=== PATIENT | male | born 1970 | race Caucasian/White ===

== ENCOUNTER 2017-10-14 20:08 | Emergency (ER) | payer SELFPAY ==
[2017-10-14] MEDS ORDERED: NS 0.9% 1000 ML* 1,000 ML IV ONE (20:29)
[2017-10-14] MEDS ORDERED: Ondansetron ODT TAB* 4 MG PO ONE (20:29)
[2017-10-14] MEDS ORDERED: Morphine INJ* 4 MG/ML 1 ML CARPUJECT IV ONE (20:29)
[2017-10-14] MEDS ORDERED: Tetan/Diph/Pertus SYR(Tdap)* 0.5 ML SYR(BOOSTRIX) use SYR IM ONE (20:29)
[2017-10-14 20:56] LABS: ABS Basophils 0.1 10^3/ul (0-0.2); ABS Eosinophils 0.2 10^3/ul (0-0.6); ABS Lymphocytes 1.9 10^3/ul (1.0-4.8); ABS Neutrophils 7.3 10^3/ul (1.5-7.7); ABS Nucleated RBC 0 10^3/ul; Eosinophil % 1.5 % (0-6); Hematocrit 50 % (42-52); Hemoglobin 16.8 g/dl (14.0-18.0); Lymphocyte % 18.1 % (25-47); Mean Corpuscular HGB Conc 34 g/dl (31-36); Mean Corpuscular Hemoglobin 28 pg (27-31); Mean Corpuscular Volume 81 fL (80-94); Mean Platelet Volume 9 um3 (7.4-10.4); Nucleated Red Blood Cells % 0.1; Platelet Count 153 10^3/ul (150-450); Red Blood Count 6.14 10^6/ul (4.0-5.4); Red Cell Distribution Width 14 % (10.5-15); White Blood Count 10.5 10^3/ul (3.5-10.8)
[2017-10-14 21:06] LABS: INR 0.96 (0.77-1.02)
[2017-10-14 21:09] LABS: EGFR Non-African American 63.7 (>60)
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
[2017-10-14] MEDS ORDERED: Ketorolac INJ* 30 MG/ML 1 ML VIAL ONE (22:38)
[2017-10-14] MEDS ORDERED: Ketorolac INJ* 30 MG/ML 1 ML VIAL IV PUSH ONE (22:39)
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
[2017-10-14 23:47] VITALS: BP 137/84
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
== END 2017-10-14 23:50 | disposition home or self-care (01) ==
LOC: ED 20:08
DX: S61.411A Laceration without foreign body of right hand, initial encounter (principal); V49.9XXA Car occupant (driver) (passenger) injured in unspecified traffic accident, initial encounter; Y92.410 Unspecified street and highway as the place of occurrence of the external cause; M54.2 Cervicalgia; R10.31 Right lower quadrant pain; Z87.891 Personal history of nicotine dependence
CPT/HCPCS: 12001; 36415; 70450; 71045; 72125; 80053; 82150; 82550; 83690; 85025; 85610; 85730; 90715; 96374; 99283; A9270-GY; J1885; J2270

== ENCOUNTER 2017-10-21 20:50 | Emergency (ER) | payer SELFPAY ==
[2017-10-21] MEDS ORDERED: Clindamycin CAP* 150 MG PO ONE (23:15)
[2017-10-21] MEDS ORDERED: oxyCODONE/Acetamin 5/325 MG* TAB PO ONE (23:15)
[2017-10-21 23:56] VITALS: BP 143/95
--- NOTE | 2017-10-22 00:03 | ED ---
Yael Presley Edward, scribed for Kirill Stephen MD on 10/21/17 at 2317 . Laceration/Wound HPI - HPI Summary HPI Summary: 47 y/o male presents to the ED c/o severe R hand pain at the site of previous laceration. Pain rated 8/10 in severity. Pt had his laceration sutured around 1 week ago. Today the pain became worse. Denies fever. Pain is aggravated to touch. Ibuprofen not alleviating pain. - History of Current Complaint Stated Complaint: RIGHT HAND INJURY Time Seen by Provider: 10/21/17 23:02 Hx Obtained From: Patient Onset/Duration: Lasting Days Aggravating: Other - touch Alleviating: Nothing Pain Intensity: 8 Pain Scale Used: 0-10 Numeric Associated Signs & Symptoms: Pain - Allergy/Home Medications Allergies/Adverse Reactions: Allergies Allergy/AdvReac Type Severity Reaction Status Date / Time No Known Allergies Allergy Verified 02/14/16 10:11 PMH/Surg Hx/FS Hx/Imm Hx Previously Healthy: No Cardiovascular History: Denies: Hx Myocardial Infarction Respiratory History: Reports: Hx Chronic Obstructive Pulmonary Disease (COPD) Psychiatric History: Reports: Hx Bipolar Disorder - Surgical History Surgery Procedure, Year, and Place: SINUS SURGERY, LAMINECTOMY 2008 Infectious Disease History: No Infectious Disease History: Denies: Traveled Outside the US in Last 30 Days - Family History Known Family History: Positive: Cardiac Disease - [place] (father, mother, grandparents), Diabetes - (father, mother, grandparents) - Social History Alcohol Use: None Substance Use Type: Reports: None Smoking Status (MU): Former Smoker Review of Systems Constitutional: Negative Eyes: Negative ENT: Negative Cardiovascular: Negative Respiratory: Negative Gastrointestinal: Negative Genitourinary: Negative Musculoskeletal: Negative Skin: Other - R hand pain at suture site Neurological: Negative Psychological: Normal All Other Systems Reviewed And Are Negative: Yes Physical Exam - Summary Physical Exam Summary: VITAL SIGNS: Reviewed. GENERAL: Patient is a well-developed and nourished male who is lying comfortable in the stretcher. Patient is not in any acute respiratory distress. HEAD AND FACE: No signs of trauma. No ecchymosis, hematomas or skull depressions. No sinus tenderness. EYES: PERRLA, EOMI x 2, No injected conjunctiva, no nystagmus. EARS: Hearing grossly intact. Ear canals and tympanic membranes are within normal limits. MOUTH: Oropharynx within normal limits. NECK: Supple, trachea is midline, no adenopathy, no JVD, no carotid bruit, no c- spine tenderness, neck with full ROM. CHEST: Symmetric, no tenderness at palpation LUNGS: Clear to auscultation bilaterally. No wheezing or crackles. CVS: Regular rate and rhythm, S1 and S2 present, no murmurs or gallops appreciated. ABDOMEN: Soft, non-tender. No signs of distention. No rebound no guarding, and no masses palpated. Bowel sounds are normal. EXTREMITIES: FROM in all major joints, no edema, no cyanosis or clubbing. NEURO: Alert and oriented x 3. No acute neurological deficits. Speech is normal and follows commands. SKIN: Dry and warm. R hand - 1 inch laceration with repair 1 week ago. Currently the site has no discharge. 2/6 sutures are out. Triage Information Reviewed: Yes Vital Signs On Initial Exam: Initial Vitals Temp Pulse Resp BP Pulse Ox 98.3 F 71 18 137/86 98 10/21/17 20:58 10/21/17 20:58 10/21/17 20:58 10/21/17 20:58 10/21/17 20:58 Vital Signs Reviewed: Yes - Tony Coma Scale Coma Scale Total: 15 Diagnostics - Vital Signs Vital Signs Temp Pulse Resp BP Pulse Ox 10/21/17 20:58 98.3 F 71 18 137/86 98 - Laboratory Lab Statement: Any lab studies that have been ordered have been reviewed, and results considered in the medical decision making process. - Radiology HAND XR Xray Interpretation: No Acute Changes Radiology Interpretation Completed By: ED Physician Re-Evaluation - Re-Evaluation 1 Re-Evaluation Time: 23:47 Comment: discuss plan to d/c Laceration Repair Course/Dx - Course Assessment/Plan: Pt comes into the ED with stitches @ R hand. Pt states the site hurts more today. On exam there are mild inflammatory signs around the stitches. Hand XR negative for acute changes. Pt will be d/c home with abx, percocet and f/u with PCP. - Clinical Impression Provider Diagnoses: Visit for wound check, Mild wound infection Discharge - Discharge Plan Condition: Stable Disposition: HOME Prescriptions: Clindamycin Cap(NF) [Clindamycin Cap 300 mg Cap(NF)] 300 mg PO Q6H #30 cap oxyCODONE/Acetamin 5/325 MG* [Percocet 5/325 TAB*] 1 tab PO Q6H PRN #14 tab MDD 4 PRN Reason: Pain Patient Education Materials: Care For Your Stitches (ED), Wound Infection (ED) Referrals: [facility] [place] [facility]IAN REFERRAL [Outside] - 4 Days (PLEASE F/U IN 3-5 DAYS) Additional Instructions: RETURN TO THE ED FOR RETURN OR WORSENING OF SYMPTOMS The documentation as recorded by the Yael acevedo Edward accurately reflects the service I personally performed and the decisions made by Zafar bonilla Abdul, MD.
--- NOTE | 2017-10-22 07:37 | RAD ---
INDICATION: Right hand injury. TECHNIQUE: 4 views of the right hand were obtained. FINDINGS: The bones are in normal alignment. No fracture is seen. Joint spaces appear maintained. IMPRESSION: NO EVIDENCE FOR FRACTURE. IF THE PATIENT'S SYMPTOMS PERSIST RECOMMEND FOLLOW-UP IMAGING.
== END 2017-10-21 23:58 | disposition home or self-care (01) ==
LOC: ED 20:50
DX: L08.89 Other specified local infections of the skin and subcutaneous tissue (principal); M79.641 Pain in right hand; S61.401S Unspecified open wound of right hand, sequela; Z87.09 Personal history of other diseases of the respiratory system; Z87.891 Personal history of nicotine dependence
CPT/HCPCS: 99282; A9270-GY

== ENCOUNTER 2018-01-20 09:27 | Emergency (ER) | payer MEDICARE ==
[2018-01-20] MEDS ORDERED: Ketorolac INJ* 60 MG/2 ML VIAL IM ONE (09:59)
[2018-01-20] MEDS ORDERED: Cyclobenzaprine TAB* 10 MG PO ONE (09:59)
[2018-01-20] MEDS ORDERED: tiZANidine TAB* 2 MG PO ONE (10:10)
[2018-01-20 12:29] VITALS: BP 121/73
--- NOTE | 2018-01-20 12:43 | ED ---
Back Pain - HPI Summary HPI Summary: Patient is a 47-year-old male presenting to the ED with chief complaint of 10 out of 10 low back pain which is bilateral and spasmodic. He has had a similar complaint 10 years ago and was seen by a neurosurgeon. He has been dealing with intermittent back pain since that time. He states this is similar to his first episode of spasmodic back pain which radiates into the bilateral posterior legs. Numbness or tingling is intermittent and not present at this time. He denies any weakness. He is ambulating. He has not tried anything for relief. He has not tried [id number] ibuprofen or Tylenol. Denies any bladder or bowel dysfunction. He takes no medications and states this was a work-related injury by lifting heavy objects. Denies any pain to the lumbar spine. - History of Current Complaint Chief Complaint: EDBackInjuryPain Stated Complaint: BACK PAIN-2 DAYS Time Seen by Provider: 01/20/18 09:39 Hx Obtained From: Patient Onset/Duration: Gradual Onset Onset/Duration: Started Hours Ago Timing: Constant Back Pain Location: Is Diffuse - Low back pain Severity Initially: Severe Severity Currently: Severe Pain Intensity: 0 Pain Scale Used: 0-10 Numeric Character: Aching Aggravating Symptom(s): Movement, Lifting, Bending Alleviating Symptom(s): Rest, Position, Heat Associated Signs And Symptoms: Positive: Negative. Negative: Weakness, Numbness , Abdominal Pain, Flank Pain, Bladder Incontinence, Bowel Incontinence, Weight Loss, Pain with Weight Bearing Related History: Previous Back Injury - Risk Factors AAA Risk Factors: Negative TAD Risk Factors: Negative Cauda Equina Risk Factors: Negative Epidural Abscess Risk Factors: Negative - Allergies/Home Medications Allergies/Adverse Reactions: Allergies Allergy/AdvReac Type Severity Reaction Status Date / Time No Known Allergies Allergy Verified 01/20/18 09:32 Home Medications: Home Medications Bupropion XL* [Wellbutrin XL *] 300 mg PO DAILY 01/20/18 [History Confirmed ] Omeprazole CAP* [Prilosec CAP* 20 MG] 20 mg PO BID 01/20/18 [History Confirmed 01/20/18] Rosuvastatin (NF) [Crestor (NF)] 40 mg PO DAILY 01/20/18 [History Confirmed ] Testosterone Cypionate (NF) [Testosterone Cypionate] 10 ml IM WEEKLY 01/20/18 [ History Confirmed 01/20/18] Ziprasidone * [Geodon (generic) *] 60 mg PO DAILY 01/20/18 [History Confirmed ] traZODone TAB* [Desyrel TAB*] 100 mg PO DAILY 01/20/18 [History Confirmed ] PMH/Surg Hx/FS Hx/Imm Hx Previously Healthy: Yes Cardiovascular History: Denies: Hx Myocardial Infarction Respiratory History: Reports: Hx Chronic Obstructive Pulmonary Disease (COPD) Psychiatric History: Reports: Hx Bipolar Disorder - Surgical History Surgery Procedure, Year, and Place: SINUS SURGERY, LAMINECTOMY 2007 - Immunization History Hx Pertussis Vaccination: No Immunizations Up to Date: Unable to Obtain/Confirm Infectious Disease History: No Infectious Disease History: Denies: Traveled Outside the US in Last 30 Days - Family History Known Family History: Positive: Cardiac Disease - [place] (father, mother, grandparents), Diabetes - (father, mother, grandparents) - Social History Occupation: Employed Full-time Lives: With Family Alcohol Use: None Hx Substance Use: No Substance Use Type: Reports: None Hx Tobacco Use: Yes Smoking Status (MU): Former Smoker Review of Systems Negative: Fever, Chills, Fatigue, Skin Diaphoresis Eyes: Negative Cardiovascular: Negative Negative: Palpitations, Chest Pain Negative: Shortness Of Breath, Cough Negative: Abdominal Pain, Vomiting, Diarrhea, Nausea Genitourinary: Negative Positive: no symptoms reported, see HPI Positive: Arthralgia, Myalgia, Decreased ROM Skin: Negative Negative: Headache, Paresthesia, Numbness, Syncope, Slurred Speech Psychological: Normal All Other Systems Reviewed And Are Negative: Yes Physical Exam Triage Information Reviewed: Yes Vital Signs On Initial Exam: Initial Vitals Temp Pulse Resp BP Pulse Ox 98.2 F 86 21 127/52 94 01/20/18 09:32 01/20/18 09:32 01/20/18 09:32 01/20/18 09:32 01/20/18 09:32 Vital Signs Reviewed: Yes Appearance: Positive: Pain Distress Skin: Positive: Warm, Skin Color Reflects Adequate Perfusion Head/Face: Positive: Normal Head/Face Inspection Eyes: Positive: EOMI, PARESH, Conjunctiva Clear Neck: Positive: Supple, No Lymphadenopathy Respiratory/Lung Sounds: Positive: Clear to Auscultation, Breath Sounds Present Cardiovascular: Positive: RRR, Pulses are Symmetrical in both Upper and Lower Extremities Musculoskeletal: Positive: Pain @ - Diffuse low back pain bilaterally with spasms Neurological: Positive: Sensory/Motor Intact, Alert, Oriented to Person Place, Time, CN Intact II-III, Reflexes Intact, Speech Normal Psychiatric: Positive: Normal AVPU Assessment: Alert Diagnostics - Vital Signs Vital Signs Temp Pulse Resp BP Pulse Ox 01/20/18 12:18 98.2 F 83 18 121/73 99 01/20/18 09:32 98.2 F 86 21 127/52 94 - Laboratory Lab Statement: Any lab studies that have been ordered have been reviewed, and results considered in the medical decision making process. Back Pain Course/Dx - Course Course Of Treatment: During the course of treatment, the patient is evaluated for acute low back pain with spasms sparing the midline lower spine. He is given tizanidine and Toradol with relief. I have discussed obtaining a CT scan and due to the nature of the spasms without midline tenderness, bladder or bowel dysfunction, weakness or foot drop, I do not believe it is imperative at this time. Patient is okay with this plan. I have discussed adding prednisone as well as tizanidine for at home and have encouraged moist heat, Tylenol and ibuprofen. - Diagnoses Differential Diagnosis/HQI/PQRI: Positive: Herniated Disc, Strain, Sprain. Negative: Cauda Equina Syndrome, Compressive Cord Syndrome, Epidural Abscess Provider Diagnoses: Bilateral sciatica Images - Images Full Body (No Head): 1 - lumbar spine pain to the bilateral flanks without midline back tenderness on palpation of the spine Discharge - Sign-Out/Discharge Documenting (check all that apply): Discharge - Discharge Plan Condition: Stable Disposition: HOME Prescriptions: predniSONE TAB* [Deltasone TAB*] 50 mg PO DAILY #5 tab MDD 1 tiZANidine TAB* [Zanaflex TAB*] 2 mg PO TID #18 tab MDD 3 Patient Education Materials: Muscle Spasm (ED) Forms: *Work Release Referrals: Stefano Muir MD [Primary Care Provider] - Additional Instructions: Prednisone 50 mg once daily 5 days Tizanidine 2 mg up to 3 times daily for back spasms Moist heat to the area as much as possible Please follow-up with Dr. Lehman for any worsening or changing symptoms If he develop fever, foot drop or bladder or bowel dysfunction or worsening weakness, return to the ED immediately Ibuprofen 600 mg 3 times daily and Tylenol 650 mg 3 times daily, use these intermittently - Billing Disposition and Condition Condition: STABLE Disposition: HOME
== END 2018-01-20 12:18 | disposition home or self-care (01) ==
LOC: ED 09:27
DX: M54.32 Sciatica, left side (principal); M54.31 Sciatica, right side; Z87.891 Personal history of nicotine dependence; F31.9 Bipolar disorder, unspecified; J44.9 Chronic obstructive pulmonary disease, unspecified
CPT/HCPCS: 96372; 99282; A9270-GY; J1885

== ENCOUNTER 2018-02-27 11:54 | Observation (INO) | payer MEDICARE ==
[2018-02-27] MEDS ORDERED: NS 0.9% 1000 ML* 1,000 ML IV ONE (12:16)
[2018-02-27] MEDS ORDERED: Aspirin 81 mg CHEW TAB* 81 MG TAB.CHEW PO ONE (12:18)
[2018-02-27 12:49] LABS: ABS Basophils 0.1 10^3/ul (0-0.2); ABS Eosinophils 0.2 10^3/ul (0-0.6); ABS Lymphocytes 1.5 10^3/ul (1.0-4.8); ABS Monocytes 0.6 10^3/ul (0-0.8); ABS Nucleated RBC 0 10^3/ul; Eosinophil % 2.7 % (0-6); Hematocrit 48 % (42-52); Hemoglobin 15.9 g/dl (14.0-18.0); Lymphocyte % 23.6 % (25-47); Mean Corpuscular HGB Conc 34 g/dl (31-36); Mean Corpuscular Hemoglobin 27 pg (27-31); Mean Corpuscular Volume 81 fL (80-94); Mean Platelet Volume 8.8 um3 (7.4-10.4); Nucleated Red Blood Cells % 0.1; Platelet Count 124 10^3/ul (150-450); Red Blood Count 5.84 10^6/ul (4.0-5.4); Red Cell Distribution Width 15 % (10.5-15); White Blood Count 6.3 10^3/ul (3.5-10.8)
[2018-02-27 12:59] LABS: INR 0.91 (0.77-1.02)
--- NOTE | 2018-02-27 13:09 | RAD ---
HISTORY: Chest pain COMPARISONS: October 14, 2017 VIEWS: 1: frontal portable view of the chest at 12:40 PM FINDINGS: LINES AND TUBES: None. CARDIOMEDIASTINAL SILHOUETTE: The cardiomediastinal silhouette is normal for portable technique. PLEURA: The costophrenic angles are sharp. No pleural abnormalities are noted. LUNG PARENCHYMA: There is minimal linear opacification of the left lung base. ABDOMEN: The upper abdomen is clear. There is no subphrenic gas. BONES AND SOFT TISSUES: No bone or soft tissue abnormalities are noted. IMPRESSION: MINIMAL LINEAR ATELECTASIS OF THE LEFT LUNG BASE.
[2018-02-27 13:17] LABS: EGFR Non-African American 73.5 (>60)
[2018-02-27] MEDS ORDERED: Al Hydrox/Mg Hydrox/Simet LIQ* 30 ML UDC PO PRN (14:36)
[2018-02-27] MEDS ORDERED: Albuterol HFA INHALER* 8 gm MDI INH PRN (15:13)
--- NOTE | 2018-02-27 16:50 | ECHO ---
Patient: ALIE AVITIA [facility] Rec#: [id number] : 1970 Date: 02/27/2018 Age: 47y Height: 185.42 cm / 73.0 in Weight: 111.13 kg / 244.9 lbs Sex: M BSA: 2.35 Room#: -11 Admit Date#: 02/27/2018 Type: Inpatient Referring: Aline Boles MD Reading: Kenia Stone MD Telemarketing Manager: Ronda FeldmanBINU CC: Stefano Muir MD Transthoracic Echocardiogram Indication: Chest Pain BP: 114/74 HR: 63 Rhythm: NSR Findings History: COPD and former smoker. Technical Comments: The study quality is fair. Completed at 1615. Left Ventricle: The left ventricular chamber size is normal. Mild to moderate concentric left ventricular hypertrophy is observed. Left ventricular systolic function is at the lower limits of normal. Subtle relative hypokinesis of the base of the inferior wall seen on 2 chamber view, may be varient of normal. The estimated ejection fraction is 50-55%. There is no consistent Doppler evidence of clinically significant diastolic dysfunction. Left Atrium: The left atrium is mildly dilated. Right Ventricle: Moderator Band present. The right ventricle is mildly dilated. The right ventricular global systolic function is normal. Right Atrium: The right atrium is mild to moderately dilated. Aortic Valve: The aortic valve is trileaflet. There is no evidence of aortic valve thickening. There is no evidence of aortic regurgitation. There is no evidence of aortic stenosis. Mitral Valve: The mitral valve leaflets are mildly thickened. There is mild to moderate mitral regurgitation. There is no evidence of mitral stenosis. Tricuspid Valve: The tricuspid valve leaflets are mildly thickened. There is trace tricuspid regurgitation. The right ventricular systolic pressure is estimated at 24 mmHg. There is evidence that pulmonary hypertension may be underestimated. There is no tricuspid stenosis. Pulmonic Valve: The pulmonic valve appears normal. There is a trace pulmonic regurgitation. There is no pulmonic stenosis. Pericardium: There is no significant pericardial effusion. Aorta: There is mild dilatation of the ascending aorta. The aortic arch is not well visualized. There is mild dilatation of the aortic root. Pulmonary Artery: The main pulmonary artery is not well visualized. Venous: The inferior vena cava appears normal in size. There is less than 50% respiratory change in the inferior vena cava dimension. Conclusions Mild to moderate concentric left ventricular hypertrophy is observed. Base of inferior wall subtle relative hypokinesis, see text, may be varient of normal. The estimated ejection fraction is 50-55%. The right ventricle is mildly dilated. The right ventricular global systolic function is normal. There is mild to moderate mitral regurgitation. There is trace tricuspid regurgitation. The right ventricular systolic pressure is estimated at 24 mmHg, may be underestimated. There is mild dilatation of the ascending aorta. No prior echo to compare. Measurements Name Value Normal Range RVIDd (AP) 2D 3.5 cm (0.9 - 2.6) RVDdMajor (2D) 4.6 cm (2.2 - 4.4) RAd ISD 4CH 5.4 cm (3.4 - 4.9) RA (A4C)W 4 cm (2.9 - 4.6) IVSd (2D) 1.3 cm (0.6 - 1) LVPWd (2D) 1.3 cm (0.6 - 1) LVIDd (2D) 4.6 cm (3.6 - 5.4) LVIDs (2D) 2.8 cm - LV FS (2D) 40 % (25 - 45) Aortic Annulus 2.4 cm (1.4 - 2.6) Ao root diameter (2D) 3.7 cm (2.1 - 3.5) Ascending Ao 3.6 cm (2.1 - 3.4) LA dimension (AP) 2D 3.9 cm (2.3 - 3.8) LAd ISD 4CH 5.3 cm (2.9 - 5.3) LA ISD 4CH W 5.2 cm (2.5 - 4.5) Name Value Normal Range LA ESV SP 4CH (A/L) 95 ml - LA ESV SP 2CH (A/L) 64 ml - LA ESV BP (A/L) 83 ml - LA ESV BP (A/L) index 35 ml/m2 - LA ESV SP 4CH (MOD) 89 ml - LA ESV SP 2CH (MOD) 62 ml - Name Value Normal Range MV E-wave Vmax 0.77 m/sec - MV deceleration time 230.5 msec - MV A-wave Vmax 0.47 m/sec - MV E:A ratio 1.62 ratio - LV septal e' Vmax 0.08 m/sec - LV lateral e' Vmax 0.1 m/sec - LV E:e' septal ratio 9.63 ratio - LV E:e' lateral ratio 7.7 ratio - Name Value Normal Range AV Vmax 1.2 m/sec - AV VTI 24.8 cm - AV peak gradient 5.32 mmHg - AV mean gradient 2.8 mmHg - LVOT Vmax 0.99 m/sec - LVOT VTI 20.95 cm - LVOT peak gradient 3.95 mmHg - LVOT mean gradient 2.29 mmHg - Name Value Normal Range TR Vmax 2 m/sec - TR peak gradient 16 mmHg - RAP 8 mmHg - RVSP 24 mmHg - IVC diameter 1.8 cm - Name Value Normal Range PV Vmax 0.99 m/sec - PV peak gradient 3.92 mmHg -
[2018-02-27] MEDS: Acetaminophen TAB* 325 MG PO PRN (18:18)
[2018-02-27] MEDS: Morphine VIAL* 4 MG/ML VIAL (1 ml vial) IV PRN (19:25)
[2018-02-27] MEDS: Omeprazole CAP* 20 MG PO SCH (21:50)
[2018-02-27] MEDS: traZODone TAB* 100 MG PO SCH (21:50)
[2018-02-27] MEDS: Ziprasidone * 20 MG CAP (generic Geodon) PO SCH (21:50)
[2018-02-27] MEDS: Heparin VIAL(*) 5000 UNITS/ML VIAL (FIVE THOUSAND) SUBCUT SCH (21:51)
--- NOTE | 2018-02-27 22:09 | HP ---
CC: Dr. Stefano Muir * HISTORY AND PHYSICAL: DATE OF ADMISSION: 02/27/18 PRIMARY CARE PROVIDER: Dr. Stefano Muir from [place], [place]. Phone number is [phone]. The office is named [facility]. CHIEF COMPLAINT: Chest pain. HISTORY OF PRESENT ILLNESS: Domenico Man is a 47-year-old male with history of obesity, PTSD, bipolar disease, and COPD, who is visiting in [place] for the past 2 days. He came into our ER with complaints of chest pain that had been going on for over a week. The patient states that the chest pain occurs at different times of the day and does not depend on exercise. He stated that he would have chest pain when sleeping and when working. Exercise does not make the pain worse. He stated that his shortness of breath has also been worse and sometimes the shortness of breath is worse due to chest pain. The chest pain he describes as pressure localized to the left upper chest radiating to the left arm and left neck making his neck numb. The patient's COPD had also been uncontrolled. He takes nebulizers only and does not have handheld inhalers due to financial issues. The patient apparently was advised to be on oxygen in 2013, but he refused because he "didn' t want to wear it." He is going to be admitted for overnight observation with a diagnosis of chest pain. PAST MEDICAL HISTORY: Please note that the patient is rather convoluted and poor historian, but past medical history includes: 1. Chronic lower back pain, status post laminectomy in 2007. 2. History of COPD for which he was prescribed oxygen, but refused to use it in 2012. 3. History of respiratory failure from aspiration pneumonia in 2012 for which he was treated in [facility]. 4. History of cardiac catheterization in 2009, which was performed due to an episode of congestive heart failure. He had the cardiac catheterization at [facility] that happened approximately 10 years ago, but the patient does not know the exact year. He stated that he "didn't need a stent." He never followed up with Cardiology later. 5. History of bipolar disease. 6. History of PTSD. 7. History of depression. 8. The patient stated that he was born with hypopituitarism and had been on testosterone supplements ever since adolescence. MEDICATIONS: Include: 1. DuoNeb on a p.r.n. basis. 2. Crestor 40 mg daily. 3. Omeprazole 20 mg b.i.d. 4. Wellbutrin XL 300 mg daily. 5. Geodon 60 mg daily. 6. Testosterone injections IM weekly. 7. Trazodone 300 mg at bedtime. ALLERGIES: No known drug allergies. FAMILY HISTORY: Positive for both parents dying in their 50s from heart disease. SOCIAL HISTORY: The patient has history of smoking 3 packs per day for over 20 years, quitting in 2007. The patient also has history of alcoholism and he is a recovering alcoholic since 2007. The patient currently lives alone and he is going through divorce. 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 As his surrogates he names his sister, Mary Doty, phone number [phone]. REVIEW OF SYSTEMS: Please see history of present illness. All the remaining 12 systems were reviewed with the patient and were otherwise negative. PHYSICAL EXAMINATION GENERAL: The patient is a very pleasant 47-year-old male with a BMI of 30 kg/ sq. m. The patient is in no acute distress. Alert, awake, and oriented x3. VITAL SIGNS: Blood pressure of 114/74, heart rate of 64 and regular, respiratory rate 12, oxygen saturation 98% on room air, temperature of 98.9. HEENT: Head: Atraumatic, normocephalic. Eyes: Pupils are equal, reactive to light and accommodation. Oropharynx clear. Mucosa dry. NECK: Supple. No JVD. No bruits bilaterally. RESPIRATORY: Clear to auscultation bilaterally. CARDIOVASCULAR: Regular rate and rhythm. No murmur. ABDOMEN: Soft, nontender. Bowel sounds are present in all 4 quadrants. EXTREMITIES: There is no edema. Pulses are 2+ bilaterally. No clubbing or cyanosis. NEURO: Speech clear. Cranial nerves II through XII are grossly intact. Motor strength is 5/5 bilaterally. PSYCHIATRIC: Pleasant, cooperative with evaluation, oriented x3 with no evidence of anxiety or depression. DIAGNOSTIC STUDIES/LAB DATA: Showed white blood cell count of 6.3, hemoglobin of 15.9, hematocrit of 48, and platelets of 124. Sodium was 135, potassium 3.9, chloride 105, carbon dioxide 24, BUN 14, creatinine 1.07. Liver function tests were unremarkable. Glucose level of 164 that was random glucose. TSH of 1.32. The patient's EKG showed sinus rhythm with stigmata of LVH. Portable chest x-ray, impression: "Minimal linear atelectasis at the left lung base." ASSESSMENT AND PLAN: 1. In regards to the patient's chest pain, although it appears to be angina related, the patient's workup so far is pretty unremarkable. His EKG does show LVH and I do not have old EKGs available for comparison. The patient also stated that he had cardiac catheterization at [facility] 10 years ago that showed "no need for a stent." The patient also added that the nitroglycerin definitely improved the pain as well as oxygen. At this point, I am going to talk about this patient with cardiology services, but likely the patient is going to be observed on telemetry monitored bed with plan for a stress test in the morning if his troponins continue to be negative. 2. In regards to the patient's chronic obstructive pulmonary disease, it appears to be rather uncontrolled, but not in exacerbation. It is uncontrolled due to the patient not using regular inhalers, only nebulizer. The patient has not been able to use his nebulizers since he had been visiting [place] for the past 2 days. At this point, I will ask group social worker to see the patient in consultation. I will also prescribe albuterol inhaler on a p.r.n. basis. 3. In regards to the patient's psychiatric problems with posttraumatic stress disorder, bipolar disorder, the patient is going to be continued on his outpatient psychiatric medications. 4. For DVT prophylaxis, the patient is going to be placed on heparin subcutaneously. 5. The patient's code status is full. His surrogate is his sister as mentioned above. TIME SPENT: Approximately 72 minutes was spent on admission of this patient, more than half of that time was spent [id number] with the patient during the interview and physical exam. [id number]/[facility] #: [id number] LIBRA
[2018-02-28] MEDS: Heparin VIAL(*) 5000 UNITS/ML VIAL (FIVE THOUSAND) SUBCUT SCH ×3 (05:18→21:44)
[2018-02-28] MEDS: BuPROPion XL* 300 MG TAB.XL PO SCH (07:59)
[2018-02-28] MEDS: Aspirin 81 mg CHEW TAB* 81 MG TAB.CHEW PO SCH (07:59)
[2018-02-28] MEDS: Omeprazole CAP* 20 MG PO SCH ×2 (07:59→20:08)
[2018-02-28] MEDS ORDERED: Ziprasidone * 20 MG CAP (generic Geodon) PO SCH (09:00)
[2018-02-28] MEDS: Acetaminophen TAB* 325 MG PO PRN ×2 (10:34→21:43)
[2018-02-28] MEDS: Morphine VIAL* 4 MG/ML VIAL (1 ml vial) IV PRN (10:35)
[2018-02-28] MEDS: oxyCODONE TAB* 5 MG TAB PO PRN ×2 (15:18→20:10)
--- NOTE | 2018-02-28 16:28 | PN ---
Subjective Date of Service: 02/28/18 Interval History: Patient had CP with stress test and shortness of breath making him unable to reach maximal heart rate. Patient complains of pain in his back and legs which is chronic but that he uses medical marijuana for with good effect at home. Was previously admitted for Chest pain with "fluid around my heart" which resolved with diuresis and accompanied by a normal catheterization. Patient does not know the underlying cause of this. Patient has previously been on a maintenance inhaler for his COPD but does not know the name and hasn't taken it recently. Patient denies F/C, N/V, abdominal pain, diarrhea, dysuria, dizziness, palpitations or other pain. Patient in the evening had an episode of chest pain and tightness which resolved with Nitroglycerin. No EKG changes. Family History: Unchanged from Admission Social History: Unchanged from Admission Past Medical History: Unchanged from Admission Objective Active Medications: Acetaminophen (Tylenol Tab*) 650 mg PO Q4H PRN PRN Reason: FEVER/PAIN Last Admin: 02/28/18 10:34 Dose: 650 mg Al Hydrox/Mg Hydrox/Simethicone (Maalox Plus*) 30 ml PO Q6H PRN PRN Reason: INDIGESTION Albuterol (Ventolin Hfa Inhaler*) 2 puff INH Q4H PRN PRN Reason: SOB/WHEEZING Aspirin (Aspirin 81 Mg Chew Tab*) 81 mg PO DAILY [facility] Last Admin: 02/28/18 07:59 Dose: 81 mg Bupropion HCl (Bupropion Xl*) 300 mg PO DAILY [facility] PRN Reason: Protocol Last Admin: 02/28/18 07:59 Dose: 300 mg Heparin Sodium (Porcine) (Heparin Vial(*)) 5,000 units SUBCUT Q8HR [facility] Last Admin: 02/28/18 15:18 Dose: 5,000 units Omeprazole (Prilosec Cap*) 20 mg PO BID [facility] Last Admin: 02/28/18 07:59 Dose: 20 mg Oxycodone HCl (Roxycodone Tab*) 5 mg PO Q4H PRN PRN Reason: PAIN Last Admin: 02/28/18 15:18 Dose: 5 mg Trazodone HCl (Desyrel Tab*) 300 mg PO BEDTIME [facility] Last Admin: 02/27/18 21:50 Dose: 300 mg Ziprasidone (Geodon (Generic) *) 120 mg PO BEDTIME [facility] Last Admin: 02/27/18 21:50 Dose: 120 mg Vital Signs - 8 hr 02/28/18 02/28/18 02/28/18 10:35 11:02 15:11 Temperature 99.0 F 97.4 F Pulse Rate 63 65 Respiratory 18 14 12 Rate Blood Pressure 117/84 134/77 (mmHg) O2 Sat by Pulse 97 96 Oximetry 02/28/18 02/28/18 15:13 15:18 Temperature Pulse Rate Respiratory 18 20 Rate Blood Pressure (mmHg) O2 Sat by Pulse Oximetry Oxygen Devices in Use Now: None Appearance: Patient is a 47yo male who appears stated age and is sitting in the bed in NAD. Eyes: No Scleral Icterus, PERRLA Ears/Nose/Mouth/Throat: NL Teeth, Lips, Gums, Clear Oropharnyx, Mucous Membranes Moist Neck: NL Appearance and Movements; NL JVP, Trachea Midline Respiratory: Symmetrical Chest Expansion and Respiratory Effort, Clear to Auscultation Cardiovascular: NL Sounds; No Murmurs; No JVD, RRR, No Edema Abdominal: NL Sounds; No Tenderness; No Distention, No Hepatosplenomegaly Lymphatic: No Cervical Adenopathy Extremities: No Edema, No Clubbing, Cyanosis Skin: No Rash or Ulcers, No Nodules or Sclerosis Neurological: Alert and Oriented x 3, NL Sensation, NL Muscle Strength and Tone , - - CN II-XII intact. Result Diagrams: 02/27/18 12:33 02/27/18 12:33 Assess/Plan/Problems-Billing Assessment: Patient is a 47yo male with a PMH for An episode of acute CHF, COPD, chronic pain and biplar disorder who has been having chest pain radiating to his neck and arm both with activity and at rest. Patient had chest pain after his stress test and then again in the evening of 02/28. Patient will have a repeat nuclear stress test. - Patient Problems (1) Chest pain Current Visit: Yes Status: Acute Code(s): R07.9 - CHEST PAIN, UNSPECIFIED SNOMED Code(s): 17518403 Comment: Intermittent, occuring at rest and with activity. Radiating to neck and arm. Relieved by nitro. Occurred after stress test. Normal catheterization 10 years ago. Unable to achieve maximal HR in stress echo. Will repeat nuclear chemical stress test tomorrow. (2) COPD (chronic obstructive pulmonary disease) Current Visit: No Status: Acute Code(s): J44.9 - CHRONIC OBSTRUCTIVE PULMONARY DISEASE, UNSPECIFIED SNOMED Code(s): 02865683 Comment: Albuterol PRN, not in exacerbation. Advanced, previously qualified for home O2. Patient should follow up with primary and be reinstituted on controller therapy , get PFTs and probably should be on oxygen. (3) Bipolar disorder Current Visit: Yes Status: Acute Comment: Continue home medications. meterman use of atypical antipsychotics predisposes to metabolic syndrome and heart disease. (4) Full code status Current Visit: Yes Status: Acute Code(s): Z78.9 - OTHER SPECIFIED HEALTH STATUS SNOMED Code(s): 019110485 (5) DVT prophylaxis Current Visit: Yes Status: Acute Code(s): EFU9899 - SNOMED Code(s): 315105598 Comment: Heparin SubQ. Status and Disposition: Inpatient for stress test.
[2018-02-28] MEDS ORDERED: Nitroglycerin TAB 0.4 MG* 0.4 MG TAB SL PRN (16:37)
[2018-02-28] MEDS ORDERED: Nitroglycerin TAB 0.4 MG* 0.4 MG TAB ONE (16:38)
[2018-02-28] MEDS: Ziprasidone * 20 MG CAP (generic Geodon) PO SCH (20:07)
[2018-02-28] MEDS: traZODone TAB* 100 MG PO SCH (20:08)
--- NOTE | 2018-02-28 21:11 | ED ---
Radha Presley Rebecca, scribed for Diego Jolley MD on 02/27/18 at 1215 . HPI Chest Pain - HPI Summary HPI Summary: Pt is a 47 y/o M BIBA who presents to ED c/o CP. Sx have been present for the past week, intermittent since onset. Pain is in the midsternal region with radiation to the left jaw and left arm, ranked mild 3/10 on triage. Described as heaviness likening it to "somebody standing on my chest." Reports no pattern to the pain's onset, stating that it can occur while at rest, exertion, driving , etc. Given 324 mg ASA and 1 SL NTG en route which alleviated symptoms slightly. Additionally c/o nausea, diaphoresis and near syncope. Near syncope this morning prompted him to come to the ED. PMHx CHF, HTN, borderline DM. Significant FHx for CAD and cardiac related deaths. - History of Current Complaint Chief Complaint: EDChestPainROMI Time Seen by Provider: 02/27/18 12:05 Hx Obtained From: Patient Onset/Duration: Started Weeks Ago - 1 week, Still Present Timing: Intermittent Current Severity: Mild Pain Intensity: 3 Pain Scale Used: 0-10 Numeric Chest Pain Location: Mid Sternal Chest Pain Radiates: Yes Chest Pain Radiates To:: Arm - Left, Jaw - Left Character: Pressure/Squeezing Aggravating Factor(s): Nothing Alleviating Factor(s): NTG 123 - 1 SL, OTC Meds - 324 mg ASA Associated Signs and Symptoms: Positive: Diaphoresis, Nausea - Allergy/Home Medications Allergies/Adverse Reactions: Allergies Allergy/AdvReac Type Severity Reaction Status Date / Time No Known Allergies Allergy Verified 01/20/18 09:32 Home Medications: Home Medications Ziprasidone * [Geodon (generic) *] 60 mg PO DAILY 02/27/18 [History Confirmed ] traZODone TAB* [Desyrel TAB*] 300 mg PO BEDTIME 02/27/18 [History Confirmed ] PMH/Surg Hx/FS Hx/Imm Hx Endocrine/Hematology History: Reports: Hx Diabetes - [place] Cardiovascular History: Reports: Hx Congestive Heart Failure, Hx Hypertension Denies: Hx Myocardial Infarction Respiratory History: Reports: Hx Chronic Obstructive Pulmonary Disease (COPD) Psychiatric History: Reports: Hx Bipolar Disorder - Surgical History Surgery Procedure, Year, and Place: SINUS SURGERY, LAMINECTOMY 2008 Infectious Disease History: No Infectious Disease History: Denies: Traveled Outside the [place] in Last 30 Days - Family History Known Family History: Positive: Cardiac Disease - [place] (father, mother, grandparents), Diabetes - (father, mother, grandparents) - Social History Alcohol Use: None Hx Substance Use: No Substance Use Type: Reports: None Hx Tobacco Use: Yes Smoking Status (MU): Former Smoker Review of Systems Positive: Skin Diaphoresis Positive: Chest Pain Positive: Nausea Neurological: Other - Near syncope All Other Systems Reviewed And Are Negative: Yes Physical Exam - Summary Physical Exam Summary: VITAL SIGNS: Reviewed. GENERAL: Patient is a well-developed and nourished male who is lying comfortable in the stretcher. Patient is not in any acute respiratory distress. HEAD AND FACE: No signs of trauma. No ecchymosis, hematomas or skull depressions. No sinus tenderness. EYES: PERRLA, EOMI x 2, No injected conjunctiva, no nystagmus. EARS: Hearing grossly intact. Ear canals and tympanic membranes are within normal limits. MOUTH: Oropharynx within normal limits. NECK: Supple, trachea is midline, no adenopathy, no JVD, no carotid bruit, no c- spine tenderness, neck with full ROM. CHEST: Symmetric, no tenderness at palpation LUNGS: Clear to auscultation bilaterally. No wheezing or crackles. CVS: Regular rate and rhythm, S1 and S2 present, no murmurs or gallops appreciated. ABDOMEN: Soft, non-tender. No signs of distention. No rebound no guarding, and no masses palpated. Bowel sounds are normal. EXTREMITIES: FROM in all major joints, no edema, no cyanosis or clubbing. NEURO: Alert and oriented x 3. No acute neurological deficits. Speech is normal and follows commands. SKIN: Dry and warm Triage Information Reviewed: Yes Vital Signs On Initial Exam: Initial Vitals Temp Pulse Resp BP Pulse Ox 98.9 F 94 23 105/73 96 02/27/18 12:04 02/27/18 12:04 02/27/18 12:04 02/27/18 12:04 02/27/18 12:04 Vital Signs Reviewed: Yes Diagnostics - Vital Signs Vital Signs Temp Pulse Resp BP Pulse Ox 02/27/18 12:09 89 18 95 02/27/18 12:04 98.9 F 94 23 105/73 96 - Laboratory Lab Results: Lab Results 02/27/18 02/27/18 02/27/18 Range/Units 12:33 12:33 12:33 WBC 6.3 (3.5-10.8) 10^3/ul RBC 5.84 H (4.0-5.4) 10^6/ul Hgb 15.9 (14.0-18.0) g/dl Hct 48 (42-52) % MCV 81 (80-94) fL MCH 27 (27-31) pg MCHC 34 (31-36) g/dl RDW 15 (10.5-15) % Plt Count 124 L (150-450) 10^3/ul MPV 8.8 (7.4-10.4) um3 Neut % (Auto) 63.2 (38-83) % Lymph % (Auto) 23.6 L (25-47) % [place] % (Auto) 9.4 H (0-7) % Eos % (Auto) 2.7 (0-6) % Baso % (Auto) 1.1 (0-2) % Absolute Neuts (auto) 4.0 (1.5-7.7) 10^3/ul Absolute Lymphs (auto) 1.5 (1.0-4.8) 10^3/ul Absolute Monos (auto) 0.6 (0-0.8) 10^3/ul Absolute Eos (auto) 0.2 (0-0.6) 10^3/ul Absolute Basos (auto) 0.1 (0-0.2) 10^3/ul Absolute Nucleated RBC 0 10^3/ul Nucleated RBC % 0.1 INR (Anticoag Therapy) (0.77-1.02) APTT (26.0-36.3) seconds Sodium 135 L (139-145) mmol/L Potassium 3.9 (3.5-5.0) mmol/L Chloride 105 (101-111) mmol/L Carbon Dioxide 24 (22-32) mmol/L Anion Gap 6 (2-11) mmol/L BUN 14 (6-24) mg/dL Creatinine 1.07 (0.67-1.17) mg/dL Est GFR ( Amer) 94.5 (>60) Est GFR (Non-Af Amer) 73.5 (>60) BUN/Creatinine Ratio 13.1 (8-20) Glucose 164 H (70-100) mg/dL Lactic Acid 1.4 (0.5-2.0) mmol/L Calcium 8.6 (8.6-10.3) mg/dL Magnesium 1.9 (1.9-2.7) mg/dL Total Bilirubin 0.40 (0.2-1.0) mg/dL AST 14 (13-39) U/L ALT 15 (7-52) U/L Alkaline Phosphatase 53 (34-104) U/L Total Creatine Kinase 54 (10-223) U/L CK-MB (CK-2) 1.7 (0.6-6.3) ng/mL Troponin I 0.00 (<0.04) ng/mL B-Natriuretic Peptide ( - 100) pg/mL Total Protein 6.5 (6.4-8.9) g/dL Albumin 4.0 (3.2-5.2) g/dL Globulin 2.5 (2-4) g/dL Albumin/Globulin Ratio 1.6 (1-3) TSH 1.32 (0.34-5.60) mcIU/mL 02/27/18 02/27/18 Range/Units 12:33 12:33 WBC (3.5-10.8) 10^3/ul RBC (4.0-5.4) 10^6/ul Hgb (14.0-18.0) g/dl Hct (42-52) % MCV (80-94) fL MCH (27-31) pg MCHC (31-36) g/dl RDW (10.5-15) % Plt Count (150-450) 10^3/ul MPV (7.4-10.4) um3 Neut % (Auto) (38-83) % Lymph % (Auto) (25-47) % [place] % (Auto) (0-7) % Eos % (Auto) (0-6) % Baso % (Auto) (0-2) % Absolute Neuts (auto) (1.5-7.7) 10^3/ul Absolute Lymphs (auto) (1.0-4.8) 10^3/ul Absolute Monos (auto) (0-0.8) 10^3/ul Absolute Eos (auto) (0-0.6) 10^3/ul Absolute Basos (auto) (0-0.2) 10^3/ul Absolute Nucleated RBC 10^3/ul Nucleated RBC % INR (Anticoag Therapy) 0.91 (0.77-1.02) APTT 29.2 (26.0-36.3) seconds Sodium (139-145) mmol/L Potassium (3.5-5.0) mmol/L Chloride (101-111) mmol/L Carbon Dioxide (22-32) mmol/L Anion Gap (2-11) mmol/L BUN (6-24) mg/dL Creatinine (0.67-1.17) mg/dL Est GFR ( Amer) (>60) Est GFR (Non-Af Amer) (>60) BUN/Creatinine Ratio (8-20) Glucose (70-100) mg/dL Lactic Acid (0.5-2.0) mmol/L Calcium (8.6-10.3) mg/dL Magnesium (1.9-2.7) mg/dL Total Bilirubin (0.2-1.0) mg/dL AST (13-39) U/L ALT (7-52) U/L Alkaline Phosphatase (34-104) U/L Total Creatine Kinase (10-223) U/L CK-MB (CK-2) (0.6-6.3) ng/mL Troponin I (<0.04) ng/mL B-Natriuretic Peptide 17 ( - 100) pg/mL Total Protein (6.4-8.9) g/dL Albumin (3.2-5.2) g/dL Globulin (2-4) g/dL Albumin/Globulin Ratio (1-3) TSH (0.34-5.60) mcIU/mL Result Diagrams: 02/27/18 12:33 02/27/18 12:33 Lab Statement: Any lab studies that have been ordered have been reviewed, and results considered in the medical decision making process. - Radiology CXR Radiology Interpretation Completed By: Radiologist - MINIMAL LINEAR ATELECTASIS OF THE LEFT LUNG BASE. ED physician reviewed this report. - EKG 1204 Cardiac Rate: NL - 89 bpm EKG Rhythm: Sinus Rhythm EKG Interpretation: No ST elevations Chest Pain Course/Dx - Course Assessment/Plan: This patient is a 47-year-old male who presents to the emergency department with a chief complaint of having left-sided chest pain the patient to the neck, diaphoresis, nausea without vomiting, shortness of breath on occasion feeling that he is going to pass out. He has past medical history significant for GERD, dyslipidemia, depression, insomnia, hypertension, and CHF. Blood tests without any significant abnormality except for sodium 135 glucose 164 and the troponin is 0.00. Since the patients presentation he is comorbidities I believe that we need to rule out acute coronary syndrome. I discuss my physical exam, findings and test results with Dr. Boles from the hospitalist services and he agrees to admit patient to his services. Patient is hemodynamically stable alert and oriented x 3. - Chest Pain Differential Diagnosis/HQI/PQRI: Acute [place], ACS, Angina, CHF, Chest Wall, GI Disease, Lower Respiratory Infection - Diagnoses Provider Diagnoses: Chest pain, rule out acute myocardial infarction - Provider Notifications Discussed Care Of Patient With: Aline Boles Time Discussed With Above Provider: 13:49 Instructed by Provider To: Other - Accepts pt for admission. Discharge - Sign-Out/Discharge Documenting (check all that apply): Discharge/Admit/Transfer - Admit - Discharge Plan Condition: Stable Disposition: ADMITTED TO [facility] Referrals: Stefano Muir MD [Primary Care Provider] - - Billing Disposition and Condition Condition: STABLE Disposition: [facility] The documentation as recorded by the Radha acevedo Rebecca accurately reflects the service I personally performed and the decisions made by me, Diego Jolley MD.
[2018-03-01 05:13] VITALS: BP 112/69
[2018-03-01 05:40] LABS: ABS Basophils 0.1 10^3/ul (0-0.2); ABS Eosinophils 0.2 10^3/ul (0-0.6); ABS Lymphocytes 1.7 10^3/ul (1.0-4.8); ABS Monocytes 0.5 10^3/ul (0-0.8); ABS Neutrophils 2.8 10^3/ul (1.5-7.7); ABS Nucleated RBC 0 10^3/ul; Eosinophil % 3.3 % (0-6); Hematocrit 47 % (42-52); Hemoglobin 15.8 g/dl (14.0-18.0); Lymphocyte % 32.7 % (25-47); Mean Corpuscular HGB Conc 34 g/dl (31-36); Mean Corpuscular Hemoglobin 28 pg (27-31); Mean Corpuscular Volume 81 fL (80-94); Mean Platelet Volume 8.2 um3 (7.4-10.4); Nucleated Red Blood Cells % 0.1; Platelet Count 114 10^3/ul (150-450); Red Blood Count 5.75 10^6/ul (4.0-5.4); Red Cell Distribution Width 15 % (10.5-15); White Blood Count 5.3 10^3/ul (3.5-10.8)
[2018-03-01 05:57] LABS: EGFR Non-African American 70.4 (>60)
[2018-03-01] MEDS: Heparin VIAL(*) 5000 UNITS/ML VIAL (FIVE THOUSAND) SUBCUT SCH (06:01)
[2018-03-01] MEDS ORDERED: Regadenoson* 0.4 MG/5 ML SYRINGE ONE (10:50)
--- NOTE | 2018-03-01 11:07 | RAD ---
Edited for charges. Indication: Chest pain. Myocardial perfusion scan was performed utilizing 1 day protocol. Rest myocardial perfusion was performed after intravenous injection of 10.99 mCi of technetium 99m tetrofosmin. Pharmacological stress was applied and 25.04 mCi of technetium 99 and tetrofosmin was injected for the stress portion of the study. There is motion artifact degrading the images. Photopenia in the inferior wall is noted. This appears to correct on the attenuated corrected images. Cardiomegaly is noted. The ejection fraction at stress is 56%. Evaluation of wall motion demonstrates no focal wall motion abnormality. IMPRESSION: Inferior wall photopenia likely due to attenuation and diaphragmatic artifact. Motion artifact limits evaluation. No definite fixed or reversible perfusion defects identified. Normal ejection fraction. ASSESSMENT: Low risk Based on imaging criteria from ACC/AHA 2002 Guideline Update for the Management of Patients With Chronic Stable Angina Table 23. Noninvasive Risk Stratification. - Stress-induced moderate perfusion defect with LV dilation or increased lung uptake (thallium-201) INTERMEDIATE-RISK (1%-3% ANNUAL MORTALITY RATE) - Mild/moderate resting left ventricular dysfunction (LVEF = 35% to 49%) - Stress-induced moderate perfusion defect without LV dilation or increased lung intake (thallium-201) LOW-RISK (LESS THAN 1% ANNUAL MORTALITY RATE) - Normal or small myocardial perfusion defect at rest or with stress MTDD
[2018-03-01] MEDS: Omeprazole CAP* 20 MG PO SCH (11:10)
[2018-03-01] MEDS: BuPROPion XL* 300 MG TAB.XL PO SCH (11:11)
[2018-03-01] MEDS: Aspirin 81 mg CHEW TAB* 81 MG TAB.CHEW PO SCH (11:11)
--- NOTE | 2018-03-03 00:40 | DS ---
CC: Dr. Stefano Muir * DISCHARGE SUMMARY: DATE OF ADMISSION: 02/27/18 DATE OF DISCHARGE: 03/01/18 PRIMARY CARE PROVIDER: Dr. Stefano Muir in [place], [place]. MY ATTENDING WHILE IN THE HOSPITAL: Dr. Emily Espinal.* (DICTATED BY MEHDI WESTBROOK) PRIMARY DISCHARGE DIAGNOSIS: Chest pain. SECONDARY DISCHARGE DIAGNOSES: 1. Chronic obstructive pulmonary disease. 2. History of congestive heart failure, unknown cause. 3. Bipolar disorder. 4. Posttraumatic stress disorder. 5. Depression. 6. Hypopituitarism. 7. Reflux. 8. Peptic ulcer disease. STUDIES DONE WHILE IN THE HOSPITAL: Electrocardiogram from 02/27/18 shows normal sinus rhythm, incomplete right bundle branch block, left axis deviation, left ventricular hypertrophy, early repolarization in V2, V3 and V4 with concave ST depression, possible left atrial enlargement, rate of 89, QTc of 432 , abnormal R-wave progression, no other abnormalities. Repeat EKG from shows no significant changes from previous exam Repeat EKG from 02/28/18 shows no significant changes from previous exam. Chest x-ray from 02/27/18 read as minimal linear atelectasis at the left lung base. Transthoracic echocardiogram from 02/27/18 read as [id number] concentric left ventricular hypertrophy, basal inferior wall hypokinesis may be variant normal, ejection fraction 50% to 55%, right ventricle mildly dilated. Right ventricular global systolic function is normal. There is trace to moderate mitral regurgitation, trace tricuspid regurgitation. Right ventricular systolic pressure estimated at 24 mmHg may be underestimated. There is mild dilatation of the ascending aorta, no prior echo to compare. Cardiac stress test from 02/28/18 shows nondiagnostic stress test due to low heart rate, arm and chest pressure unclear etiology and no evidence of ischemia at the low heart rate obtained, consider further evaluation with pharmacologic stress test if clinically indicated, consider vasospasm or noncardiac cause of chest pain including esophageal spasm. Nuclear medicine scan from 03/01/18 read as inferior wall photopenia likely due to degeneration and diaphragmatic artifact, motion artifact limits evaluation. No definite fixed or reversible perfusion defects identified. Normal ejection fraction. Assessment low risk. No focal wall motion abnormality. MEDICATIONS AT DISCHARGE: 1. Rosuvastatin 40 mg p.o. daily. 2. Omeprazole 20 mg p.o. b.i.d. 3. Bupropion 300 mg p.o. daily. 4. Testosterone 10 mL IM weekly. 5. Ziprasidone 120 mg p.o. daily. 6. Trazodone 300 mg p.o. at bedtime. 7. Tylenol 650 mg p.o. q.4 hours as needed. 8. Aspirin 81 mg p.o. daily. 9. Nitroglycerin 0.4 mg sublingually q.5 minutes as needed for anginal symptoms. HOSPITAL COURSE: This is a brief summary of the patient's presentation. For more details, please see the history and physical from Dr. Aline Boles on . In brief, the patient is a 47-year-old male with past medical history significant for the above, who presents with chest pain that had been going on for a week not dependent on exercise, lying flat or other provoking symptoms. He states it is in the left upper chest and radiating to his arm and neck. The patient had increased shortness of breath at baseline. For a long period, he has not had his nebulizer or control inhalers for his COPD as he is only visiting [place]. The patient was admitted to the hospital and had a transthoracic echocardiogram and cardiac stress test. Cardiac exercise and echocardiogram as above both of which were within normal limits. The patient on 02/28/18 evening had a recurrence of chest pain, which responded to nitroglycerin, but had no EKG changes associated with it during the episode. This pain radiated and also occurred in the patient's left forearm as it was going on. The patient has previously had an episode of fluid retention of unknown cause, which resolved with Lasix and has never recurred. The patient at that time, which was approximately 10 years ago, had a cardiac catheterization, reports of which were obtained and showed no coronary artery disease. The patient states that he was recently evaluated with an endoscopy for severe reflux symptoms, which felt different than this chest pain, which were more of a burning in the center of his chest, but that showed numerous areas of possible peptic ulcer disease and the patient was started on high dose PPI therapy. The patient will continue his evaluation with ENT soon after discharge. The patient had hemoglobin A1c, which showed prediabetes, which is consistent with findings from his primary care provider, as well as elevated morning glucoses. The patient had a normal LDL cholesterol of 59 and decreased HDL cholesterol at 31 with triglycerides of 196. The patient had a nuclear medicine chemical stress echocardiogram as above. The patient had no recurrences of his chest pain while in the hospital. The patient was anxious for discharge home. The patient had significant back pain while in the hospital , which was controlled with oxycodone, which the patient refused a prescription for at discharge as he normally controls his back pain with cannabis vaping. Of note, the patient also stated that he was due to be evicted from his apartment on 03/06/18, but did not wish for help from Social Work to help him obtain new housing if possible. PHYSICAL EXAMINATION ON DAY OF DISCHARGE: General: The patient is a 47-year- old male who appears stated age and sitting comfortably in the bed, in no acute distress. Vital Signs: At the time of discharge, temperature 98.5, pulse rate 69 , respiratory rate 18, oxygen saturation 93% on room air, blood pressure 112/ 69. HEENT: Head normocephalic, atraumatic. Sclerae anicteric. No conjunctival injection. Nasal mucosa moist. Oral mucosa moist. No pharyngeal erythema, discharge, or exudate. Neck: Supple, nontender. No lymphadenopathy. No carotid bruit. No JVD. Cardiac: Regular rate and rhythm. No clicks, murmurs, gallops, or rubs. Pulses 2+ in bilateral dorsalis pedis, posterior tibialis, and radial areas. No lower extremity calf tenderness or edema noted. Respiratory: Clear to auscultation bilaterally, somewhat diminished throughout. Abdomen: Soft, nontender, nondistended. Bowel sounds present and normoactive in all 4 quadrants. No hepatosplenomegaly. No abdominal bruits auscultated. Genitourinary: No suprapubic or CVA tenderness. Skin: Clean, dry, intact. No rash. Neuro: Cranial nerves II through XII intact. No focal deficits. Alert and oriented x3. Psychiatric: Pleasant and cooperative. LABORATORY DATA: On day of discharge; white blood cell count of 5.3, hemoglobin 15.8, hematocrit 47, platelet count 114. Sodium 137, potassium 3.9, chloride 104, carbon dioxide 24, anion gap 6, BUN 11, creatinine 1.11, glucose 121, calcium 9.0, magnesium 2.0. DISCHARGE PLAN: The patient will be discharged to home. The patient should follow up with his primary care provider within 1 week for general medical management, management of his prediabetes, management of his cardiac risk factors and continued aggressive primary prevention of [place]. The patient should follow up with ENT for continued evaluation of the cause of his reflux and peptic ulcer disease. The patient should also continue to follow up with Gastroenterology. The patient's chest pain though atypical in the absence of an obvious cardiac cause could be related to reflux symptoms. The patient for chest pain had nitroglycerin prescribed as this helped while in the hospital. The patient should take nitroglycerin and return to the hospital for evaluation if chest pain should recur. The patient should engage in activity as tolerated with getting moderate intensity exercise for weight loss. The patient should return to the hospital for alarming symptoms such as severely increased shortness of breath or chest pain. As above, the patient should resume on maintenance inhalers for his COPD to help with his baseline breathing status. The patient should be evaluated for the need of continuous oxygen and I would recommend him taking it if warranted. The patient should have a nebulizer or inhaler as needed for rescue symptoms. TIME SPENT: Approximately 60 minutes was spent on this discharge, 30 of which was spent [id number] with the patient obtaining history and physical and discussing treatment plan. MEHDI WESTBROOK [id number]/CPS #: [id number] MTDD
== END 2018-03-01 12:10 | disposition home or self-care (01) ==
LOC: ED 11:54 → MEDTELE 15:11
PROVIDERS: ADMIT Internal Medicine; ATTEND Student in an Organized Health Care Education/Training Program
DX: R07.9 Chest pain, unspecified (principal); J44.9 Chronic obstructive pulmonary disease, unspecified; I50.9 Heart failure, unspecified; F31.9 Bipolar disorder, unspecified; F43.10 Post-traumatic stress disorder, unspecified; E23.0 Hypopituitarism; K21.9 Gastro-esophageal reflux disease without esophagitis; K27.9 Peptic ulcer, site unspecified, unspecified as acute or chronic, without hemorrhage or perforation; Z79.899 Other long term (current) drug therapy; Z79.82 Long term (current) use of aspirin; Z87.891 Personal history of nicotine dependence; R94.31 Abnormal electrocardiogram [ECG] [EKG]; Z82.49 Family history of ischemic heart disease and other diseases of the circulatory system
CPT/HCPCS: 36415; 71045; 78452; 80048; 80053; 80061; 82550; 82553; 83036; 83605; 83735; 83880; 84443; 84484; 85025; 85610; 85730; 93005; 93017; 93306; 96372; 96374; 96376; 99284; A9270-GY; A9502; G0378; J1644; J2270; J2785

== ENCOUNTER 2019-07-13 15:17 | Emergency (ER) | payer BC, OTHER ==
--- OUTSIDE RECORDS SUMMARY | 2019-07-13 15:52 | XMS REPORT | Continuity of Care Document ---
:1970 External Reference #:[id number] Author Name Sourav Vasques MD Address [address] [facility], [address] [place] [address] Care Team Providers Name Role Phone Jorge Oliva NP - Nurse Practitioner Care Team Information Shingle Trimmer [phone] Problems Active Problems Provider Date Benign essential hypertension Kayla Lindsay, MSN, SYSTEMS COORDINATOR Onset: 2014 Mixed hyperlipidemia Kayla Lindsay, MSN, SYSTEMS COORDINATOR Onset: 09/30/2015 Social History Type Date Description Comments Sex Unknown Tobacco Use Start: Unknown End: Quit Unknown Smokeless Tobacco Never Used Smokeless Tobacco ETOH Use Denies alcohol use Tobacco Use Start: Unknown End: Patient is a former Quit Ten years ago Unknown smoker Recreational Drug Use Denies Drug Use Smoking Status Reviewed: 06/26/19 Patient is a former Quit Ten years ago smoker Allergies, Adverse Reactions, Alerts Active Allergies Reaction Severity Comments Date Penicillin 04/29/2019 Shellfish-Derived Products 04/29/2019 Inactive Allergies NKDA 04/29/2010 Medications Active Medications SIG Qnty Indications Ordering Date Provider Suprep Bowel Prep complete first part 354ml K59.00 Sourav Vasques, 2018 Kit of prep the evening MD before procedure and 17.5-3.13-1.6GM/177M second part at least L Solution 4 hours before your procedure time Simethicone take one tablet the 2units K59.00 Sourav Vasques, 06/26/2019 80mg night before and 1 MD Chewtabs tablet the morning at least 4 hours prior to procedure Dicyclomine HCL take two tablets 30caps Sourav Vasques, 06/26/2019 10mg when experiencing MD Capsules abdominal pain; twice a day as needed Omeprazole Take One Capsule By farnaz Meek, 04/21/2019 20mg Mouth Twice A Day MD Ricky Capsules DR Trazodone HCL 2-3 tab po at night Unknown 100mg Tablets Crestor 1 by mouth every day Unknown 40mg Tablets Testosterone 1 injections weekly Unknown 30mg/Act Solution Albuterol Sulfate nebulized every 4-6 Unknown hours as needed (2.5mg/3ML) 0.083% Nebulizer Clonidine HCL 1 by mouth twice a Unknown 0.2mg day Tablets Spiriva Respimat Inhale Two Puffs By Unknown Mouth Every Day 2.5mcg/Act Aerosol Sildenafil Citrate Take One Tablet By Unknown Mouth Every Day as 100mg Tablets Needed One Hour Prior To [place] Immunizations Description No Information Available Vital Signs Date Vital Result Comment 06/26/2019 4:28pm BP Systolic Sitting Left Arm 128 mmHg BP Diastolic Sitting Left Arm 80 mmHg Heart Rate 82 /min Respiratory Rate 24 /min Height 74 inches 6'2" Weight 253.00 lb BMI (Body Mass Index) 32.5 kg/m2 BSA (Body Surface Area) 2.40 m2 [place] body weight in kilograms 86 kg O2 % BldC Oximetry 99 % 06/26/2019 2:58pm BP Systolic Sitting Left Arm 140 mmHg BP Diastolic Sitting Left Arm 92 mmHg Body Temperature 97.9 F Heart Rate 86 /min Respiratory Rate 18 /min Height 74 inches 6'2" Weight 252.00 lb BMI (Body Mass Index) 32.4 kg/m2 BSA (Body Surface Area) 2.40 m2 [place] body weight in kilograms 86 kg O2 % BldC Oximetry 95 % Ra Results Description No Information Available Procedures Date Code Description Status 10/01/2002 06179207 Colonoscopy Completed Medical Devices Description No Information Available Encounters Type Date Location Provider Dx Diagnosis Office Visit 04/29/2019 Pulmonology Vamshi Sanchez MD J44.9 Chronic obstructive 2:00p pulmonary disease, unspecified J18.9 Pneumonia, unspecified organism Z01.818 Encounter for other preprocedural examination Assessments Date Code Description Provider 06/26/2019 K59.00 Constipation, unspecified Sourav Vasques MD 06/26/2019 R12 Heartburn Sourav Vasques MD 04/29/2019 J44.9 Chronic obstructive pulmonary disease, Vamshi Sanchez MD unspecified 04/29/2019 J18.9 Pneumonia, unspecified organism Vamshi Sanchez MD 04/29/2019 Z01.818 Encounter for other preprocedural examination Vamshi Sanchez MD 04/22/2019 J44.1 Chronic obstructive pulmonary disease with Roxann White M.D. (acute) exacerbation 04/22/2019 J18.1 Lobar pneumonia, unspecified organism Roxann White M.D. 04/22/2019 R06.03 Acute respiratory distress Roxann White M.D. 04/22/2019 Z87.891 Personal history of nicotine dependence Roxann White M.D. 04/21/2019 J44.1 Chronic obstructive pulmonary disease with Roxann White M.D. (acute) exacerbation 04/21/2019 J18.1 Lobar pneumonia, unspecified organism Roxann White M.D. 04/21/2019 R06.03 Acute respiratory distress Roxann White M.D. 04/21/2019 Z99.81 Dependence on supplemental oxygen Roxann White M.D. 04/20/2019 J44.1 Chronic obstructive pulmonary disease with Raymon Brown MD (acute) exacerbation 04/20/2019 J18.1 Lobar pneumonia, unspecified organism Raymon Brown MD 04/20/2019 J96.01 Acute respiratory failure with hypoxia Raymon Brown MD 04/20/2019 I10 Essential (primary) hypertension Raymon Brown MD Plan of Treatment 06/26/2019 - Henry Beaver MDAllNew Medication:Suprep Bowel Prep Kit 17.5-3.13-1.6 GM/177ML - complete first part of prep the evening before procedure and second part at least 4 hours before your procedure timeSimethicone 80 mg - take one tablet the night before and 1 tablet the morning at least 4 hours priorto procedureDicyclomine HCL 10 mg - take two tablets when experiencing abdominal pain; twice a day as needed -New Xrays:CT , Abdomen & Pelvis W Contrast, Ordered: 06/26/19New Orders:Colonoscopy, Ordered: 06/26/19Endoscopy, Ordered: 06/26/19 Functional Status Description No Information Available Mental Status Description No Information Available Referrals Description No Information Available
--- OUTSIDE RECORDS SUMMARY | 2019-07-13 15:52 | XMS REPORT | Continuity of Care Document ---
:1970 External Reference #:[id number] Author Name Henry Beaver MD Address [address] [place] [address] Care Team Providers Name Role Phone Jorge Oliva NP - Nurse Practitioner Care Team Information Hoop Maker Machine [phone] Problems Active Problems Provider Date Benign essential hypertension Kayla Lindsay, MSN, SURVEILLANCE SENSOR OFFICER Onset: 2014 Mixed hyperlipidemia Kayla Lindsay, MSN, SURVEILLANCE SENSOR OFFICER Onset: 09/30/2015 Social History Type Date Description Comments Sex Unknown Tobacco Use Start: Unknown End: Quit Unknown Smokeless Tobacco Never Used Smokeless Tobacco ETOH Use Denies alcohol use Tobacco Use Start: Unknown End: Patient is a former Quit Ten years ago Unknown smoker Recreational Drug Use Denies Drug Use Smoking Status Reviewed: 07/09/19 Patient is a former Quit Ten years ago smoker Allergies, Adverse Reactions, Alerts Active Allergies Reaction Severity Comments Date Penicillin 04/29/2019 Shellfish-Derived Products 04/29/2019 Inactive Allergies NKDA 04/29/2010 Medications Active Medications SIG Qnty Indications Ordering Date Provider Suprep Bowel Prep complete first part 354ml Sourav Vasques, 07/07/2019 Kit of prep the evening MD before procedure and 17.5-3.13-1.6GM/177M second part at least L Solution 4 hours before your procedure time Dicyclomine HCL Take two tablets 10caps Sourav Vasques, 06/27/2019 10mg when experiencing MD Capsules abdominal pain; twice a day as needed Suprep Bowel Prep complete first part 354ml K59.00 Sourav Vasques, 2018 Kit of prep the evening MD before procedure and 17.5-3.13-1.6GM/177M second part at least L Solution 4 hours before your procedure time Simethicone take one tablet the 2carie K59.00 Sourav Vasques, 06/26/2019 80mg night before and 1 [place] tablet the morning at least 4 hours prior to procedure Prednisone take 2 tablets daily 14tabs J44.9 Saranya, 06/26/2019 20mg x 3 days, then 1 MD Henry Tablets tablet daily x 3 days, then half a tablet daily x 3 days, then stop. Omeprazole Take One Capsule By farnaz Meek, [...] mouth twice a Unknown 0.2mg day Tablets Sildenafil Citrate Take One Tablet By Unknown Mouth Every Day as 100mg Tablets Needed One Hour Prior To [place] Naltrexone HCL 1 tab by mouth every Unknown 50mg day every morning Tablets History Medications Anoro Ellipta 1 puff by 30Henry Méndez, 06/26/2019 - mouth every MD 07/09/2019 62.5-25mcg/Inh Aerosol day Immunizations Description No Information Available Vital Signs Date Vital Result Comment 07/09/2019 2:42pm BP Systolic Sitting Right Arm 154 mmHg BP Diastolic Sitting Right Arm 92 mmHg Heart Rate 101 /min Respiratory Rate 18 /min Height 74 inches 6'2" Weight 248.00 lb BMI (Body Mass Index) 31.8 kg/m2 BSA (Body Surface Area) 2.38 m2 [place] body weight in kilograms 86 kg O2 % BldC Oximetry 96 % [place] 06/26/2019 4:28pm BP Systolic Sitting Left Arm 128 mmHg BP Diastolic Sitting Left Arm 80 mmHg Heart Rate 82 /min Respiratory Rate 24 /min Height 74 inches 6'2" Weight 253.00 lb BMI (Body Mass Index) 32.5 kg/m2 BSA (Body Surface Area) 2.40 m2 [place] body weight in kilograms 86 kg O2 % BldC Oximetry 99 % Results Description No Information Available Procedures Date Code Description Status 07/04/2019 69406 Spirometry Completed 10/01/2002 31875293 Colonoscopy Completed Medical Devices Description No Information Available Encounters Type Date Location Provider Dx Diagnosis Office Visit 06/26/2019 Pulmonology Bayron Beaver44.Javon Chronic obstructive 4:00p MD Henry pulmonary disease, unspecified Office Visit 06/26/2019 GI Sourav Vasques MD K59.00 Constipation, 3:00p unspecified R12 Heartburn Office Visit 04/29/2019 2:00p Pulmonology Vamshi Sanchez MD J44.9 Chronic obstructive pulmonary disease, unspecified J18.9 Pneumonia, unspecified organism Z01.818 Encounter for other preprocedural examination Assessments Date Code Description Provider 07/09/2019 J45.909 Reactive airway disease Henry Beaver MD 07/04/2019 J44.9 Chronic obstructive pulmonary disease, Henry Beaver MD unspecified 06/26/2019 J44.9 Chronic obstructive pulmonary disease, Henry Beaver MD unspecified 06/26/2019 K59.00 Constipation, unspecified Sourav Vasques MD 06/26/2019 R12 Heartburn Sourav Vasques MD 04/29/2019 J44.9 Chronic obstructive pulmonary disease, Vamshi Sanchez MD unspecified 04/29/2019 J18.9 Pneumonia, unspecified organism Vamshi Sanchez MD 04/29/2019 Z01.818 Encounter for other preprocedural Vamshi Sanchez MD examination 04/22/2019 J44.1 Chronic obstructive pulmonary disease Roxann White M.D. with (acute) exacerbation 04/22/2019 J18.1 Lobar pneumonia, unspecified organism Roxann White M.D. 04/22/2019 R06.03 Acute respiratory distress Roxann White M.D. 04/22/2019 Z87.891 Personal history of nicotine dependence Roxann White M.D. 04/21/2019 J44.1 Chronic obstructive pulmonary disease Roxann White M.D. with (acute) exacerbation 04/21/2019 J18.1 Lobar pneumonia, unspecified organism Roxann White M.D. 04/21/2019 R06.03 Acute respiratory distress Roxann White M.D. 04/21/2019 Z99.81 Dependence on supplemental oxygen Roxann White M.D. 04/20/2019 J44.1 Chronic obstructive pulmonary disease Raymon Brown MD with (acute) exacerbation 04/20/2019 J18.1 Lobar pneumonia, unspecified organism Raymon Brown MD 04/20/2019 J96.01 Acute respiratory failure with hypoxia Raymon Brown MD 04/20/2019 I10 Essential (primary) hypertension Raymon Brown MD Plan of Treatment 07/09/2019 - Henry Beaver MDJ45.909 Reactive airway diseaseComments: Reviewed PFT's personally with patient:FEV1 at 3.98 L which is 92% predictedNormal gas exchange and lung volumesDoes not require long acting medicationsDiscontinued Anoro and SpirivaUse albuterol PRN onlyFollow up PRNMaintain influenza and pneumococcal vaccination up to date Functional Status Description No Information Available Mental Status Description No Information Available Referrals Refer to Dr Reason for Referral Status Appt Date Brandan Calles MD Refer for anorectal manometry and defecography to Created Dr. Calles [address] [place] [id number] [phone]
--- OUTSIDE RECORDS SUMMARY | 2019-07-13 15:52 | XMS REPORT | Continuity of Care Document ---
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 Problems Active Problems Provider Date Benign essential hypertension Kayla Lindsay, MSN, PLATE MAKER ZINC Onset: 2014 Mixed hyperlipidemia Kayla Lindsay, MSN, PLATE MAKER ZINC Onset: 09/30/2015 Social History Type Date Description [...] of prep the evening MD before procedure 17.5-3.13-1.6GM/177M and second part at L Solution least 4 hours before your procedure time Simethicone take one tablet the 2units K59.00 Sourav Vasques, 06/26/2019 80mg night before and 1 MD Chewtabs tablet the morning at least 4 hours prior to procedure Anoro Ellipta 1 puff by mouth 30units Saranya, 06/26/2019 every day MD Henry 62.5-25mcg/Inh Aerosol Prednisone take 2 tablets 14tabs J44.9 Cheng-Jann, 06/26/2019 20mg daily x 3 days, MD Henry Tablets then 1 tablet daily x 3 days, then half a tablet daily x 3 days, then stop. Omeprazole Take One Capsule By farnaz Meek, 04/21/2019 20mg Mouth Twice A Day MD Ricky Capsules DR Trazodone HCL 2-3 tab po at night Unknown 100mg Tablets Crestor 1 by mouth every Unknown 40mg Tablets day Testosterone 1 injections weekly Unknown 30mg/Act Solution Albuterol Sulfate nebulized every 4-6 Unknown hours as needed (2.5mg/3ML) 0.083% Nebulizer Clonidine HCL 1 by mouth twice a Unknown 0.2mg day Tablets Spiriva Respimat Inhale Two Puffs By Unknown Mouth Every Day 2.5mcg/Act Aerosol Sildenafil Citrate Take One Tablet By Unknown Mouth Every Day as 100mg Tablets Needed One Hour Prior To [place] Immunizations Description No Information Available Vital Signs Date Vital Result Comment 06/26/2019 4:28pm BP Systolic Sitting Left Arm 128 mmHg BP Diastolic Sitting Left Arm 80 mmHg Heart Rate 82 /min Respiratory Rate 24 /min Height 74 inches 6'2" Weight 253.00 lb BMI (Body Mass Index) 32.5 kg/m2 BSA (Body Surface Area) 2.40 m2 [place] body weight in kilograms 86 kg O2 % BldC Oximetry 99 % 06/26/2019 2:58pm BP Systolic Sitting Left Arm 140 mmHg BP Diastolic Sitting Left Arm 92 mmHg Body Temperature 97.9 F Heart Rate 86 /min Respiratory Rate 18 /min Height 74 inches 6'2" Weight 252.00 lb BMI (Body Mass Index) 32.4 kg/m2 BSA (Body Surface Area) 2.40 m2 [place] body weight in kilograms 86 kg O2 % BldC Oximetry 95 % Ra Results Description No Information Available Procedures Date Code Description Status 10/01/2002 22574394 Colonoscopy Completed Medical Devices Description No Information Available Encounters Type Date Location Provider Dx Diagnosis Office Visit 04/29/2019 Pulmonology Vamshi Sanchez MD J44.9 Chronic obstructive 2:00p pulmonary disease, unspecified J18.9 Pneumonia, unspecified organism Z01.818 Encounter for other preprocedural examination Assessments Date Code Description Provider 06/26/2019 J44.9 Chronic obstructive pulmonary disease, Henry [...] hypertension Raymon Brown MD Plan of Treatment Future Appointment(s):07/09/2019 2:30 pm - Henry Beaver MD at [facility]/26/2019 - Henry Beaver MDJ44.9 Chronic obstructive pulmonary disease, unspecifiedNew Medication:Prednisone 20 mg - take 2 tablets daily x 3 days, then 1 tablet daily x 3 days, then half a tablet daily x 3 days , then stop.New Orders:6 Minute Walk Test, Ordered: 06/26/19PFT Without Bronchodilator, Ordered: 06/26/19AllComments:Stop SpirivaUse nebulized albuterol every 8 hours scheduled for 1 weekTake prednisone taperUse AnoroINH dailyReviewed instructions on how to perform inhalatory maneuvers, gave sample and supervised first dose.Follow up in 1 week with PFT + 6MWTReviewed CXR today , final interpretation by radiologist pending. Functional Status Description No Information Available Mental Status Description No Information Available Referrals Description No Information Available
--- OUTSIDE RECORDS SUMMARY | 2019-07-13 15:52 | XMS REPORT | Continuity of Care Document ---
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 Problems Active Problems Provider Date Benign essential hypertension Kayla Lindsay, MSN, LOG CHECK SCALER Onset: 2014 Mixed hyperlipidemia Kayla Lindsay, MSN, LOG CHECK SCALER Onset: 09/30/2015 Social History Type Date Description [...] Medications SIG Qnty Indications Ordering Date Provider Dicyclomine HCL Take two tablets 10caps Sourav [...] Aerosol Prednisone take 2 tablets 14tabs J44.9 Saranya, 06/26/2019 20mg daily x 3 days, MD [...] 100mg Tablets Needed One Hour Prior To [place] Immunizations Description No Information Available Vital Signs Date Vital Result Comment 06/26/2019 4:28pm BP Systolic Sitting Left Arm 128 mmHg BP Diastolic Sitting Left Arm 80 mmHg Heart Rate 82 /min Respiratory Rate 24 /min Height 74 inches 6'2" Weight 253.00 lb BMI (Body Mass Index) 32.5 kg/m2 BSA (Body Surface Area) 2.40 m2 [place] body weight in kilograms 86 kg O2 % BldC Oximetry 99 % 06/26/2019 2:58pm BP Systolic Sitting Left Arm 140 mmHg BP Diastolic Sitting Left Arm 92 mmHg Body Temperature 97.9 F Heart Rate 86 /min Respiratory Rate 18 /min Height 74 inches 6'2" Weight 252.00 lb BMI (Body Mass Index) 32.4 kg/m2 BSA (Body Surface Area) 2.40 m2 [place] body weight in kilograms 86 kg O2 % BldC Oximetry 95 % Ra Results Description No Information Available Procedures Date Code Description Status 10/01/2002 [id number] Colonoscopy Completed Medical Devices Description No Information Available Encounters Type Date Location Provider Dx Diagnosis Office Visit 06/26/2019 Pulmonology Saranya J44.Javon Chronic obstructive 4:00p MD Henry pulmonary disease, [...] 2:30 pm - Henry Beaver MD at [facility]/26/2019 - Henry Beaver MDJ44.9 Chronic obstructive pulmonary disease, unspecifiedNew Medication:Prednisone 20 mg - take 2 tablets daily x 3 days, then 1 tablet daily x 3 days, then half a tablet daily x 3 days , then stop.New Orders:PFT Without Bronchodilator, Scheduled: AllComments:Stop SpirivaUse nebulized albuterol every 8 hours scheduled for 1 weekTake prednisone taperUse AnoroINH dailyReviewed instructions on how to perform inhalatory maneuvers, gave sample and supervised first dose.Follow up in 1 week with PFT + 6MWTReviewed CXR today, final interpretation by radiologist pending. Functional Status Description No Information Available Mental Status Description No Information Available Referrals Description No Information Available
[2019-07-13 15:59] VITALS: BP 124/75
--- NOTE | 2019-07-13 16:08 | UC ---
Throat Pain/Nasal Sandip HPI - HPI Summary HPI Summary: C/O sore throat, nasal congestion and bilateral maxillary and frontal sinus pain with fatigue and chills. No cough - History of Current Complaint Chief Complaint: UCGeneralIllness Stated Complaint: SORE THROAT/SINUS PRESSURE Hx Obtained From: Patient Onset/Duration: Sudden Onset, Lasting Days - 3, Worse Since - onset Severity: Moderate Pain Intensity: 6 Cough: None Associated Signs & Symptoms: Positive: Dysphagia, Sinus Discomfort, Nasal Discharge Related History: Seasonal Allergies, Other (Noted In Comments) - H/O sinus surgery and frequent sinus infections. - Allergies/Home Medications Allergies/Adverse Reactions: Allergies Allergy/AdvReac Type Severity Reaction Status Date / Time No Known Allergies Allergy Verified 07/13/19 15:54 PMH/Surg Hx/FS Hx/Imm Hx Endocrine History: Dyslipidemia Cardiovascular History: Hypertension GI/ History: Gastroesophageal Reflux - Surgical History Surgical History: Yes Surgery Procedure, Year, and Place: SINUS SURGERY, LAMINECTOMY 2007 - Family History Known Family History: Positive: Cardiac Disease - [place] (father, mother, grandparents), Diabetes - (father, mother, grandparents) Negative: Hypertension - Social History Occupation: Employed Full-time Lives: Alone Alcohol Use: None Substance Use Type: None Substance Use Comment - Amount & Last Used: medical,has card,for PTSD and back pain Smoking Status (MU): Former Smoker Type: Cigarettes Have You Smoked in the Last Year: No Review of Systems All Other Systems Reviewed And Are Negative: Yes Constitutional: Positive: Chills, Fatigue ENT: Positive: Sore Throat, Nasal Discharge, Sinus Pain/Tenderness Physical Exam Triage Information Reviewed: Yes Appearance: Well-Nourished, Ill-Appearing - mild, Pain Distress - mild Vital Signs: Initial Vital Signs Temp 98.9 F 07/13/19 15:56 Pulse 88 07/13/19 15:56 Resp 16 07/13/19 15:56 BP 124/75 07/13/19 15:56 Pulse Ox 98 07/13/19 15:56 Vital Signs Reviewed: Yes Eyes: Positive: Conjunctiva Inflamed - OU ENT: Positive: Pharyngeal erythema - on the soft palate with no petechia, Nasal congestion, TMs normal Neck exam: Normal Respiratory Exam: Normal Cardiovascular Exam: Normal Musculoskeletal Exam: Normal Neurological Exam: Normal Psychological Exam: Normal Skin Exam: Normal Throat Pain/Nasal Course/Dx - Differential Dx/Diagnosis Differential Diagnosis/HQI/PQRI: Pharyngitis, Sinusitis, Tonsillitis, URI Provider Diagnosis: Allergic rhinitis, Acute bacterial sinusitis Discharge ED - Sign-Out/Discharge Documenting (check all that apply): Patient Departure All imaging exams completed and their final reports reviewed: No Studies - Discharge Plan Condition: Stable Disposition: HOME Prescriptions: DOXYcycline CAP(*) [DOXYcycline 100MG CAP(*)] 100 mg PO BID #20 cap Patient Education Materials: Sinusitis (ED), Allergies (ED), Doxycycline (By mouth) Referrals: Stefano Muir MD [Primary Care Provider] - Additional Instructions: NEILMED SINUS RINSE: CHECK OUT AT [facility] Saline nasal wash helps with mucous, allergies and congestion. It can be used up to twice a day or only as needed. Use lukewarm tap water. It does not have to be sterilized or distilled water. Do 1/3 on each side and snort out of both nostrils. Repeat the process with 1/6 of the bottle on each side with snorting in between to finish the solution in the bottle - Billing Disposition and Condition Condition: STABLE Disposition: Home
== END 2019-07-13 16:22 | disposition home or self-care (01) ==
LOC: UCCORT 15:17
DX: J01.90 Acute sinusitis, unspecified (principal); B96.89 Other specified bacterial agents as the cause of diseases classified elsewhere; J30.9 Allergic rhinitis, unspecified; I10 Essential (primary) hypertension; R13.10 Dysphagia, unspecified; Z87.891 Personal history of nicotine dependence
CPT/HCPCS: 99212; G0463

== ENCOUNTER 2019-08-16 14:06 | Emergency (ER) | payer BC ==
[2019-08-16 14:38] VITALS: BP 132/78
--- NOTE | 2019-08-16 14:51 | UC ---
Respiratory Complaint HPI - HPI Summary HPI Summary: Pt presents with c/o nasal congestion, sinus pressure and tenderness, cough, sob , wheezing X 8 days. - History of Current Complaint Chief Complaint: UCRespiratory Stated Complaint: COUGH Time Seen by Provider: 08/16/19 14:44 Hx Obtained From: Patient Onset/Duration: Gradual Onset, Lasting Days, Still Present, Worse Since - osnet Timing: Constant Severity Initially: Mild Severity Currently: Moderate Pain Intensity: 0 Character: Cough: Nonproductive Aggravating Factors: Exertion, Deep Breaths, Recumbent Position Alleviating Factors: Nothing Associated Signs And Symptoms: Positive: Wheezing, URI, Nasal Congestion, Sinus Discomfort - Risk Factors Pulmonary Embolism Risk Factors: Smoking Cardiac Risk Factors: Hypertension, Smoking, Diabetes, Elevated Lipids Pseudomonas Risk Factors: Chronic Lung Disease Tuberculosis Risk Factors: Diabetes, Smoking - Allergies/Home Medications Allergies/Adverse Reactions: Allergies Allergy/AdvReac Type Severity Reaction Status Date / Time Penicillins Allergy Hives Verified 08/16/19 14:39 Home Medications: Home Medications ARIPiprazole TAB* [Abilify 2 MG TAB*] 2 mg PO BEDTIME 08/16/19 [History Confirmed 08/16/19] cloNIDine TAB* [Catapres 0.1 MG TAB*] 0.1 mg PO BID 08/16/19 [History Confirmed 08/16/19] glipiZIDE TAB* [Glucotrol TAB*] 2.5 mg PO DAILY 08/16/19 [History Confirmed ] metFORMIN* [Glucophage 1000 MG TAB *] 1,000 mg PO BID 08/16/19 [History Confirmed 08/16/19] PMH/Surg Hx/FS Hx/Imm Hx Previously Healthy: Yes Endocrine History: Diabetes, Dyslipidemia Cardiovascular History: Cardiac Disease, Hypertension - Surgical History Surgical History: Yes Surgery Procedure, Year, and Place: SINUS SURGERY, LAMINECTOMY 2007 - Family History Known Family History: Positive: Cardiac Disease - [place] (father, mother, grandparents), Diabetes - (father, mother, grandparents) Negative: Hypertension - Social History Occupation: Employed Full-time Lives: With Family Alcohol Use: None Substance Use Type: None Substance Use Comment - Amount & Last Used: medical,has card,for PTSD and back pain Smoking Status (MU): Former Smoker Type: Cigarettes Have You Smoked in the Last Year: No - Immunization History Vaccination Up to Date: Yes Review of Systems All Other Systems Reviewed And Are Negative: Yes Constitutional: Positive: Fever, Chills, Fatigue Skin: Positive: Negative Eyes: Positive: Negative ENT: Positive: Sinus Congestion, Sinus Pain/Tenderness Respiratory: Positive: Shortness Of Breath, Cough, Other - wheezing Cardiovascular: Positive: Negative Gastrointestinal: Positive: Negative Genitourinary: Positive: Negative Motor: Positive: Negative Neurovascular: Positive: Negative Musculoskeletal: Positive: Negative Neurological: Positive: Negative Psychological: Positive: Negative Is Patient Immunocompromised?: No Physical Exam Triage Information Reviewed: Yes Appearance: Ill-Appearing Vital Signs: Initial Vital Signs Temp 99.4 F 08/16/19 14:35 Pulse 90 08/16/19 14:35 Resp 16 08/16/19 14:35 BP 132/78 08/16/19 14:35 Pulse Ox 97 08/16/19 14:35 Vital Signs Reviewed: Yes ENT: Positive: Nasal congestion, Sinus tenderness Dental Exam: Normal Neck exam: Normal Respiratory: Positive: Wheezing Cardiovascular Exam: Normal Musculoskeletal Exam: Normal Neurological Exam: Normal Psychological Exam: Normal Skin Exam: Normal Respiratory Course/Dx - Differential Dx/Diagnosis Differential Diagnosis/HQI/PQRI: Bronchitis, Sinusitis Provider Diagnosis: Sinusitis Discharge ED - Sign-Out/Discharge Documenting (check all that apply): Patient Departure All imaging exams completed and their final reports reviewed: No Studies - Discharge Plan Condition: Stable Disposition: HOME Prescriptions: Albuterol HFA INHALER* [Ventolin HFA Inhaler*] 2 puff INH Q4H PRN #1 mdi PRN Reason: Sob/Wheezing Benzonatate CAP* [Tessalon 100 MG CAP*] 100 mg PO Q8H PRN #30 cap PRN Reason: Cough DOXYcycline CAP(*) [DOXYcycline 100MG CAP(*)] 100 mg PO Q12H #20 cap Patient Education Materials: Sinusitis (ED), Wheezing (ED) Referrals: [facility] [place] [facility]ERR[facility] [Outside] No Primary Care Phys,NOPCP [Primary Care Provider] - - Billing Disposition and Condition Condition: STABLE Disposition: Home
== END 2019-08-16 15:01 | disposition home or self-care (01) ==
LOC: UCCORT 14:06
DX: J32.9 Chronic sinusitis, unspecified (principal); I10 Essential (primary) hypertension; E11.9 Type 2 diabetes mellitus without complications; Z79.84 Long term (current) use of oral hypoglycemic drugs; Z79.899 Other long term (current) drug therapy; Z87.891 Personal history of nicotine dependence; Z88.0 Allergy status to penicillin
CPT/HCPCS: 99212; G0463

== ENCOUNTER 2019-09-28 11:09 | Emergency (ER) | payer BC ==
[2019-09-28 12:05] VITALS: BP 114/70
--- NOTE | 2019-09-28 13:33 | UC ---
Throat Pain/Nasal Sandip HPI - HPI Summary HPI Summary: Head congestion with sinus pressure and postnasal drainage over the past 2 weeks. Productive cough with clear sputum with no fevers. He also complains of bilateral sciatica for which he has had prednisone in the past. He does not have a primary care physician however the physician referral service card was given to him by the front desk clerk. He denies any saddle anesthesia. He states he always has numbness in his feet and legs which is chronic for him. The patient states that he occasionally will get the sciatica when he is not working out regularly and he has not been doing that over the past year. - History of Current Complaint Chief Complaint: UCGeneralIllness Stated Complaint: CONGESTION,COUGH,SOB Time Seen by Provider: 09/28/19 13:01 Hx Obtained From: Patient Onset/Duration: Gradual Onset Pain Intensity: 6 Cough: Productive - Productive cough of clear sputum. Associated Signs & Symptoms: Positive: Sinus Discomfort, Nasal Discharge - Allergies/Home Medications Allergies/Adverse Reactions: Allergies Allergy/AdvReac Type Severity Reaction Status Date / Time Penicillins Allergy Hives Verified 09/28/19 11:56 shellfish derived Allergy Swelling Verified 09/28/19 11:56 Of Face,Lips,& Throat Home Medications: Home Medications Tiotropium Carlin [Spiriva Respimat] 2.5 mcg DAILY PRN 09/28/19 [History Confirmed 09/28/19] PMH/Surg Hx/FS Hx/Imm Hx Previously Healthy: Yes Endocrine History: Diabetes Cardiovascular History: Hypertension Respiratory History: COPD - Surgical History Surgical History: Yes Surgery Procedure, Year, and Place: SINUS SURGERY, LAMINECTOMY 2007 - Family History Known Family History: Positive: Cardiac Disease - [place] (father, mother, grandparents), Diabetes - (father, mother, grandparents) Negative: Hypertension - Social History Alcohol Use: None Substance Use Type: None Substance Use Comment - Amount & Last Used: medical,has card,for PTSD and back pain Smoking Status (MU): Never Smoked Tobacco Type: Cigarettes Have You Smoked in the Last Year: No - Immunization History Vaccination Up to Date: Yes Review of Systems All Other Systems Reviewed And Are Negative: Yes ENT: Positive: Nasal Discharge, Sinus Congestion, Sinus Pain/Tenderness - Sinus tenderness and pressure over the past 2 weeks. Respiratory: Positive: Cough - Productive cough of clear sputum. Musculoskeletal: Positive: Other: - Patient states he has had a flare up of his sciatica for which he has been given prednisone in the past. Is Patient Immunocompromised?: No Physical Exam Triage Information Reviewed: Yes Appearance: Well-Appearing, No Pain Distress, Well-Nourished Vital Signs: Initial Vital Signs Temp 98.4 F 09/28/19 11:58 Pulse 64 09/28/19 11:58 Resp 18 09/28/19 11:58 BP 114/70 09/28/19 11:58 Pulse Ox 97 09/28/19 11:58 Vital Signs Reviewed: Yes Eyes: Positive: Conjunctiva Clear ENT: Positive: Pharynx normal - Purulent yellow postnasal drainage., Nasal congestion - Purulent yellow nasal coryza., TMs normal, Sinus tenderness - Tender over the maxillary sinuses bilaterally., Uvula midline Neck: Positive: Supple, Nontender, No Lymphadenopathy Respiratory: Positive: No respiratory distress, No accessory muscle use, Wheezing - Mild wheezing with forced expiration. Cardiovascular: Positive: RRR, No Murmur, Pulses Normal, Brisk Capillary Refill Musculoskeletal: Positive: Strength Intact, ROM Intact, Other: - Good peripheral pulses neuro sensation and capillary refill. Neurological Exam: Normal Psychological Exam: Normal Skin Exam: Normal Throat Pain/Nasal Course/Dx - Course Course Of Treatment: Patient is comfortable here. I'm going to treat him for sinusitis as well as bronchitis. He was encouraged to establish care with primary care provider. - Differential Dx/Diagnosis Provider Diagnosis: Sinusitis, Bronchitis, Sciatica Discharge ED - Sign-Out/Discharge Documenting (check all that apply): Patient Departure All imaging exams completed and their final reports reviewed: No Studies - Discharge Plan Condition: Fair Disposition: HOME Prescriptions: DOXYcycline CAP(*) [DOXYcycline 100MG CAP(*)] 100 mg PO BID 10 Days #20 cap predniSONE TAB* [Deltasone 10 MG TAB*] 10 mg PO DAILY 12 Days #30 tab Patient Education Materials: Sinusitis (ED), Sciatica (ED) Referrals: [facility] [place] [facility] [Outside] No Primary Care Phys,NOPCP [Primary Care Provider] - Additional Instructions: Increase fluids, no antacids, multivitamins or dairy products 2 hours before you take the doxycycline and 2 hours after however take it with food. Take the prednisone with food. Definite follow-up by phone with the physician referral service to initiate primary care. - Billing Disposition and Condition Condition: FAIR Disposition: Home
== END 2019-09-28 13:46 | disposition home or self-care (01) ==
LOC: UCCORT 11:09
DX: J44.9 Chronic obstructive pulmonary disease, unspecified (principal); J32.0 Chronic maxillary sinusitis; M54.32 Sciatica, left side; M54.31 Sciatica, right side; E11.9 Type 2 diabetes mellitus without complications; I10 Essential (primary) hypertension; Z88.0 Allergy status to penicillin; Z91.013 Allergy to seafood
CPT/HCPCS: 99212; G0463

== ENCOUNTER 2019-10-20 12:33 | Emergency (ER) | payer BC ==
[2019-10-20] MEDS ORDERED: LORazepam TAB(*) 1 MG PO ONE (12:44)
--- NOTE | 2019-10-20 12:46 | ED ---
Respiratory - HPI Summary HPI Summary: 49 year old male presents to the ED with a chief complaint of shortness of breath starting in August, exacerbated last night. Patient has had a history of bronchitis since August 2019, for which 2 full courses of doxycycline has not cured. Per EMS, patient was wheezing and was unable to catch his breath. Duoneb treatment improved his breathing. Patient reports chest pain, cough, and difficulty sleeping at night due to his shortness of breath. Denies fever and chills. PMHx of DM, HLD, COPD, CAD, depression, anxiety, and low testosterone. 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 - History of Current Complaint Stated Complaint: SOB PER EMS Hx Obtained From: Patient, EMS Onset/Duration: Gradual Onset, Lasting Weeks, Worse Since - Last night Timing: Constant Initial Severity: Mild Current Severity: Severe Character: Wheezing, Cough (Productive), Dyspnea at Rest Alleviating Factor(s): Neb. Bronchodilators (Frequency Of Use) - Administered by EMS Associated Signs and Symptoms: SOB, Chest Pain, Wheezing - Allergy/Home Medications Allergies/Adverse Reactions: Allergies Allergy/AdvReac Type Severity Reaction Status Date / Time Penicillins Allergy Hives Verified 09/28/19 11:56 shellfish derived Allergy Swelling Verified 09/28/19 11:56 Of Face,Lips,& Throat Home Medications: Home Medications Naltrexone TAB* 1 mg PO DAILY 10/20/19 [History Confirmed 10/20/19] clonazePAM TAB(*) [KlonoPIN TAB(*)] 0.5 mg PO BID 10/20/19 [History Confirmed ] PMH/Surg Hx/FS Hx/Imm Hx Endocrine/Hematology History: Reports: Hx Diabetes Cardiovascular History: Reports: Hx Angina, Hx Congestive Heart Failure, Hx Coronary Artery Disease - CHF, Hx Hypercholesterolemia, Hx Hypertension Denies: Hx Myocardial Infarction, Hx Valvular Heart Disease Respiratory History: Reports: Hx Chronic Obstructive Pulmonary Disease (COPD), Hx Pneumonia Denies: Hx Asthma GI History: Reports: Hx Gastroesophageal Reflux Disease Musculoskeletal History: Reports: Hx Back Problems Sensory History: Denies: Hx Contacts or Glasses, Hx Hearing Aid Opthamlomology History: Denies: Hx Contacts or Glasses Psychiatric History: Reports: Hx Anxiety, Hx Depression, Hx Post Traumatic Stress Disorder, Hx Bipolar Disorder - Surgical History Surgery Procedure, Year, and Place: SINUS SURGERY, LAMINECTOMY 2007 - Family History Known Family History: Positive: Cardiac Disease - [place] (father, mother, grandparents), Diabetes - (father, mother, grandparents) Negative: Hypertension - Social History Alcohol Use: None Hx Substance Use: No Substance Use Type: Reports: None Substance Use Comment - Amount & Last Used: medical,has card,for PTSD and back pain Hx Tobacco Use: Yes Smoking Status (MU): Never Smoked Tobacco Type: Cigarettes Have You Smoked in the Last Year: No Review of Systems Negative: Fever, Chills Positive: Chest Pain Positive: Shortness Of Breath, Cough All Other Systems Reviewed And Are Negative: Yes Physical Exam - Summary Physical Exam Summary: VITAL SIGNS: Reviewed. GENERAL: Patient is a well-developed and nourished male who is lying comfortable in the stretcher. Patient is not in any acute respiratory distress. HEAD AND FACE: No signs of trauma. No ecchymosis, hematomas or skull depressions. No sinus tenderness. EYES: PERRLA, EOMI x 2, No injected conjunctiva, no nystagmus. EARS: Hearing grossly intact. Ear canals and tympanic membranes are within normal limits. MOUTH: Oropharynx within normal limits. NECK: Supple, trachea is midline, no adenopathy, no JVD, no carotid bruit, no c- spine tenderness, neck with full ROM. CHEST: Symmetric, no tenderness at palpation. Receiving DuoNeb from EMS. LUNGS: Clear to auscultation bilaterally. No wheezing or crackles. CVS: Regular rate and rhythm, S1 and S2 present, no murmurs or gallops appreciated. ABDOMEN: Soft, non-tender. No signs of distention. No rebound, no guarding, and no masses palpated. Bowel sounds are normal. EXTREMITIES: FROM in all major joints, no edema, no cyanosis or clubbing. NEURO: Alert and oriented x 3. No acute neurological deficits. Speech is normal and follows commands. SKIN: Dry and warm. Triage Information Reviewed: Yes Vital Signs Reviewed: Yes Procedures - Sedation Patient Received Moderate/Deep Sedation with Procedure: No Diagnostics - Laboratory Result Diagrams: 10/20/19 12:53 10/20/19 12:53 Lab Statement: Any lab studies that have been ordered have been reviewed, and results considered in the medical decision making process. - Radiology CXR Radiology Interpretation Completed By: Radiologist Summary of Radiographic Findings: No active cardiopulmonary disease. An ED physician has reviewed this report. - EKG 1252 Cardiac Rate: NL - 93 bpm EKG Rhythm: Sinus Rhythm ST Segment: Normal Ectopy: None Summary of EKG Findings: EKG at 1252 is NSR at [address] elevations. Normal axis. An ED physician has reviewed and interpreted this EKG. Disposition - Course Assessment/Plan: 49 year old male presents to the ED with a chief complaint of shortness of breath starting in August, exacerbated last night. Patient has had a history of bronchitis since August 2019, for which 2 full courses of doxycycline has not cured. Per EMS, patient was wheezing and was unable to catch his breath. Duoneb treatment improved his breathing. Patient reports cough and difficulty sleeping at night due to his shortness of breath. Denies fever and chills. PMHx of DM, HLD, COPD, CAD, depression, anxiety, and low testosterone. History of ETOH addiction (29 years sober), and smoking tobacco ( 3ppd, quit 6 years ago). Blood test results without any significant abnormality except for creatinine 1.18. EKG is a normal sinus rhythm without any ST elevations. Chest x-ray impression: No active cardiopulmonary disease. In the ED course the patient was given Ativan for anxiety and the symptoms have subsided. Patient reports that all symptoms have resolved. Patient Hear score: 1 therefore, low suspicion for CAD. Patient is not hypoxic or tachycardic. Wells criteria 0 . Therefore, no suspicion for PE. Patient has no abdominal bruit thus no suspicion for AAA. Patients pain does not radiate to the back and pain has resolved thus low suspicion for aortic dissection. I discussed all the findings and test results with the patient. Patient was instructed to return to the emergency room immediately if any of the symptoms return or worsen. Patient understands and agrees. Plan of care was discussed with the patient and patient understands and agrees. All questions were answered at patient satisfaction. There were no further complaints or concerns. PE before discharge: CVS: S1 and S2 present. No murmurs appreciated. Abdominal exam before discharge: Soft, non-tender. No signs of distention. No rebound no guarding, and no masses palpated. Bowel sounds are normal. Patient is alert and oriented x 3. Patient is hemodynamically stable. - Differential Dx - Cardiopulmonary Differential Diagnoses - Cardiopulmonary: Asthma, CAD, Lower Resp Infection, Pulmonary Edema - Diagnoses Provider Diagnoses: Chest pain, Anxiety Discharge ED - Sign-Out/Discharge Documenting (check all that apply): Patient Departure - discharge home - Discharge Plan Condition: Stable Disposition: HOME Patient Education Materials: Chest Pain (ED), Anxiety (ED) Referrals: [facility] [Outside] Additional Instructions: Follow up with [facility] in 2-3 days. Return to the Emergency Department if you experience new or worsened symptoms. - Billing Disposition and Condition Condition: STABLE Disposition: Home - Attestation Statements Document Initiated by Scribe: Yes Documenting Scribe: Gopal Lara Provider For Whom Janene is Documenting (Include Credential): Diego Jolley MD Scribe Attestation: Gopal Presley scribed for Diego Jolley MD on 10/20/19 at 2119. Scribe Documentation Reviewed: Yes Provider Attestation: The documentation as recorded by the alanisibGopal blackwell accurately reflects the service I personally performed and the decisions made by Diego bonilla MD Status of Scribe Document: Viewed
[2019-10-20 13:04] LABS: ABS Eosinophils 0.3 10^3/ul (0-0.6); ABS Lymphocytes 1.8 10^3/ul (1.0-4.8); ABS Monocytes 0.5 10^3/ul (0-0.8); ABS Neutrophils 1.7 10^3/ul (1.5-7.7); Eosinophil % 6.6 %; Hematocrit 46 % (42-52); Hemoglobin 15.3 g/dL (14.0-18.0); Lymphocyte % 41.5 %; Mean Corpuscular HGB Conc 33 g/dL (31-36); Mean Corpuscular Hemoglobin 27 pg (27-31); Mean Corpuscular Volume 82 fL (80-94); Mean Platelet Volume 8.9 fL (7.4-10.4); Platelet Count 127 10^3/uL (150-450); Red Blood Count 5.65 10^6 /uL (4.18-5.48); Red Cell Distribution Width 16 % (10-15); White Blood Count 4.4 10^3/uL (3.5-10.8)
[2019-10-20 13:21] LABS: Albumin 4.4 g/dL (3.2-5.2); Albumin/Globulin Ratio 1.8 (1-3); BUN/Creatinine Ratio 6.8 (8-20); C Reactive Protein 5.48 mg/L (<8.01); Calcium 9.5 mg/dL (8.6-10.3); EGFR African American 78.7 (>60); EGFR Non-African American 65.1 (>60); Globulin 2.5 g/dL (2-4); Potassium 4.2 mmol/L (3.5-5.0); Total Bilirubin 0.4 mg/dL (0.2-1.0); Total Protein 6.9 g/dL (6.4-8.9)
[2019-10-20 13:26] LABS: CKMB ng/mL 2.2 ng/mL (0.6-6.3)
[2019-10-20 13:49] VITALS: BP 101/69
--- OUTSIDE RECORDS SUMMARY | 2019-10-20 14:38 | XMS REPORT | Continuity of Care Document ---
:1970 External Reference #:[id number] Author Name Sourav Vasques MD Address [address], [address] [place] [address] Care Team Providers Name Role Phone Jorge Oliva NP - Nurse Practitioner Care Team Information Acidizer Helper [phone] Problems Active Problems Provider Date Benign essential hypertension Kayla Lindsay, MSN, [employer]ER Onset: 2014 Mixed hyperlipidemia Kayla Lindsay, MSN, [employer]ER Onset: 09/30/2015 Social History Type Date Description Comments Sex Unknown Tobacco Use Start: Unknown End: Quit Unknown Smokeless Tobacco Never Used Smokeless Tobacco ETOH Use Denies alcohol use Tobacco Use Start: Unknown End: Patient is a former Quit Ten years ago Unknown smoker Recreational Drug Use Denies Drug Use Smoking Status Reviewed: 09/29/19 Patient is a former Quit Ten years ago smoker Allergies, Adverse Reactions, Alerts Active Allergies Reaction Severity Comments Date Penicillin 04/29/2019 Shellfish-Derived Products 04/29/2019 Inactive Allergies NKDA 04/29/2010 Medications Active Medications SIG Qnty Indications Ordering Date Provider Omeprazole take twice daily 30 90caps Sourav Vasques, 08/23/2019 20mg minutes before meals MD Chuck NUNEZ Dicyclomine HCL Take two tablets 10caps Sourav Vasques, 06/27/2019 10mg when experiencing MD Woods abdominal pain; twice a day as needed Prednisone take 2 tablets daily 14tabs J44.9 Saranya, 06/26/2019 20mg x 3 days, then 1 MD Henry Tablets tablet daily x 3 days, then half a tablet daily x 3 days, then stop. Trazodone HCL 2-3 tab po at night [...] 100mg Tablets Needed One Hour Prior To Boron Naltrexone HCL 1 tab by mouth every Unknown 50mg day every morning Tablets History Medications Suprep Bowel Prep Kit complete first 354ml Sourav Vasques, 07/07/2019 - part of prep 09/18/2019 17.5-3.13-1.6GM/177ML the evening Solution before procedure and second part at least 4 hours before your procedure time Suprep Bowel Prep Kit complete first 354ml K59.00 Sourav Vasques, 2018 - part of prep 09/18/2019 17.5-3.13-1.6GM/177ML the evening Solution before procedure and second part at least 4 hours before your procedure time Simethicone take one tablet 2units K59.00 Sourav Vasques, 06/26/2019 - 80mg Chewtabs the night 09/18/2019 before and 1 tablet the morning at least 4 hours prior to procedure Anoro Ellipta 1 puff by mouth 30units Prosper-Jann 06/26/2019 - 62.5-25mcg/Inh every day , MD Henry 07/09/2019 Aerosol Omeprazole Take One 60caps [place], 04/21/2019 - 20mg Capsules DR Capsule By MD Ricky 08/23/2019 Mouth Twice A Day Immunizations Description No Information Available Vital Signs Date Vital Result Comment 09/29/2019 11:27am BP Systolic 115 mmHg BP Diastolic 73 mmHg Body Temperature 97.6 F Heart Rate 59 /min Respiratory Rate 18 /min Height 74 inches 6'2" Weight 247.00 lb Pain Level 0 BMI (Body Mass Index) 31.7 kg/m2 BSA (Body Surface Area) 2.38 m2 [place] body weight in kilograms 86 kg O2 % BldC Oximetry 98 % 07/09/2019 2:42pm BP Systolic Sitting Right Arm 154 mmHg BP Diastolic Sitting Right Arm 92 mmHg Heart Rate 101 /min Respiratory Rate 18 /min Height 74 inches 6'2" Weight 248.00 lb BMI (Body Mass Index) 31.8 kg/m2 BSA (Body Surface Area) 2.38 m2 [place] body weight in kilograms 86 kg O2 % BldC Oximetry 96 % Ora Results Description No Information Available Procedures Date Code Description Status 09/10/2019 41800 Colonoscopy With Polypectomy Completed 09/10/2019 74165 Colonoscopy With Biopsy Completed 09/10/2019 85700 EGD With Biopsy Completed 09/10/2019 57820829 Colonoscopy Completed 07/04/2019 09061 Bronchospasm Provocation Evaluation Multi Spirometric Completed Determinati 07/04/2019 85697 Spirometry Completed 07/04/2019 44005 Spirometry Completed 10/01/2002 22525746 Colonoscopy Completed Medical Devices Description No Information Available Encounters Type Date Location Provider Dx Diagnosis Office Visit 07/09/2019 Pulmonology Saranya J45.909 Unspecified asthma, 2:30p MD Henry uncomplicated Office Visit 06/26/2019 Pulmonology Saranya J44.9 Chronic obstructive 4:00p MD Henry pulmonary disease, unspecified Office Visit 06/26/2019 GI Sourav Vasques MD K59.00 Constipation, 3:00p unspecified R12 Heartburn Office Visit 04/29/2019 2:00p Pulmonology Vamshi Sanchez MD J44.9 Chronic obstructive pulmonary disease, unspecified J18.9 Pneumonia, unspecified organism Z01.818 Encounter for other preprocedural examination Assessments Date Code Description Provider 09/29/2019 K63.5 Polyp of colon Sourav Vasques MD 09/29/2019 K59.00 Constipation, unspecified Sourav Vasques MD 09/10/2019 D12.3 Benign neoplasm of transverse colon Sourav Vasques MD 09/10/2019 D12.2 Benign neoplasm of ascending colon Sourav Vasques MD 09/10/2019 K31.7 Polyp of stomach and duodenum Sourav Vasques MD 09/10/2019 K29.50 Unspecified chronic gastritis without Sourav Vasques MD bleeding 08/25/2019 R12 Heartburn Chad Manuel PA 08/25/2019 K59.00 Constipation, unspecified Chad Manuel PA 07/09/2019 J45.909 Reactive airway disease Henry Beaver MD 07/04/2019 J44.9 Chronic obstructive pulmonary disease, Henry Beaver MD unspecified 07/04/2019 J44.9 Chronic obstructive pulmonary disease, Henry [...] hypertension Raymon Brown MD Plan of Treatment 08/25/2019 - Chad Manuel, PAR12 HeartburnComments:Proceed with EGD as dwhosbnoyJ49.00 Constipation, unspecifiedComments:Proceed with colonoscopy as scheduled. Functional Status Description No Information Available Mental Status Description No Information Available Referrals Refer to Reason for Referral Status Appt Date Brandan Calles MD Refer for anorectal manometry and defecography to Created Dr. Calles [address] [place] [address] [phone]
== END 2019-10-20 14:38 | disposition home or self-care (01) ==
LOC: ED 12:33
DX: R07.89 Other chest pain (principal); F41.9 Anxiety disorder, unspecified; E11.9 Type 2 diabetes mellitus without complications; Z79.84 Long term (current) use of oral hypoglycemic drugs; I10 Essential (primary) hypertension; E78.00 Pure hypercholesterolemia, unspecified; K21.9 Gastro-esophageal reflux disease without esophagitis; Z88.0 Allergy status to penicillin; Z91.013 Allergy to seafood; Z82.49 Family history of ischemic heart disease and other diseases of the circulatory system; Z83.3 Family history of diabetes mellitus
CPT/HCPCS: 36415; 71046; 80053; 82550; 82553; 83605; 83880; 84484; 85025; 86140; 87040; 93005; 99283; A9270-GY

== ENCOUNTER 2020-08-12 08:18 | Inpatient (IN) ==
[2020-08-12 09:12] LABS: ABS Basophils 0.1 10^3/ul (0-0.2); ABS Eosinophils 0.2 10^3/ul (0-0.6); ABS Lymphocytes 1.4 10^3/ul (1.0-4.8); ABS Monocytes 0.6 10^3/ul (0-0.8); ABS Neutrophils 5.5 10^3/ul (1.5-7.7); Eosinophil % 3.1 %; Hematocrit 47 % (42-52); Hemoglobin 15.6 g/dL (14.0-18.0); Lymphocyte % 17.8 %; Mean Corpuscular HGB Conc 33 g/dL (31-36); Mean Corpuscular Hemoglobin 26 pg (27-31); Mean Corpuscular Volume 79 fL (80-94); Platelet Count 139 10^3/uL (150-450); Red Blood Count 5.94 10^6 /uL (4.18-5.48); Red Cell Distribution Width 16 % (10-15); White Blood Count 7.9 10^3/uL (3.5-10.8)
[2020-08-12 09:47] LABS: TSH Ultra Thyroid Stim Horm 0.44 mcIU/mL (0.34-5.60)
[2020-08-12 09:59] LABS: ALT 36 U/L (7-52); AST 19 U/L (13-39); Albumin 4.4 g/dL (3.2-5.2); Albumin/Globulin Ratio 1.4 (1-3); Alkaline Phosphatase 71 U/L (34-104); Anion Gap 13 mmol/L (2-11); BUN/Creatinine Ratio 10.5 (8-20); Blood Urea Nitrogen 10 mg/dL (6-24); CO2 Carbon Dioxide 19 mmol/L (22-32); Calcium 9.8 mg/dL (8.6-10.3); Chloride 106 mmol/L (101-111); EGFR African American 101.1 (>60); EGFR Non-African American 83.6 (>60); Globulin 3.1 g/dL (2-4); Glucose 247 mg/dL (70-100); Potassium 4.4 mmol/L (3.5-5.0); Sodium 138 mmol/L (135-145); Total Protein 7.5 g/dL (6.4-8.9)
[2020-08-12 10:02] LABS: Acetaminophen < 15 mcg/mL; Alcohol, S < 10 mg/dL (<10); Salicylate < 2.50 mg/dL (<30)
[2020-08-12] MEDS ORDERED: Al Hydrox/Mg Hydrox/Simet LIQ 30 ML UDC PO PRN (11:09)
[2020-08-12] MEDS: Glimepiride 2 mg TAB (NF) PO SCH (16:42)
[2020-08-12] MEDS ORDERED: Glimepiride 4 mg TAB (NF) PO SCH (21:00)
[2020-08-13 05:44] LABS: Urine Appearance Cloudy; Urine Bilirubin Negative (Negative); Urine Blood Negative (Negative); Urine Color Yellow; Urine Glucose 3+(>=500 mg/dL) (Negative); Urine Ketones Negative (Negative); Urine Nitrite Negative (Negative); Urine Protein Negative (Negative); Urine Urobilinogen Negative (Negative)
[2020-08-13 06:02] LABS: Urine Benzodiazepine Screen None Detected (None Detect); Urine Cannabinoids Screen Presumptive Positive (None Detect); Urine Opiates Screen None Detected (None Detect)
[2020-08-13] MEDS ORDERED: Testosterone Cypionate (NF) 200 MG/ML VIAL IM SCH (09:00)
[2020-08-13] MEDS ORDERED: Influenza VAC *QUAD* 2020-21* 0.5 ML SYRINGE IM ONE (09:00)
[2020-08-13 09:11] LABS: HIV 4th Generation Nonreactive (Nonreactive)
[2020-08-13] MEDS: Glimepiride 2 mg TAB (NF) PO SCH ×2 (09:19→17:00)
[2020-08-13 09:31] LABS: Hepatitis A Ab IgM Negative (Negative)
[2020-08-13 09:32] LABS: Hepatitis B Core IgM Nonreactive (Nonreactive)
[2020-08-13 09:35] LABS: Hepatitis B Surface Antigen Nonreactive (Nonreactive)
[2020-08-13 09:52] LABS: Hepatitis C Antibody Negative (Negative)
[2020-08-13 15:29] LABS: RPR Nonreactive (Nonreactive)
[2020-08-13] MEDS ORDERED: Albuterol HFA INHALER 8 gm MDI INH PRN (17:54)
[2020-08-14] MEDS: Glimepiride 2 mg TAB (NF) PO SCH ×2 (07:49→17:26)
[2020-08-14] MEDS: SPIRIVA Respimat (tiotropium) 2.5 mcg/inh Inhaler INH SCH (07:49)
[2020-08-15] MEDS: Glimepiride 2 mg TAB (NF) PO SCH ×2 (08:56→16:42)
[2020-08-15] MEDS: SPIRIVA Respimat (tiotropium) 2.5 mcg/inh Inhaler INH SCH (08:57)
[2020-08-15] MEDS ORDERED: Magnesium CITRATE LIQ 300 ML BTL PO ONE (12:30)
[2020-08-16 07:34] LABS: HDL Cholesterol 30.2 mg/dL
[2020-08-16] MEDS: SPIRIVA Respimat (tiotropium) 2.5 mcg/inh Inhaler INH SCH (08:44)
[2020-08-16] MEDS: Glimepiride 2 mg TAB (NF) PO SCH ×2 (08:45→16:38)
[2020-08-16] MEDS ORDERED: Sodium Phosphate ADULT ENEMA 133 ML BTL PR ONE (10:56)
[2020-08-16 13:49] LABS: Chlamydia trachomatis NAA Negative (Negative); Neisseria gonorrhoeae (GC) NAA Negative (Negative)
[2020-08-16 16:35] LABS: T.Pallidum TP-PA Negative (Negative)
[2020-08-17] MEDS: SPIRIVA Respimat (tiotropium) 2.5 mcg/inh Inhaler INH SCH (08:01)
[2020-08-17] MEDS: Glimepiride 2 mg TAB (NF) PO SCH (08:02)
[2020-08-17 10:02] VITALS: BP 119/81
== END 2020-08-17 13:40 | disposition home or self-care (01) | DRG 753 ==
LOC: ED 08:18 → BSU 11:09 → ED 13:47 → BSU 08-15 20:08
PROVIDERS: ADMIT Psychiatry & Neurology Psychiatry; ATTEND Psychiatry & Neurology Psychiatry

== ENCOUNTER 2021-03-23 15:32 | Inpatient (IN) ==
[2021-03-23 16:28] LABS: ABS Basophils 0.1 10^3/ul (0-0.2); ABS Eosinophils 0.2 10^3/ul (0-0.6); ABS Lymphocytes 2.6 10^3/ul (1.0-4.8); ABS Neutrophils 5.6 10^3/ul (1.5-7.7); Eosinophil % 2.4 %; Hematocrit 49 % (42-52); Hemoglobin 16.6 g/dL (14.0-18.0); Lymphocyte % 27.5 %; Mean Corpuscular HGB Conc 34 g/dL (31-36); Mean Corpuscular Hemoglobin 27 pg (27-31); Mean Corpuscular Volume 79 fL (80-94); Mean Platelet Volume 9.3 fL (7.4-10.4); Nucleated Red Blood Cells % 0.1; Platelet Count 191 10^3/uL (150-450); Red Cell Distribution Width 15 % (10-15); White Blood Count 9.5 10^3/uL (3.5-10.8)
[2021-03-23 16:48] LABS: ALT 21 U/L (7-52); Albumin 4.6 g/dL (3.2-5.2); Albumin/Globulin Ratio 1.4 (1-3); Alkaline Phosphatase 62 U/L (35-149); Blood Urea Nitrogen 11 mg/dL (6-24); CO2 Carbon Dioxide 19 mmol/L (22-32); Calcium 9.7 mg/dL (8.6-10.3); Chloride 102 mmol/L (101-111); EGFR African American 81.6 (>60); EGFR Non-African American 67.5 (>60); Globulin 3.3 g/dL (2-4); Glucose 125 mg/dL (70-100); Sodium 135 mmol/L (135-145); Total Protein 7.9 g/dL (6.4-8.9)
[2021-03-23 16:52] LABS: AST 25 U/L (13-39); Anion Gap 14 mmol/L (2-11); Potassium 4.5 mmol/L (3.5-5.0)
[2021-03-23] MEDS ORDERED: NS 0.9% 1000 ml BAG 1,000 ML IV ONE (17:08)
[2021-03-23 17:12] LABS: Alcohol, S < 10 mg/dL (<10)
[2021-03-23] MEDS ORDERED: Magnesium Hydroxide LIQ 30 ML UDC PO PRN (20:22)
[2021-03-23] MEDS ORDERED: Ondansetron 4 mg VIAL 2 MG/ML 2 ml VIAL IV PRN (20:22)
[2021-03-23 20:47] LABS: TSH Ultra Thyroid Stim Horm 3.57 mcIU/mL (0.34-5.60)
[2021-03-23 22:13] LABS: Salicylate < 2.50 mg/dL (<30)
[2021-03-23] MEDS ORDERED: Acetaminop/Codeine 300mg/30mg TAB PO PRN (22:15)
[2021-03-23] MEDS ORDERED: Enoxaparin 40 MG/0.4 ML SYR SUBCUT SCH (23:00)
[2021-03-23 23:01] LABS: C Reactive Protein 1.81 mg/L (<8.01)
[2021-03-23] MEDS: Acetaminop/Codeine 300mg/30mg TAB PO PRN (23:23)
[2021-03-23 23:41] LABS: Testosterone 1515.34 ng/dL (240-950)
[2021-03-23 23:53] LABS: Free T4 1.04 ng/dL (0.61-1.12)
[2021-03-24] MEDS ORDERED: Dextrose 50% Syringe 50 ml 25 GM/50 ML SYRINGE IV PUSH PRN (00:04)
[2021-03-24 06:03] LABS: ABS Basophils 0.1 10^3/ul (0-0.2); ABS Eosinophils 0.2 10^3/ul (0-0.6); ABS Lymphocytes 2.1 10^3/ul (1.0-4.8); ABS Neutrophils 5.5 10^3/ul (1.5-7.7); Eosinophil % 2.1 %; Hematocrit 45 % (42-52); Hemoglobin 15.1 g/dL (14.0-18.0); Lymphocyte % 23.8 %; Mean Corpuscular HGB Conc 34 g/dL (31-36); Mean Corpuscular Hemoglobin 26 pg (27-31); Mean Corpuscular Volume 78 fL (80-94); Mean Platelet Volume 9.1 fL (7.4-10.4); Nucleated Red Blood Cells % 0.1; Platelet Count 159 10^3/uL (150-450); Red Blood Count 5.73 10^6 /uL (4.18-5.48); Red Cell Distribution Width 15 % (10-15); White Blood Count 8.9 10^3/uL (3.5-10.8)
[2021-03-24 06:19] LABS: Albumin/Globulin Ratio 1.7 (1-3); Calcium 8.7 mg/dL (8.6-10.3); EGFR African American 100.7 (>60); EGFR Non-African American 83.3 (>60); Globulin 2.4 g/dL (2-4); Potassium 3.9 mmol/L (3.5-5.0); Total Bilirubin 0.5 mg/dL (0.2-1.0); Total Protein 6.4 g/dL (6.4-8.9)
[2021-03-24] MEDS: Acetaminop/Codeine 300mg/30mg TAB PO PRN ×2 (08:12→12:42)
[2021-03-24] MEDS ORDERED: Tiotropium Brom/Olodaterol MDI INH SCH (09:00)
[2021-03-24 11:29] VITALS: BP 125/87
[2021-03-24 13:58] LABS: Urine Benzodiazepine Screen None Detected (None Detect); Urine Cannabinoids Screen Presumptive Positive (None Detect); Urine Opiates Screen Presumptive Positive (None Detect)
[2021-03-25] MEDS ORDERED: Testosterone Cypionate (NF) 200 MG/ML VIAL IM SCH (09:00)
== END 2021-03-24 15:38 | disposition home or self-care (01) | DRG 53 ==
LOC: ED 15:32 → MEDTELE 20:22
PROVIDERS: ADMIT Internal Medicine; ATTEND Internal Medicine

== ENCOUNTER 2021-04-28 14:16 | Observation (INO) ==
[~2021-04-28 14:16] MED LIST: Buffered Lidocaine 1% SYRIN 1 ml INTRADERM ONE; Famotidine IV 10 MG/ML 2 ml VIAL (20 mg) IV ONE; Lactated Ringers 1000 ml BAG 1,000 ML IV SCH
[2021-04-28] MEDS ORDERED: Famotidine IV 10 MG/ML 2 ml VIAL (20 mg) ONE (14:44)
[2021-04-28] MEDS ORDERED: Clindamycin 900 MG/D5W BAG 900 MG/50 ML BAG IVPB ONE (14:44)
[2021-04-28] MEDS ORDERED: Propofol 10 MG/ML 20 ML BTL ONE ×2 (16:10→18:48)
[2021-04-28] MEDS ORDERED: Rocuronium 50 mg VIAL 10 mg/ml 5 ml VIAL (50 mg) ONE (16:10)
[2021-04-28] MEDS ORDERED: Lidocaine 2% PF 5 ML VIAL ONE (16:10)
[2021-04-28] MEDS ORDERED: fentaNYL 100 mcg/2 ml 50 MCG/ML VIAL ONE ×2 (16:11→20:05)
[2021-04-28] MEDS ORDERED: Midazolam 2 mg/2 ml VIAL 1 mg/ml 2 ml VIAL (2 mg) ONE (16:11)
[2021-04-28] MEDS ORDERED: Dexamethasone IV 4 MG/ML VIAL 1 ml VIAL ONE (16:25)
[2021-04-28] MEDS ORDERED: Acetaminophen IV 1 GM/100ML 100 ML IV ONE (16:26)
[2021-04-28] MEDS ORDERED: Ondansetron 4 mg VIAL 2 MG/ML 2 ml VIAL ONE (16:26)
[2021-04-28] MEDS ORDERED: ROPIVACAINE 5 MG/ML 30 ML BTL (0.5%) ONE (16:38)
[2021-04-28] MEDS ORDERED: HYDROmorphone 1 MG/1 ML SYRINGE ONE ×3 (17:38→20:21)
[2021-04-28] MEDS ORDERED: Ondansetron 4 mg VIAL 2 MG/ML 2 ml VIAL IV PRN ×2 (17:44→18:30)
[2021-04-28] MEDS ORDERED: Naloxone 0.4 mg VIAL 0.4 mg/ml 1 ml VIAL IV PRN (17:44)
[2021-04-28] MEDS ORDERED: Midazolam 2 mg/2 ml VIAL 1 mg/ml 2 ml VIAL (2 mg) IV PRN (17:46)
[2021-04-28] MEDS ORDERED: fentaNYL 250 mcg/5 ml 50 MCG/ML 5 ml VIAL (250 MCG) ONE (17:48)
[2021-04-28] MEDS ORDERED: Morphine 2 MG/ML SYRINGE IV PRN (18:30)
[2021-04-28] MEDS ORDERED: Lactulose 30 ml UDC PO PRN (18:30)
[2021-04-28] MEDS ORDERED: Magnesium Hydroxide LIQ 30 ML UDC PO PRN (18:30)
[2021-04-28] MEDS ORDERED: diPHENhydraMINE 25 mg TAB PO PRN (18:30)
[2021-04-28] MEDS ORDERED: Ondansetron ODT 4 mg TAB 4 MG TAB PO PRN (18:30)
[2021-04-28] MEDS ORDERED: diPHENhydraMINE IV 50 MG/ML 1 ml VIAL (BENADRYL) IV PRN (18:30)
[2021-04-28] MEDS ORDERED: Lactated Ringers 1000 ml BAG 1,000 ML IV SCH (19:00)
[2021-04-28] MEDS: fentaNYL 100 mcg/2 ml 50 MCG/ML VIAL IV PRN ×2 (20:06→20:12)
[2021-04-28] MEDS: HYDROmorphone 1 MG/1 ML SYRINGE IV PRN ×2 (20:21→20:32)
[2021-04-28] MEDS: Magnesium Hydroxide LIQ 30 ML UDC PO SCH (23:47)
[2021-04-29] MEDS: Clindamycin 600 MG/D5W BAG 600 MG/50 ML BAG IV SCH ×3 (00:01→16:29)
[2021-04-29 06:23] LABS: Hematocrit 38 % (42-52); Mean Platelet Volume 9.3 fL (7.4-10.4); Platelet Count 142 10^3/uL (150-450)
[2021-04-29 06:46] LABS: Calcium 8.3 mg/dL (8.6-10.3); EGFR African American 96.1 (>60); EGFR Non-African American 79.4 (>60); Potassium 4.2 mmol/L (3.5-5.0)
[2021-04-29] MEDS: Magnesium Hydroxide LIQ 30 ML UDC PO SCH (08:01)
[2021-04-29] MEDS ORDERED: Vitamin THERAPEUTIC TAB PO SCH (09:00)
[2021-04-29] MEDS ORDERED: Tiotropium Brom/Olodaterol MDI INH SCH (09:00)
[2021-04-29] MEDS ORDERED: Amphetamine MIXED SALT 10mgTAB PO SCH (14:59)
[2021-04-29 15:42] VITALS: BP 108/65
== END 2021-04-29 17:17 | disposition home or self-care (01) ==
LOC: SSU 14:16 → OR 14:16
PROVIDERS: ADMIT Orthopaedic Surgery Adult Reconstructive Orthopaedic Surgery; ATTEND Internal Medicine

== ENCOUNTER 2021-05-01 14:25 | Inpatient (IN) ==
[2021-05-01] MEDS ORDERED: Ciprofloxacin 400mg IVPREMIX 400 MG/200 ML BAG IVPB ONE (14:31)
[2021-05-01] MEDS ORDERED: metroNIDAZOLE IV 500 MG/100ML 500 MG/100 ML BAG IVPB ONE (14:31)
[2021-05-01] MEDS ORDERED: NS 0.9% 250 ml 250 ML ONE (14:58)
[2021-05-01] MEDS ORDERED: Vancomycin 1,500 MG in NS 0.9% 250 ml 250 ML IVPB ONE (15:00)
[2021-05-01] MEDS ORDERED: NORMOSOL R PH IV SCH (15:00)
[2021-05-01] MEDS ORDERED: NORMOSOL-R pH 7.4 1000 mL BAG 1,000 ML IV SCH (15:00)
[2021-05-01 15:02] LABS: ABS Basophils 0.1 10^3/ul (0-0.2); ABS Eosinophils 0.3 10^3/ul (0-0.6); ABS Lymphocytes 1.8 10^3/ul (1.0-4.8); ABS Monocytes 1.2 10^3/ul (0-0.8); ABS Neutrophils 6.7 10^3/ul (1.5-7.7); Eosinophil % 3.1 %; Hematocrit 39 % (42-52); Hemoglobin 13.2 g/dL (14.0-18.0); Lymphocyte % 17.9 %; Mean Corpuscular HGB Conc 34 g/dL (31-36); Mean Corpuscular Hemoglobin 27 pg (27-31); Mean Corpuscular Volume 79 fL (80-94); Nucleated Red Blood Cells % 0.1; Platelet Count 140 10^3/uL (150-450); Red Blood Count 4.97 10^6 /uL (4.18-5.48); Red Cell Distribution Width 16 % (10-15); White Blood Count 10.1 10^3/uL (3.5-10.8)
[2021-05-01 15:20] LABS: Albumin 4.4 g/dL (3.2-5.2); Albumin/Globulin Ratio 1.4 (1-3); C Reactive Protein 239.51 mg/L (<8.01); Calcium 9.6 mg/dL (8.6-10.3); EGFR African American 67.7 (>60); Globulin 3.1 g/dL (2-4); Potassium 3.8 mmol/L (3.5-5.0); Total Bilirubin 1.1 mg/dL (0.2-1.0); Total Protein 7.5 g/dL (6.4-8.9)
[2021-05-01 15:21] LABS: Activated Partial Thrombo Time 32.7 seconds (26.0-38.0); INR 1.53 (0.86-1.15)
[2021-05-01 15:22] LABS: Troponin I 0.01 ng/mL (<0.03)
[2021-05-01] MEDS: Lactated Ringers 1000 ml BAG 1,000 ML IV SCH ×2 (15:29→15:30)
[2021-05-01] MEDS ORDERED: Iodixanol (CONTRAST) 320 MG/ML 100 ML SDV IV ONE ×2 (15:47→16:06)
[2021-05-01] MEDS ORDERED: Heparin 5000 UNITS/ML 1 mL VIAL ONE (16:31)
[2021-05-01] MEDS: Heparin 5000 UNITS/ML 1 mL VIAL IV SCH ×2 (16:36→23:59)
[2021-05-01] MEDS: Heparin DRIP 25,000 UNITS BAG 25,000 UNITS/500 ML BAG IV SCH (16:49)
[2021-05-01] MEDS ORDERED: Morphine 4 MG/ML VIAL (1 ml) IV ONE (17:27)
[2021-05-01] MEDS ORDERED: oxyCODONE/Acetamin 5/325 mg TAB PO ONE (18:04)
[2021-05-01] MEDS ORDERED: fentaNYL 100 mcg/2 ml 50 MCG/ML VIAL IV SLOW PU ONE (18:46)
[2021-05-01] MEDS ORDERED: HYDROmorphone 0.5 MG/0.5 ML SYRINGE IV PRN (20:46)
[2021-05-01] MEDS ORDERED: Morphine 4 MG/ML VIAL (1 ml) IV PRN ×2 (21:07→22:55)
[2021-05-01] MEDS ORDERED: Ondansetron ODT 4 mg TAB 4 MG TAB SL PRN (21:33)
[2021-05-01 21:38] LABS: Urine Appearance Clear; Urine Bilirubin Negative (Negative); Urine Blood 1+ (Negative); Urine Color Yellow; Urine Glucose 3+(>=500 mg/dL) (Negative); Urine Ketones Trace (Negative); Urine Nitrite Negative (Negative); Urine Protein Negative (Negative); Urine Urobilinogen Negative (Negative)
[2021-05-01 21:45] LABS: Urine Bacteria Absent (Absent); Urine Red Blood Cell 1+(3-5/hpf) (Absent); Urine Squamous Epithelial Cell Present (Absent); Urine White Blood Cell Trace(0-5/hpf) (Absent)
[2021-05-01] MEDS ORDERED: Dextrose 50% Syringe 50 ml 25 GM/50 ML SYRINGE IV PUSH PRN (21:49)
[2021-05-01] MEDS ORDERED: Senna TAB 8.6 mg TAB PO PRN (23:37)
[2021-05-01] MEDS ORDERED: Magnesium Sulfate IV 1GM/100ML 1 GM/100 ML BAG IV ONE (23:43)
[2021-05-02] MEDS: Acetaminophen IV 1 GM/100ML 100 ML IV SCH ×3 (00:19→11:55)
[2021-05-02] MEDS: metroNIDAZOLE IV 500 MG/100ML 500 MG/100 ML BAG IVPB SCH ×3 (01:08→17:22)
[2021-05-02] MEDS ORDERED: Vancomycin per Pharmacy 1 EA NOTE FOLLOW UP PRN (03:51)
[2021-05-02] MEDS: Vancomycin 1,500 MG in NS 0.9% 250 ml 250 ML IVPB SCH ×2 (03:52→17:03)
[2021-05-02] MEDS ORDERED: Vancomycin 1,500 MG in NS 0.9% 250 ml 250 ML IVPB SCH (04:00)
[2021-05-02] MEDS: Heparin DRIP 25,000 UNITS BAG 25,000 UNITS/500 ML BAG IV SCH ×2 (04:54→15:50)
[2021-05-02] MEDS ORDERED: Ciprofloxacin 400mg IVPREMIX 400 MG/200 ML BAG IVPB SCH (06:00)
[2021-05-02 06:20] LABS: ABS Basophils 0.1 10^3/ul (0-0.2); ABS Eosinophils 0.6 10^3/ul (0-0.6); ABS Lymphocytes 1.5 10^3/ul (1.0-4.8); ABS Monocytes 0.8 10^3/ul (0-0.8); ABS Neutrophils 3.6 10^3/ul (1.5-7.7); Eosinophil % 8.9 %; Hematocrit 33 % (42-52); Lymphocyte % 22.6 %; Mean Corpuscular HGB Conc 34 g/dL (31-36); Mean Corpuscular Hemoglobin 27 pg (27-31); Mean Corpuscular Volume 80 fL (80-94); Mean Platelet Volume 9.1 fL (7.4-10.4); Nucleated Red Blood Cells % 0.1; Platelet Count 106 10^3/uL (150-450); Red Blood Count 4.08 10^6 /uL (4.18-5.48); Red Cell Distribution Width 16 % (10-15); White Blood Count 6.6 10^3/uL (3.5-10.8)
[2021-05-02 06:35] LABS: Calcium 8.2 mg/dL (8.6-10.3); EGFR African American 93.9 (>60); EGFR Non-African American 77.6 (>60)
[2021-05-02] MEDS ORDERED: Dextrose 50% Syringe 50 ml 25 GM/50 ML SYRINGE IV PUSH PRN (08:09)
[2021-05-02] MEDS: Tiotropium Brom/Olodaterol MDI INH SCH (08:09)
[2021-05-02] MEDS ORDERED: CLONIDINE HCL 0.2 MG PO SCH (09:00)
[2021-05-02] MEDS: Polyethylene Glycol 3350 17 GM PACKET PO SCH (09:48)
[2021-05-02 10:59] LABS: Body Fluid Source Synovial Fluid
[2021-05-02 14:27] LABS: Body Fluid Appearance Bloody; Body Fluid Color Red
[2021-05-02 14:41] LABS: Body Fluid WBC 251 /mcL
[2021-05-02 14:46] LABS: Body Fluid Mono 3 %; Body Fluid Total Cells Counted 200
[2021-05-02] MEDS ORDERED: Lactated Ringers 1000 ml BAG 1,000 ML IV SCH (15:00)
[2021-05-02] MEDS: Heparin 5000 UNITS/ML 1 mL VIAL IV SCH (15:45)
[2021-05-02] MEDS ORDERED: Thiamine 100 MG/ML 2 ml VIAL (200 mg) IM ONE (23:06)
[2021-05-03] MEDS: Vancomycin 1,500 MG in NS 0.9% 250 ml 250 ML IVPB SCH ×2 (04:07→16:47)
[2021-05-03 06:15] LABS: ABS Eosinophils 0.3 10^3/ul (0-0.6); ABS Lymphocytes 1.1 10^3/ul (1.0-4.8); ABS Monocytes 0.8 10^3/ul (0-0.8); ABS Neutrophils 3.7 10^3/ul (1.5-7.7); Eosinophil % 5.1 %; Hematocrit 29 % (42-52); Lymphocyte % 18.8 %; Mean Corpuscular HGB Conc 34 g/dL (31-36); Mean Corpuscular Hemoglobin 27 pg (27-31); Mean Corpuscular Volume 79 fL (80-94); Mean Platelet Volume 9.2 fL (7.4-10.4); Platelet Count 124 10^3/uL (150-450); Red Cell Distribution Width 16 % (10-15); White Blood Count 5.9 10^3/uL (3.5-10.8)
[2021-05-03] MEDS: Amphetamine MIXED SALT 10mgTAB PO SCH ×2 (06:28→13:45)
[2021-05-03 06:33] LABS: C Reactive Protein 167.22 mg/L (<8.01); EGFR African American 119.4 (>60); EGFR Non-African American 98.7 (>60); Potassium 3.6 mmol/L (3.5-5.0)
[2021-05-03] MEDS: Tiotropium Brom/Olodaterol MDI INH SCH (07:38)
[2021-05-03] MEDS: Multivitamins/Minerals TAB PO SCH (08:35)
[2021-05-03] MEDS: Polyethylene Glycol 3350 17 GM PACKET PO SCH (08:37)
[2021-05-03] MEDS ORDERED: Vancomycin Trough Check NOTE FOLLOW UP ONE (15:30)
[2021-05-03] MEDS ORDERED: Lactated Ringers 1000 ml BAG 1,000 ML IV ONE (15:36)
[2021-05-03] MEDS ORDERED: Magnesium Hydroxide LIQ 30 ML UDC PO ONE (19:23)
[2021-05-03] MEDS ORDERED: HYDROmorphone 1 MG/1 ML SYRINGE IV ONE (23:45)
[2021-05-04] MEDS: Vancomycin 1,250 MG in NS 0.9% 250 ml 250 ML IVPB SCH ×3 (00:16→16:36)
[2021-05-04 00:41] LABS: ABS Basophils 0.1 10^3/ul (0-0.2); ABS Eosinophils 0.3 10^3/ul (0-0.6); ABS Lymphocytes 1.3 10^3/ul (1.0-4.8); ABS Monocytes 0.8 10^3/ul (0-0.8); ABS Neutrophils 3.2 10^3/ul (1.5-7.7); Hematocrit 31 % (42-52); Hemoglobin 10.1 g/dL (14.0-18.0); Lymphocyte % 22.7 %; Mean Corpuscular HGB Conc 33 g/dL (31-36); Mean Corpuscular Hemoglobin 26 pg (27-31); Mean Corpuscular Volume 79 fL (80-94); Mean Platelet Volume 8.3 fL (7.4-10.4); Nucleated Red Blood Cells % 0.1; Platelet Count 145 10^3/uL (150-450); Red Blood Count 3.87 10^6 /uL (4.18-5.48); Red Cell Distribution Width 16 % (10-15); White Blood Count 5.6 10^3/uL (3.5-10.8)
[2021-05-04 00:59] LABS: Calcium 8.1 mg/dL (8.6-10.3); EGFR African American 117.7 (>60); EGFR Non-African American 97.3 (>60); Potassium 3.4 mmol/L (3.5-5.0)
[2021-05-04] MEDS ORDERED: Potassium Chlor 20 meq TAB.ER PO ONE (04:13)
[2021-05-04] MEDS: Amphetamine MIXED SALT 10mgTAB PO SCH ×2 (05:59→14:17)
[2021-05-04] MEDS: MEDICAL MARIJUANA PO SCH (06:00)
[2021-05-04 07:19] LABS: EGFR African American 116.1 (>60)
[2021-05-04] MEDS: Tiotropium Brom/Olodaterol MDI INH SCH (07:58)
[2021-05-04] MEDS: Polyethylene Glycol 3350 17 GM PACKET PO SCH (08:24)
[2021-05-04] MEDS: Multivitamins/Minerals TAB PO SCH (08:25)
[2021-05-04] MEDS: HYDROmorphone 0.5 MG/0.5 ML SYRINGE IV PRN ×3 (12:48→22:18)
[2021-05-05] MEDS: Vancomycin 1,250 MG in NS 0.9% 250 ml 250 ML IVPB SCH ×2 (00:37→08:34)
[2021-05-05 05:52] LABS: ABS Basophils 0.1 10^3/ul (0-0.2); ABS Eosinophils 0.3 10^3/ul (0-0.6); ABS Monocytes 0.7 10^3/ul (0-0.8); ABS Neutrophils 3.5 10^3/ul (1.5-7.7); Eosinophil % 5.4 %; Hematocrit 30 % (42-52); Lymphocyte % 17.7 %; Mean Corpuscular HGB Conc 33 g/dL (31-36); Mean Corpuscular Hemoglobin 27 pg (27-31); Mean Corpuscular Volume 80 fL (80-94); Mean Platelet Volume 8.6 fL (7.4-10.4); Nucleated Red Blood Cells % 0.1; Platelet Count 152 10^3/uL (150-450); Red Blood Count 3.77 10^6 /uL (4.18-5.48); Red Cell Distribution Width 16 % (10-15); White Blood Count 5.6 10^3/uL (3.5-10.8)
[2021-05-05] MEDS: HYDROmorphone 0.5 MG/0.5 ML SYRINGE IV PRN (05:57)
[2021-05-05] MEDS: MEDICAL MARIJUANA PO SCH (06:02)
[2021-05-05 06:13] LABS: EGFR African American 119.4 (>60); EGFR Non-African American 98.7 (>60)
[2021-05-05 06:14] LABS: Calcium 8.1 mg/dL (8.6-10.3); EGFR African American 122.8 (>60); EGFR Non-African American 101.5 (>60)
[2021-05-05] MEDS: Amphetamine MIXED SALT 10mgTAB PO SCH ×2 (06:29→14:21)
[2021-05-05 06:32] LABS: Vancomycin Trough 16.5 mcg/mL
[2021-05-05] MEDS ORDERED: Vancomycin Trough Check NOTE FOLLOW UP ONE (07:30)
[2021-05-05] MEDS ORDERED: Sodium Phosphate ADULT ENEMA 133 ML BTL PR ONE (08:00)
[2021-05-05] MEDS ORDERED: Magnesium CITRATE LIQ 300 ML BTL PO ONE (08:00)
[2021-05-05] MEDS: Tiotropium Brom/Olodaterol MDI INH SCH (08:24)
[2021-05-05] MEDS: Multivitamins/Minerals TAB PO SCH (08:35)
[2021-05-05] MEDS: Polyethylene Glycol 3350 17 GM PACKET PO SCH (08:38)
[2021-05-05] MEDS ORDERED: ceFAZolin 2 GM in NS PREMIX 2 GM/100 ML BAG IVPB SCH (09:30)
[2021-05-05] MEDS: ceFAZolin 2 GM in NS PREMIX 2 GM/100 ML BAG IVPB SCH ×2 (11:46→21:46)
[2021-05-05] MEDS: Senna TAB 8.6 mg TAB PO SCH (22:04)
[2021-05-06] MEDS: ceFAZolin 2 GM in NS PREMIX 2 GM/100 ML BAG IVPB SCH ×3 (03:53→20:24)
[2021-05-06] MEDS: MEDICAL MARIJUANA PO SCH (05:46)
[2021-05-06] MEDS: Amphetamine MIXED SALT 10mgTAB PO SCH ×2 (06:05→13:44)
[2021-05-06] MEDS: Polyethylene Glycol 3350 17 GM PACKET PO SCH (08:10)
[2021-05-06] MEDS: Multivitamins/Minerals TAB PO SCH (09:06)
[2021-05-06] MEDS: Tiotropium Brom/Olodaterol MDI INH SCH (09:58)
[2021-05-06] MEDS: Senna TAB 8.6 mg TAB PO SCH (22:50)
[2021-05-07] MEDS: ceFAZolin 2 GM in NS PREMIX 2 GM/100 ML BAG IVPB SCH ×3 (04:35→19:25)
[2021-05-07] MEDS: Amphetamine MIXED SALT 10mgTAB PO SCH ×2 (05:54→13:38)
[2021-05-07] MEDS: MEDICAL MARIJUANA PO SCH (05:54)
[2021-05-07] MEDS: Multivitamins/Minerals TAB PO SCH (08:49)
[2021-05-07] MEDS: Polyethylene Glycol 3350 17 GM PACKET PO SCH (08:49)
[2021-05-07] MEDS: Tiotropium Brom/Olodaterol MDI INH SCH (08:51)
[2021-05-07] MEDS ORDERED: Calcium Carb (TUMS) 500 mg CHEW TAB PO PRN (19:39)
[2021-05-07] MEDS: Senna TAB 8.6 mg TAB PO SCH (21:31)
[2021-05-08] MEDS: ceFAZolin 2 GM in NS PREMIX 2 GM/100 ML BAG IVPB SCH ×3 (04:46→20:12)
[2021-05-08] MEDS: Amphetamine MIXED SALT 10mgTAB PO SCH ×2 (06:16→15:37)
[2021-05-08] MEDS: MEDICAL MARIJUANA PO SCH (06:17)
[2021-05-08] MEDS: Multivitamins/Minerals TAB PO SCH (08:06)
[2021-05-08] MEDS: Polyethylene Glycol 3350 17 GM PACKET PO SCH (08:07)
[2021-05-08] MEDS: Tiotropium Brom/Olodaterol MDI INH SCH (08:56)
[2021-05-08] MEDS ORDERED: HYDROmorphone 1 MG/1 ML SYRINGE IV SLOW PU ONE (15:04)
[2021-05-08] MEDS: Senna TAB 8.6 mg TAB PO SCH (20:09)
[2021-05-09] MEDS: ceFAZolin 2 GM in NS PREMIX 2 GM/100 ML BAG IVPB SCH ×2 (04:11→13:00)
[2021-05-09] MEDS: MEDICAL MARIJUANA PO SCH (05:47)
[2021-05-09] MEDS: Amphetamine MIXED SALT 10mgTAB PO SCH (05:54)
[2021-05-09] MEDS: Tiotropium Brom/Olodaterol MDI INH SCH (07:14)
[2021-05-09] MEDS: Polyethylene Glycol 3350 17 GM PACKET PO SCH (09:13)
[2021-05-09] MEDS: Multivitamins/Minerals TAB PO SCH (09:13)
[2021-05-09 11:39] VITALS: BP 128/88
== END 2021-05-09 14:35 | disposition home health service (06) | DRG 711 ==
LOC: ED 14:25 → SSU 20:22
PROVIDERS: ADMIT Internal Medicine; ATTEND Hospitalist

== ENCOUNTER 2021-05-19 11:14 | Inpatient (IN) ==
[2021-05-19 12:09] LABS: ABS Basophils 0.1 10^3/ul (0-0.2); ABS Eosinophils 0.2 10^3/ul (0-0.6); ABS Lymphocytes 1.4 10^3/ul (1.0-4.8); ABS Monocytes 0.8 10^3/ul (0-0.8); ABS Neutrophils 6.2 10^3/ul (1.5-7.7); Eosinophil % 2.5 %; Hematocrit 35 % (42-52); Hemoglobin 11.7 g/dL (14.0-18.0); Lymphocyte % 15.9 %; Mean Corpuscular HGB Conc 34 g/dL (31-36); Mean Corpuscular Hemoglobin 26 pg (27-31); Mean Corpuscular Volume 77 fL (80-94); Mean Platelet Volume 8.5 fL (7.4-10.4); Platelet Count 336 10^3/uL (150-450); Red Blood Count 4.54 10^6 /uL (4.18-5.48); Red Cell Distribution Width 15 % (10-15); White Blood Count 8.7 10^3/uL (3.5-10.8)
[2021-05-19 12:31] LABS: Albumin 3.9 g/dL (3.2-5.2); Albumin/Globulin Ratio 1.2 (1-3); CRP High Sensitivity 54.77 mg/L (<2.00); Calcium 9.7 mg/dL (8.6-10.3); EGFR African American 89.7 (>60); EGFR Non-African American 74.2 (>60); Globulin 3.3 g/dL (2-4); Potassium 4.3 mmol/L (3.5-5.0); Total Bilirubin 0.6 mg/dL (0.2-1.0); Total Protein 7.2 g/dL (6.4-8.9)
[2021-05-19] MEDS ORDERED: Vancomycin 1,000 MG VIAL IVPB ONE (12:43)
[2021-05-19] MEDS ORDERED: Omeprazole 20 mg CAP (NF) PO ONE (13:45)
[2021-05-19] MEDS ORDERED: Vancomycin 1500 MG IV - x ONCE IVPB ONE (14:00)
[2021-05-19] MEDS ORDERED: NS 0.9% 250 ml 250 ML ONE (14:00)
[2021-05-19] MEDS ORDERED: Iodixanol (CONTRAST) 320 MG/ML 100 ML SDV IV ONE (16:58)
[2021-05-19] MEDS ORDERED: Albuterol/Ipratropium NEB.SOL (2.5/0.5 MG) 3 ML NEB.SOLN INH PRN (21:17)
[2021-05-19] MEDS ORDERED: Albuterol HFA INHALER 8 gm MDI INH PRN (21:17)
[2021-05-19] MEDS ORDERED: Morphine 2 MG/ML SYRINGE IV ONE (22:25)
[2021-05-20] MEDS ORDERED: Morphine 4 MG/ML VIAL (1 ml) IV ONE (01:13)
[2021-05-20] MEDS ORDERED: Vancomycin 1,750 MG in NS 0.9% 500 ml BAG 500 ML IVPB SCH (02:00)
[2021-05-20] MEDS: Vancomycin 1,750 MG in NS 0.9% 500 ml BAG 500 ML IVPB SCH ×2 (05:20→17:05)
[2021-05-20 06:20] LABS: Hematocrit 32 % (42-52); Hemoglobin 10.6 g/dL (14.0-18.0); Mean Corpuscular HGB Conc 34 g/dL (31-36); Mean Corpuscular Hemoglobin 26 pg (27-31); Mean Corpuscular Volume 77 fL (80-94); Mean Platelet Volume 8.6 fL (7.4-10.4); Platelet Count 271 10^3/uL (150-450); Red Blood Count 4.11 10^6 /uL (4.18-5.48); Red Cell Distribution Width 16 % (10-15); White Blood Count 6.2 10^3/uL (3.5-10.8)
[2021-05-20 06:36] LABS: Calcium 8.9 mg/dL (8.6-10.3); EGFR African American 94.9 (>60); EGFR Non-African American 78.5 (>60); Potassium 4.1 mmol/L (3.5-5.0)
[2021-05-20] MEDS ORDERED: Vancomycin per Pharmacy 1 EA NOTE FOLLOW UP SCH (09:00)
[2021-05-20] MEDS: ROSUVASTATIN 20 MG PO SCH (10:35)
[2021-05-20] MEDS: Lactulose 30 ml UDC PO SCH ×3 (10:35→21:20)
[2021-05-20] MEDS ORDERED: diPHENhydraMINE IV 50 MG/ML 1 ml VIAL (BENADRYL) IV ONE (23:28)
[2021-05-21] MEDS: Lactulose 30 ml UDC PO SCH ×3 (03:30→14:50)
[2021-05-21] MEDS: Vancomycin 1,750 MG in NS 0.9% 500 ml BAG 500 ML IVPB SCH ×2 (04:31→17:35)
[2021-05-21 06:06] LABS: ABS Basophils 0.1 10^3/ul (0-0.2); ABS Eosinophils 0.3 10^3/ul (0-0.6); ABS Lymphocytes 1.2 10^3/ul (1.0-4.8); ABS Monocytes 0.7 10^3/ul (0-0.8); ABS Neutrophils 3.9 10^3/ul (1.5-7.7); Eosinophil % 4.8 %; Hematocrit 32 % (42-52); Hemoglobin 10.3 g/dL (14.0-18.0); Lymphocyte % 20.3 %; Mean Corpuscular HGB Conc 32 g/dL (31-36); Mean Corpuscular Hemoglobin 25 pg (27-31); Mean Corpuscular Volume 79 fL (80-94); Mean Platelet Volume 8.6 fL (7.4-10.4); Nucleated Red Blood Cells % 0.1; Platelet Count 226 10^3/uL (150-450); Red Blood Count 4.07 10^6 /uL (4.18-5.48); Red Cell Distribution Width 15 % (10-15); White Blood Count 6.1 10^3/uL (3.5-10.8)
[2021-05-21 06:22] LABS: Calcium 8.7 mg/dL (8.6-10.3); EGFR African American 94.9 (>60); EGFR Non-African American 78.5 (>60); Potassium 3.8 mmol/L (3.5-5.0)
[2021-05-21] MEDS: ROSUVASTATIN 20 MG PO SCH (09:04)
[2021-05-21] MEDS ORDERED: Vancomycin Trough Check NOTE FOLLOW UP ONE (16:30)
[2021-05-21 16:44] LABS: EGFR African American 83.3 (>60); EGFR Non-African American 68.8 (>60)
[2021-05-21 17:20] LABS: Vancomycin Trough 15.4 mcg/mL
[2021-05-21] MEDS: Senna TAB 8.6 mg TAB PO SCH (17:30)
[2021-05-21] MEDS: Heparin 5000 UNITS/ML 1 mL VIAL SUBCUT SCH (22:26)
[2021-05-22] MEDS ORDERED: Vancomycin 1,500 MG in NS 0.9% 250 ml 250 ML IVPB SCH (05:00)
[2021-05-22] MEDS: Heparin 5000 UNITS/ML 1 mL VIAL SUBCUT SCH ×3 (06:04→21:14)
[2021-05-22] MEDS: Senna TAB 8.6 mg TAB PO SCH (08:36)
[2021-05-22] MEDS: ROSUVASTATIN 20 MG PO SCH (08:37)
[2021-05-22 11:27] LABS: C Reactive Protein 38.76 mg/L (<8.01)
[2021-05-22] MEDS: ceFAZolin 2 GM in NS PREMIX 2 GM/100 ML BAG IVPB SCH ×2 (11:49→19:28)
[2021-05-22] MEDS ORDERED: Magnesium Hydroxide LIQ 30 ML UDC PO PRN (13:16)
[2021-05-22] MEDS ORDERED: Senna TAB 8.6 mg TAB PO PRN (13:16)
[2021-05-22] MEDS: diPHENhydraMINE IV 50 MG/ML 1 ml VIAL (BENADRYL) IV PRN (19:35)
[2021-05-23] MEDS: diPHENhydraMINE IV 50 MG/ML 1 ml VIAL (BENADRYL) IV PRN (02:10)
[2021-05-23] MEDS: ceFAZolin 2 GM in NS PREMIX 2 GM/100 ML BAG IVPB SCH ×3 (04:26→19:46)
[2021-05-23] MEDS: Heparin 5000 UNITS/ML 1 mL VIAL SUBCUT SCH (05:48)
[2021-05-23 07:35] LABS: ABS Basophils 0.1 10^3/ul (0-0.2); ABS Eosinophils 0.2 10^3/ul (0-0.6); ABS Lymphocytes 1.8 10^3/ul (1.0-4.8); ABS Monocytes 0.6 10^3/ul (0-0.8); ABS Neutrophils 3.5 10^3/ul (1.5-7.7); Eosinophil % 3.8 %; Hematocrit 34 % (42-52); Hemoglobin 11.4 g/dL (14.0-18.0); Lymphocyte % 28.7 %; Mean Corpuscular HGB Conc 34 g/dL (31-36); Mean Corpuscular Hemoglobin 26 pg (27-31); Mean Corpuscular Volume 76 fL (80-94); Mean Platelet Volume 8.9 fL (7.4-10.4); Platelet Count 201 10^3/uL (150-450); Red Blood Count 4.42 10^6 /uL (4.18-5.48); Red Cell Distribution Width 15 % (10-15); White Blood Count 6.1 10^3/uL (3.5-10.8)
[2021-05-23 07:54] LABS: Calcium 9.3 mg/dL (8.6-10.3); EGFR African American 86.9 (>60); EGFR Non-African American 71.8 (>60); Magnesium 1.8 mg/dL (1.9-2.7)
[2021-05-23] MEDS: Senna TAB 8.6 mg TAB PO SCH (09:18)
[2021-05-23] MEDS: ROSUVASTATIN 20 MG PO SCH (09:18)
[2021-05-23 10:32] LABS: C Reactive Protein 17.52 mg/L (<8.01)
[2021-05-23] MEDS ORDERED: Dextrose 50% Syringe 50 ml 25 GM/50 ML SYRINGE IV PUSH PRN (20:38)
[2021-05-24] MEDS: ceFAZolin 2 GM in NS PREMIX 2 GM/100 ML BAG IVPB SCH ×2 (03:52→11:42)
[2021-05-24] MEDS ORDERED: Vancomycin Trough Check NOTE FOLLOW UP ONE (04:30)
[2021-05-24] MEDS: Senna TAB 8.6 mg TAB PO SCH (07:14)
[2021-05-24] MEDS: ROSUVASTATIN 20 MG PO SCH (07:14)
[2021-05-24 07:56] LABS: Hematocrit 32 % (42-52); Hemoglobin 10.6 g/dL (14.0-18.0); Mean Corpuscular HGB Conc 34 g/dL (31-36); Mean Corpuscular Hemoglobin 26 pg (27-31); Mean Corpuscular Volume 76 fL (80-94); Mean Platelet Volume 9.1 fL (7.4-10.4); Platelet Count 174 10^3/uL (150-450); Red Blood Count 4.13 10^6 /uL (4.18-5.48); Red Cell Distribution Width 16 % (10-15); White Blood Count 4.4 10^3/uL (3.5-10.8)
[2021-05-24 08:01] LABS: INR 1.27 (0.86-1.15)
[2021-05-24 08:15] LABS: Calcium 9.1 mg/dL (8.6-10.3); EGFR African American 92.8 (>60); EGFR Non-African American 76.7 (>60); Magnesium 1.8 mg/dL (1.9-2.7); Phosphorus 4.2 mg/dL (2.5-5.0); Potassium 3.8 mmol/L (3.5-5.0)
[2021-05-24] MEDS: Morphine 2 MG/ML SYRINGE IV PRN ×3 (10:55→16:28)
[2021-05-24] MEDS ORDERED: Vancomycin per Pharmacy 1 EA NOTE FOLLOW UP PRN (12:41)
[2021-05-24] MEDS: Vancomycin 1,500 MG in NS 0.9% 250 ml 250 ML IVPB SCH (14:16)
[2021-05-24] MEDS ORDERED: Morphine 4 MG/ML VIAL (1 ml) ONE (16:26)
[2021-05-24] MEDS ORDERED: ROPIVACAINE 5 MG/ML 30 ML BTL (0.5%) ONE (16:36)
[2021-05-24] MEDS ORDERED: Midazolam 5 mg/5 ml VIAL 1 mg/ml 5 ml VIAL (5 mg) ONE (17:59)
[2021-05-24] MEDS ORDERED: fentaNYL 250 mcg/5 ml 50 MCG/ML 5 ml VIAL (250 MCG) ONE (17:59)
[2021-05-24] MEDS ORDERED: Ketamine HCL 50 mg/ml 10 ml VIAL (500 MG) ONE (18:00)
[2021-05-24] MEDS ORDERED: Propofol 10 MG/ML 20 ML BTL ONE (18:00)
[2021-05-24] MEDS ORDERED: Rocuronium 50 mg VIAL 10 mg/ml 5 ml VIAL (50 mg) ONE (18:00)
[2021-05-24] MEDS ORDERED: Lidocaine 2% PF 5 ML VIAL ONE (18:00)
[2021-05-24] MEDS ORDERED: Ondansetron 4 mg VIAL 2 MG/ML 2 ml VIAL ONE (18:00)
[2021-05-24] MEDS ORDERED: HYDROmorphone 1 MG/1 ML SYRINGE ONE ×3 (18:56→19:56)
[2021-05-24] MEDS ORDERED: Metoprolol Tartrate 5 mg VIAL 5 ml VIAL (1 mg/ml) ONE (19:16)
[2021-05-24] MEDS ORDERED: fentaNYL 100 mcg/2 ml 50 MCG/ML VIAL ONE (19:36)
[2021-05-24] MEDS ORDERED: Acetaminophen IV 1 GM/100ML 100 ML IV ONE (19:57)
[2021-05-24] MEDS ORDERED: fentaNYL 100 mcg/2 ml 50 MCG/ML VIAL IV PRN (20:08)
[2021-05-24] MEDS ORDERED: DiMENhydriNATE IV 50 mg/ml 1 ml VIAL IV PUSH PRN (20:08)
[2021-05-24] MEDS ORDERED: Naloxone 0.4 mg VIAL 0.4 mg/ml 1 ml VIAL IV PRN (20:08)
[2021-05-24] MEDS ORDERED: Ondansetron 4 mg VIAL 2 MG/ML 2 ml VIAL IV PRN (20:08)
[2021-05-24] MEDS ORDERED: HYDROmorphone 1 MG/1 ML SYRINGE IV PRN (20:08)
[2021-05-24] MEDS ORDERED: Potassium Chlor 20 meq TAB.ER PO ONE (21:00)
[2021-05-25] MEDS: Vancomycin 1,500 MG in NS 0.9% 250 ml 250 ML IVPB SCH ×2 (01:03→12:31)
[2021-05-25] MEDS: Morphine 2 MG/ML SYRINGE IV PRN ×3 (03:46→10:41)
[2021-05-25 06:26] LABS: Hematocrit 30 % (42-52); Hemoglobin 10.3 g/dL (14.0-18.0); Mean Corpuscular HGB Conc 34 g/dL (31-36); Mean Corpuscular Hemoglobin 26 pg (27-31); Mean Corpuscular Volume 77 fL (80-94); Platelet Count 168 10^3/uL (150-450); Red Blood Count 3.96 10^6 /uL (4.18-5.48); Red Cell Distribution Width 16 % (10-15); White Blood Count 7.9 10^3/uL (3.5-10.8)
[2021-05-25 06:45] LABS: Calcium 8.8 mg/dL (8.6-10.3); EGFR African American 104.5 (>60); EGFR Non-African American 86.4 (>60); Magnesium 1.6 mg/dL (1.9-2.7); Phosphorus 3.1 mg/dL (2.5-5.0); Potassium 3.9 mmol/L (3.5-5.0)
[2021-05-25] MEDS ORDERED: Magnesium Sulfate 2 gm BAG 2 GM/50 ML BAG IVPB ONE (06:57)
[2021-05-25] MEDS: ROSUVASTATIN 20 MG PO SCH (08:08)
[2021-05-25] MEDS: Senna TAB 8.6 mg TAB PO SCH (08:09)
[2021-05-25 08:35] LABS: C Reactive Protein 19.03 mg/L (<8.01)
[2021-05-25] MEDS ORDERED: HYDROmorphone 0.5 MG/0.5 ML SYRINGE IV SLOW PU PRN (12:16)
[2021-05-25] MEDS: Polyethylene Glycol 3350 17 GM PACKET PO SCH (13:09)
[2021-05-25] MEDS ORDERED: Enoxaparin 40 MG/0.4 ML SYR SUBCUT SCH (21:00)
[2021-05-26] MEDS: Vancomycin 1,500 MG in NS 0.9% 250 ml 250 ML IVPB SCH ×2 (00:25→14:22)
[2021-05-26 05:27] LABS: Hematocrit 28 % (42-52); Hemoglobin 9.3 g/dL (14.0-18.0); Mean Corpuscular HGB Conc 34 g/dL (31-36); Mean Corpuscular Hemoglobin 26 pg (27-31); Mean Corpuscular Volume 77 fL (80-94); Mean Platelet Volume 8.8 fL (7.4-10.4); Platelet Count 148 10^3/uL (150-450); Red Cell Distribution Width 16 % (10-15); White Blood Count 7.2 10^3/uL (3.5-10.8)
[2021-05-26 05:46] LABS: Albumin 3.5 g/dL (3.2-5.2); Albumin/Globulin Ratio 1.2 (1-3); Calcium 8.6 mg/dL (8.6-10.3); EGFR African American 94.9 (>60); EGFR Non-African American 78.5 (>60); Globulin 2.9 g/dL (2-4); Magnesium 1.8 mg/dL (1.9-2.7); Phosphorus 3.4 mg/dL (2.5-5.0); Potassium 3.9 mmol/L (3.5-5.0); Total Bilirubin 0.6 mg/dL (0.2-1.0); Total Protein 6.4 g/dL (6.4-8.9)
[2021-05-26] MEDS: Senna TAB 8.6 mg TAB PO SCH (09:49)
[2021-05-26] MEDS: Polyethylene Glycol 3350 17 GM PACKET PO SCH (09:50)
[2021-05-26] MEDS: ROSUVASTATIN 20 MG PO SCH (09:51)
[2021-05-26] MEDS ORDERED: Vancomycin Trough Check NOTE FOLLOW UP ONE (12:30)
[2021-05-26 13:12] LABS: EGFR African American 99.5 (>60); EGFR Non-African American 82.3 (>60)
[2021-05-26 13:15] LABS: INR 3.86 (0.86-1.15)
[2021-05-26 13:59] LABS: Vancomycin Trough 10.7 mcg/mL
[2021-05-27] MEDS: Vancomycin 1,500 MG in NS 0.9% 250 ml 250 ML IVPB SCH (00:47)
[2021-05-27 05:48] LABS: Hematocrit 26 % (42-52); Hemoglobin 8.4 g/dL (14.0-18.0); Mean Corpuscular HGB Conc 33 g/dL (31-36); Mean Corpuscular Hemoglobin 26 pg (27-31); Mean Corpuscular Volume 78 fL (80-94); Platelet Count 138 10^3/uL (150-450); Red Blood Count 3.29 10^6 /uL (4.18-5.48); Red Cell Distribution Width 16 % (10-15); White Blood Count 4.2 10^3/uL (3.5-10.8)
[2021-05-27 06:02] LABS: Albumin 3.3 g/dL (3.2-5.2); Albumin/Globulin Ratio 1.1 (1-3); Calcium 8.7 mg/dL (8.6-10.3); EGFR African American 93.9 (>60); EGFR Non-African American 77.6 (>60); Globulin 2.9 g/dL (2-4); Magnesium 1.8 mg/dL (1.9-2.7); Phosphorus 4.3 mg/dL (2.5-5.0); Total Bilirubin 0.4 mg/dL (0.2-1.0); Total Protein 6.2 g/dL (6.4-8.9)
[2021-05-27] MEDS: Senna TAB 8.6 mg TAB PO SCH (09:09)
[2021-05-27] MEDS: Polyethylene Glycol 3350 17 GM PACKET PO SCH (09:10)
[2021-05-27] MEDS: ROSUVASTATIN 20 MG PO SCH (09:10)
[2021-05-27 11:26] LABS: Hematocrit 29 % (42-52); Hemoglobin 9.5 g/dL (14.0-18.0)
[2021-05-27 11:45] LABS: INR 7.34 (0.86-1.15)
[2021-05-27] MEDS ORDERED: Phytonadione Oral Solution 5 MG/25 ML UDC PO ONE (12:06)
[2021-05-27] MEDS ORDERED: Vancomycin 1,500 MG in NS 0.9% 250 ml 250 ML IVPB SCH (16:00)
[2021-05-28] MEDS ORDERED: Vancomycin 1,500 MG in NS 0.9% 250 ml 250 ML IVPB SCH (01:00)
[2021-05-28 06:19] LABS: Hematocrit 27 % (42-52); Hemoglobin 9.1 g/dL (14.0-18.0); Mean Corpuscular HGB Conc 34 g/dL (31-36); Mean Corpuscular Hemoglobin 26 pg (27-31); Mean Corpuscular Volume 77 fL (80-94); Mean Platelet Volume 8.9 fL (7.4-10.4); Platelet Count 170 10^3/uL (150-450); Red Blood Count 3.52 10^6 /uL (4.18-5.48); Red Cell Distribution Width 15 % (10-15); White Blood Count 4.9 10^3/uL (3.5-10.8)
[2021-05-28 06:25] LABS: INR 1.67 (0.86-1.15)
[2021-05-28 06:35] LABS: Calcium 9.1 mg/dL (8.6-10.3); Magnesium 1.6 mg/dL (1.9-2.7); Phosphorus 3.8 mg/dL (2.5-5.0); Potassium 3.8 mmol/L (3.5-5.0)
[2021-05-28] MEDS: Polyethylene Glycol 3350 17 GM PACKET PO SCH (09:22)
[2021-05-28] MEDS: Senna TAB 8.6 mg TAB PO SCH (09:23)
[2021-05-28] MEDS: ROSUVASTATIN 20 MG PO SCH (09:23)
[2021-05-28 11:50] VITALS: BP 118/78
[2021-05-29] MEDS ORDERED: Vancomycin Trough Check NOTE FOLLOW UP ONE (12:30)
== END 2021-05-28 12:15 | disposition home health service (06) | DRG 302 ==
LOC: ED 11:14 → SSU 23:29 → SUATTDRO 23:29
PROVIDERS: ADMIT Internal Medicine; ATTEND Internal Medicine

== ENCOUNTER 2021-07-27 09:51 | Inpatient (IN) ==
[2021-07-27] MEDS ORDERED: Ondansetron 4 mg VIAL 2 MG/ML 2 ml VIAL IV PRN (10:20)
[2021-07-27] MEDS ORDERED: Lactulose 30 ml UDC PO PRN (10:20)
[2021-07-27] MEDS ORDERED: diPHENhydraMINE 25 mg TAB PO PRN (10:20)
[2021-07-27] MEDS ORDERED: Ondansetron ODT 4 mg TAB 4 MG TAB PO PRN (10:20)
[2021-07-27] MEDS ORDERED: diPHENhydraMINE IV 50 MG/ML 1 ml VIAL (BENADRYL) IV PRN ×2 (10:20→20:32)
[2021-07-27] MEDS ORDERED: Magnesium Hydroxide LIQ 30 ML UDC PO PRN (10:20)
[2021-07-27] MEDS ORDERED: Lactated Ringers 1000 ml BAG 1,000 ML IV SCH (11:00)
[2021-07-27] MEDS: Morphine 2 MG/ML SYRINGE IV PRN ×2 (11:13→23:29)
[2021-07-27 11:41] LABS: ABS Eosinophils 0.1 10^3/ul (0-0.6); ABS Lymphocytes 1.6 10^3/ul (1.0-4.8); ABS Monocytes 0.6 10^3/ul (0-0.8); ABS Neutrophils 2.2 10^3/ul (1.5-7.7); Hematocrit 37 % (42-52); Hemoglobin 12.3 g/dL (14.0-18.0); Lymphocyte % 35.2 %; Mean Corpuscular HGB Conc 33 g/dL (31-36); Mean Corpuscular Hemoglobin 25 pg (27-31); Mean Corpuscular Volume 75 fL (80-94); Mean Platelet Volume 8.7 fL (7.4-10.4); Nucleated Red Blood Cells % 0.1; Platelet Count 201 10^3/uL (150-450); Red Blood Count 5.01 10^6 /uL (4.18-5.48); Red Cell Distribution Width 17 % (10-15); White Blood Count 4.5 10^3/uL (3.5-10.8)
[2021-07-27 11:56] LABS: C Reactive Protein 1.56 mg/L (<8.01); Calcium 10.2 mg/dL (8.6-10.3); Potassium 3.8 mmol/L (3.5-5.0)
[2021-07-27 12:00] LABS: Rapid COVID-19 Molecular Undetected (Undetected)
[2021-07-27] MEDS ORDERED: Albuterol HFA INHALER 8 gm MDI INH PRN ×2 (12:01→15:10)
[2021-07-27] MEDS ORDERED: Albuterol/Ipratropium NEB.SOL (2.5/0.5 MG) 3 ML NEB.SOLN INH PRN (12:01)
[2021-07-27] MEDS ORDERED: Dextrose 50% Syringe 50 ml 25 GM/50 ML SYRINGE IV PUSH PRN (12:14)
[2021-07-27 13:48] LABS: Erythrocyte Sed Rate 21 mm/Hr (0-19)
[2021-07-27] MEDS ORDERED: Povidone Iodine 5% OPTH 30 ML BTL ONE (14:38)
[2021-07-27] MEDS ORDERED: Vancomycin 1,000 MG VIAL ONE (14:38)
[2021-07-27] MEDS ORDERED: Tobramycin POWDER 1.2 GM VIAL ONE ×2 (14:40)
[2021-07-27] MEDS ORDERED: Bupivacaine 0.5% SDV PF 30ML VIAL ONE ×2 (14:47→19:49)
[2021-07-27] MEDS ORDERED: Midazolam 2 mg/2 ml VIAL 1 mg/ml 2 ml VIAL (2 mg) ONE (15:53)
[2021-07-27] MEDS ORDERED: fentaNYL 100 mcg/2 ml 50 MCG/ML VIAL ONE ×2 (15:53→17:39)
[2021-07-27] MEDS ORDERED: Rocuronium 50 mg VIAL 10 mg/ml 5 ml VIAL (50 mg) ONE (15:53)
[2021-07-27] MEDS ORDERED: Propofol 10 MG/ML 20 ML BTL ONE (15:56)
[2021-07-27] MEDS ORDERED: Lidocaine 2% PF 5 ML VIAL ONE (15:56)
[2021-07-27] MEDS ORDERED: Dexamethasone IV 4 MG/ML VIAL 1 ml VIAL ONE (17:35)
[2021-07-27] MEDS ORDERED: Sevoflurane BOTTLE ONE (17:53)
[2021-07-27] MEDS ORDERED: HYDROmorphone 1 MG/1 ML SYRINGE ONE ×4 (18:07→20:37)
[2021-07-27] MEDS ORDERED: Ketamine HCL 50 mg/ml 10 ml VIAL (500 MG) ONE (18:17)
[2021-07-27] MEDS ORDERED: Labetalol IV 5 MG/ML 20 ml VIAL ONE (18:31)
[2021-07-27] MEDS ORDERED: Dexmedetomidine 200 mcg/2 ml 2 ml VIAL (200 mcg) ONE (18:33)
[2021-07-27] MEDS ORDERED: DAPTOmycin SDV 500 MG in NS 0.9% 50 ML 50 ML IVPB SCH (19:00)
[2021-07-27] MEDS ORDERED: Ondansetron 4 mg VIAL 2 MG/ML 2 ml VIAL ONE (19:08)
[2021-07-27] MEDS ORDERED: Acetaminophen IV 1 GM/100ML 100 ML IV ONE ×2 (20:28→20:32)
[2021-07-27] MEDS ORDERED: Naloxone 0.4 mg VIAL 0.4 mg/ml 1 ml VIAL IV PRN (20:32)
[2021-07-27] MEDS ORDERED: DiMENhydriNATE IV 50 mg/ml 1 ml VIAL IV PUSH PRN (20:32)
[2021-07-27] MEDS: HYDROmorphone 1 MG/1 ML SYRINGE IV PRN ×2 (20:37→21:00)
[2021-07-27] MEDS ORDERED: CLONIDINE HCL 0.2 MG PO SCH (21:00)
[2021-07-27] MEDS ORDERED: OMEPRAZOLE MAGNESIUM 20 MG PO SCH (21:00)
[2021-07-27] MEDS: Magnesium Hydroxide LIQ 30 ML UDC PO SCH (23:33)
[2021-07-27] MEDS: DAPTOmycin SDV 500 MG in NS 0.9% 50 ML 50 ML IVPB SCH (23:37)
[2021-07-28 06:20] LABS: ABS Monocytes 0.8 10^3/ul (0-0.8); ABS Neutrophils 5.2 10^3/ul (1.5-7.7); Eosinophil % 0.1 %; Hematocrit 36 % (42-52); Hemoglobin 11.7 g/dL (14.0-18.0); Lymphocyte % 14.3 %; Mean Corpuscular HGB Conc 33 g/dL (31-36); Mean Corpuscular Hemoglobin 25 pg (27-31); Mean Corpuscular Volume 76 fL (80-94); Mean Platelet Volume 8.5 fL (7.4-10.4); Platelet Count 201 10^3/uL (150-450); Red Blood Count 4.69 10^6 /uL (4.18-5.48); Red Cell Distribution Width 17 % (10-15)
[2021-07-28 06:41] LABS: Calcium 9.1 mg/dL (8.6-10.3); Potassium 4.2 mmol/L (3.5-5.0)
[2021-07-28 07:57] LABS: C Reactive Protein 7.35 mg/L (<8.01)
[2021-07-28] MEDS: Tiotropium Brom/Olodaterol MDI INH SCH (08:19)
[2021-07-28] MEDS ORDERED: Rosuvastatin 40 mg TAB (NF) PO SCH (09:00)
[2021-07-28] MEDS ORDERED: Umeclidin/Vilant 62.5 MDI 62.5/25 mcg 14 INH ELLIPTA DEVICE INH SCH (09:00)
[2021-07-28] MEDS: Multivitamins/Minerals TAB PO SCH (09:02)
[2021-07-28] MEDS: Vitamin THERAPEUTIC TAB PO SCH (09:03)
[2021-07-28] MEDS: Magnesium Hydroxide LIQ 30 ML UDC PO SCH ×2 (09:03→21:13)
[2021-07-28] MEDS ORDERED: Morphine ER 15 mg TAB ** extended release PO SCH (11:00)
[2021-07-28] MEDS: DAPTOmycin SDV 500 MG in NS 0.9% 50 ML 50 ML IVPB SCH (17:48)
[2021-07-28] MEDS: Morphine 2 MG/ML SYRINGE IV PRN (17:48)
[2021-07-28] MEDS ORDERED: HYDROmorphone 1 MG/1 ML SYRINGE IV SLOW PU PRN (19:36)
[2021-07-28] MEDS: Morphine ER 30 mg TAB ** extended release PO SCH (20:22)
[2021-07-29 05:50] LABS: ABS Lymphocytes 1.4 10^3/ul (1.0-4.8); ABS Monocytes 0.8 10^3/ul (0-0.8); ABS Neutrophils 3.8 10^3/ul (1.5-7.7); Eosinophil % 0.8 %; Hematocrit 34 % (42-52); Lymphocyte % 23.1 %; Mean Corpuscular HGB Conc 33 g/dL (31-36); Mean Corpuscular Hemoglobin 25 pg (27-31); Mean Corpuscular Volume 76 fL (80-94); Platelet Count 166 10^3/uL (150-450); Red Blood Count 4.48 10^6 /uL (4.18-5.48); Red Cell Distribution Width 17 % (10-15); White Blood Count 6.1 10^3/uL (3.5-10.8)
[2021-07-29 06:12] LABS: Calcium 8.8 mg/dL (8.6-10.3); Potassium 3.8 mmol/L (3.5-5.0)
[2021-07-29] MEDS: Morphine ER 30 mg TAB ** extended release PO SCH ×2 (08:30→20:49)
[2021-07-29] MEDS: Multivitamins/Minerals TAB PO SCH (08:30)
[2021-07-29] MEDS: Magnesium Hydroxide LIQ 30 ML UDC PO SCH ×2 (08:31→21:23)
[2021-07-29] MEDS: Vitamin THERAPEUTIC TAB PO SCH (08:31)
[2021-07-29] MEDS: Tiotropium Brom/Olodaterol MDI INH SCH (08:37)
[2021-07-29] MEDS: DAPTOmycin SDV 500 MG in NS 0.9% 50 ML 50 ML IVPB SCH (17:50)
[2021-07-30] MEDS: Tiotropium Brom/Olodaterol MDI INH SCH (09:03)
[2021-07-30] MEDS: Multivitamins/Minerals TAB PO SCH (10:12)
[2021-07-30] MEDS: Morphine ER 30 mg TAB ** extended release PO SCH ×2 (10:12→21:37)
[2021-07-30] MEDS: Vitamin THERAPEUTIC TAB PO SCH (10:13)
[2021-07-30] MEDS: Magnesium Hydroxide LIQ 30 ML UDC PO SCH ×2 (10:16→21:36)
[2021-07-30] MEDS: DAPTOmycin SDV 500 MG in NS 0.9% 50 ML 50 ML IVPB SCH (16:40)
[2021-07-30] MEDS ORDERED: Lactated Ringers 1000 ml BAG 1,000 ML IV SCH (17:00)
[2021-07-31] MEDS: Tiotropium Brom/Olodaterol MDI INH SCH (08:08)
[2021-07-31] MEDS: Vitamin THERAPEUTIC TAB PO SCH (09:02)
[2021-07-31] MEDS: Multivitamins/Minerals TAB PO SCH (09:02)
[2021-07-31] MEDS: Morphine ER 30 mg TAB ** extended release PO SCH ×2 (09:03→20:27)
[2021-07-31] MEDS: Magnesium Hydroxide LIQ 30 ML UDC PO SCH ×2 (09:03→20:24)
[2021-07-31] MEDS: DAPTOmycin SDV 500 MG in NS 0.9% 50 ML 50 ML IVPB SCH (18:00)
[2021-08-01] MEDS: Magnesium Hydroxide LIQ 30 ML UDC PO SCH ×2 (07:55→23:07)
[2021-08-01] MEDS: Morphine ER 30 mg TAB ** extended release PO SCH ×2 (07:56→23:03)
[2021-08-01] MEDS: Multivitamins/Minerals TAB PO SCH (07:56)
[2021-08-01] MEDS: Vitamin THERAPEUTIC TAB PO SCH (07:56)
[2021-08-01] MEDS: Tiotropium Brom/Olodaterol MDI INH SCH (08:27)
[2021-08-01] MEDS: DAPTOmycin SDV 500 MG in NS 0.9% 50 ML 50 ML IVPB SCH (16:33)
[2021-08-02] MEDS: Morphine ER 30 mg TAB ** extended release PO SCH ×2 (08:56→20:55)
[2021-08-02] MEDS: Multivitamins/Minerals TAB PO SCH (08:56)
[2021-08-02] MEDS: Magnesium Hydroxide LIQ 30 ML UDC PO SCH ×2 (08:58→20:57)
[2021-08-02] MEDS: Vitamin THERAPEUTIC TAB PO SCH (08:59)
[2021-08-02] MEDS: Tiotropium Brom/Olodaterol MDI INH SCH (09:29)
[2021-08-02] MEDS: DAPTOmycin SDV 500 MG in NS 0.9% 50 ML 50 ML IVPB SCH (16:08)
[2021-08-03] MEDS ORDERED: Iodixanol (CONTRAST) 320 MG/ML 100 ML SDV IV SCH (09:26)
[2021-08-03 09:46] LABS: ABS Basophils 0.1 10^3/ul (0-0.2); ABS Eosinophils 0.2 10^3/ul (0-0.6); ABS Lymphocytes 1.4 10^3/ul (1.0-4.8); ABS Monocytes 0.7 10^3/ul (0-0.8); ABS Neutrophils 2.7 10^3/ul (1.5-7.7); Eosinophil % 3.5 %; Hematocrit 27 % (42-52); Hemoglobin 8.5 g/dL (14.0-18.0); Lymphocyte % 27.5 %; Mean Corpuscular HGB Conc 32 g/dL (31-36); Mean Corpuscular Hemoglobin 24 pg (27-31); Mean Corpuscular Volume 75 fL (80-94); Mean Platelet Volume 8.1 fL (7.4-10.4); Platelet Count 250 10^3/uL (150-450); Red Blood Count 3.53 10^6 /uL (4.18-5.48); Red Cell Distribution Width 16 % (10-15); White Blood Count 4.9 10^3/uL (3.5-10.8)
[2021-08-03] MEDS: Tiotropium Brom/Olodaterol MDI INH SCH (09:55)
[2021-08-03 10:07] LABS: ALT 8 U/L (7-52); AST 10 U/L (13-39); Albumin 3.4 g/dL (3.2-5.2); Albumin/Globulin Ratio 1.1 (1-3); Alkaline Phosphatase 73 U/L (35-149); Anion Gap 5 mmol/L (2-11); Blood Urea Nitrogen 14 mg/dL (6-24); CO2 Carbon Dioxide 30 mmol/L (22-32); Calcium 9.3 mg/dL (8.6-10.3); Chloride 101 mmol/L (101-111); Glucose 133 mg/dL (70-100); Magnesium 2.1 mg/dL (1.9-2.7); Potassium 4.7 mmol/L (3.5-5.0); Sodium 136 mmol/L (135-145); Total Protein 6.4 g/dL (6.4-8.9)
[2021-08-03] MEDS ORDERED: NS 0.9% 500 ml BAG 500 ML IV SCH (11:00)
[2021-08-03] MEDS: Morphine ER 30 mg TAB ** extended release PO SCH ×2 (11:28→20:05)
[2021-08-03] MEDS: Multivitamins/Minerals TAB PO SCH (11:28)
[2021-08-03] MEDS: Vitamin THERAPEUTIC TAB PO SCH (11:30)
[2021-08-03] MEDS: Magnesium Hydroxide LIQ 30 ML UDC PO SCH ×2 (11:31→20:04)
[2021-08-03 13:02] LABS: ABS Eosinophils 0.1 10^3/ul (0-0.6); ABS Lymphocytes 1.2 10^3/ul (1.0-4.8); ABS Monocytes 0.6 10^3/ul (0-0.8); ABS Neutrophils 3.4 10^3/ul (1.5-7.7); Eosinophil % 2.8 %; Hematocrit 29 % (42-52); Hemoglobin 9.3 g/dL (14.0-18.0); Lymphocyte % 21.5 %; Mean Corpuscular HGB Conc 33 g/dL (31-36); Mean Corpuscular Hemoglobin 25 pg (27-31); Mean Corpuscular Volume 75 fL (80-94); Mean Platelet Volume 8.2 fL (7.4-10.4); Nucleated Red Blood Cells % 0.1; Platelet Count 271 10^3/uL (150-450); Red Blood Count 3.81 10^6 /uL (4.18-5.48); Red Cell Distribution Width 16 % (10-15); White Blood Count 5.4 10^3/uL (3.5-10.8)
[2021-08-03 13:16] LABS: % Iron Saturation 11 % (15-55); Iron 29 ug/dL (50-212); Total Iron Binding Capacity 265 mcg/dL (250-450); Transferrin 189 mg/dL (203-362); Unsaturated Iron Binding < 250 ug/dL
[2021-08-03 13:38] LABS: Ferritin 115.4 ng/mL (24-336)
[2021-08-03 13:41] LABS: Folate 14.32 ng/mL (5.90-24.80)
[2021-08-03 13:42] LABS: Vitamin B12 283 pg/mL (180-914)
[2021-08-03] MEDS: DAPTOmycin SDV 500 MG in NS 0.9% 50 ML 50 ML IVPB SCH (20:06)
[2021-08-04 06:18] LABS: ABS Basophils 0.1 10^3/ul (0-0.2); ABS Eosinophils 0.2 10^3/ul (0-0.6); ABS Lymphocytes 1.1 10^3/ul (1.0-4.8); ABS Monocytes 0.6 10^3/ul (0-0.8); ABS Neutrophils 2.3 10^3/ul (1.5-7.7); Eosinophil % 4.6 %; Hematocrit 26 % (42-52); Hemoglobin 8.5 g/dL (14.0-18.0); Lymphocyte % 26.4 %; Mean Corpuscular HGB Conc 33 g/dL (31-36); Mean Corpuscular Hemoglobin 25 pg (27-31); Mean Corpuscular Volume 75 fL (80-94); Mean Platelet Volume 8.2 fL (7.4-10.4); Nucleated Red Blood Cells % 0.1; Platelet Count 228 10^3/uL (150-450); Red Blood Count 3.42 10^6 /uL (4.18-5.48); Red Cell Distribution Width 16 % (10-15); White Blood Count 4.3 10^3/uL (3.5-10.8)
[2021-08-04 06:43] LABS: Calcium 8.7 mg/dL (8.6-10.3)
[2021-08-04] MEDS: Tiotropium Brom/Olodaterol MDI INH SCH (08:30)
[2021-08-04] MEDS: Multivitamins/Minerals TAB PO SCH (11:46)
[2021-08-04] MEDS: Vitamin THERAPEUTIC TAB PO SCH (11:46)
[2021-08-04] MEDS: Magnesium Hydroxide LIQ 30 ML UDC PO SCH ×2 (11:48→23:14)
[2021-08-04] MEDS: Morphine ER 30 mg TAB ** extended release PO SCH ×2 (11:55→23:09)
[2021-08-04] MEDS ORDERED: Midazolam 5 mg/5 ml VIAL 1 mg/ml 5 ml VIAL (5 mg) ONE ×2 (13:12→13:13)
[2021-08-04] MEDS ORDERED: fentaNYL 100 mcg/2 ml 50 MCG/ML VIAL ONE (13:13)
[2021-08-04] MEDS ORDERED: Naloxone 0.4 mg VIAL 0.4 mg/ml 1 ml VIAL ONE (13:13)
[2021-08-04] MEDS ORDERED: Flumazenil 0.5 mg/5 ml 0.1 MG/ML 5 ml VIAL ONE (13:13)
[2021-08-04] MEDS: DAPTOmycin SDV 500 MG in NS 0.9% 50 ML 50 ML IVPB SCH (23:33)
[2021-08-05 06:58] LABS: ABS Eosinophils 0.2 10^3/ul (0-0.6); ABS Lymphocytes 1.2 10^3/ul (1.0-4.8); ABS Monocytes 0.6 10^3/ul (0-0.8); ABS Neutrophils 2.8 10^3/ul (1.5-7.7); Eosinophil % 3.2 %; Hematocrit 26 % (42-52); Hemoglobin 8.7 g/dL (14.0-18.0); Lymphocyte % 25.7 %; Mean Corpuscular HGB Conc 34 g/dL (31-36); Mean Corpuscular Hemoglobin 25 pg (27-31); Mean Corpuscular Volume 74 fL (80-94); Mean Platelet Volume 7.5 fL (7.4-10.4); Platelet Count 255 10^3/uL (150-450); Red Blood Count 3.51 10^6 /uL (4.18-5.48); Red Cell Distribution Width 16 % (10-15); White Blood Count 4.8 10^3/uL (3.5-10.8)
[2021-08-05 07:18] LABS: Calcium 8.8 mg/dL (8.6-10.3); Potassium 4.1 mmol/L (3.5-5.0)
[2021-08-05] MEDS: Tiotropium Brom/Olodaterol MDI INH SCH (08:37)
[2021-08-05] MEDS: Multivitamins/Minerals TAB PO SCH (09:54)
[2021-08-05] MEDS: Vitamin THERAPEUTIC TAB PO SCH (09:54)
[2021-08-05] MEDS: Morphine ER 30 mg TAB ** extended release PO SCH ×2 (09:54→21:39)
[2021-08-05] MEDS: Magnesium Hydroxide LIQ 30 ML UDC PO SCH ×2 (09:55→21:41)
[2021-08-05 11:35] LABS: C Reactive Protein 56.47 mg/L (<8.01)
[2021-08-05] MEDS: DAPTOmycin SDV 500 MG in NS 0.9% 50 ML 50 ML IVPB SCH (16:52)
[2021-08-06] MEDS: Tiotropium Brom/Olodaterol MDI INH SCH (07:42)
[2021-08-06] MEDS: Multivitamins/Minerals TAB PO SCH (08:58)
[2021-08-06] MEDS: Vitamin THERAPEUTIC TAB PO SCH (08:58)
[2021-08-06] MEDS: Morphine ER 30 mg TAB ** extended release PO SCH ×2 (08:58→22:00)
[2021-08-06] MEDS: Magnesium Hydroxide LIQ 30 ML UDC PO SCH ×2 (09:09→22:05)
[2021-08-06] MEDS: DAPTOmycin SDV 500 MG in NS 0.9% 50 ML 50 ML IVPB SCH (17:19)
[2021-08-07] MEDS: Tiotropium Brom/Olodaterol MDI INH SCH (08:13)
[2021-08-07] MEDS: Multivitamins/Minerals TAB PO SCH (09:17)
[2021-08-07] MEDS: Vitamin THERAPEUTIC TAB PO SCH (09:17)
[2021-08-07] MEDS: Morphine ER 30 mg TAB ** extended release PO SCH ×2 (09:18→23:11)
[2021-08-07] MEDS: Magnesium Hydroxide LIQ 30 ML UDC PO SCH ×2 (10:03→23:13)
[2021-08-07] MEDS: DAPTOmycin SDV 500 MG in NS 0.9% 50 ML 50 ML IVPB SCH (18:40)
[2021-08-08 07:31] LABS: ABS Eosinophils 0.1 10^3/ul (0-0.6); ABS Lymphocytes 1.2 10^3/ul (1.0-4.8); ABS Monocytes 0.5 10^3/ul (0-0.8); ABS Neutrophils 2.6 10^3/ul (1.5-7.7); Eosinophil % 2.8 %; Hematocrit 26 % (42-52); Hemoglobin 8.6 g/dL (14.0-18.0); Lymphocyte % 26.4 %; Mean Corpuscular HGB Conc 34 g/dL (31-36); Mean Corpuscular Hemoglobin 25 pg (27-31); Mean Corpuscular Volume 75 fL (80-94); Mean Platelet Volume 8.2 fL (7.4-10.4); Platelet Count 222 10^3/uL (150-450); Red Blood Count 3.43 10^6 /uL (4.18-5.48); Red Cell Distribution Width 17 % (10-15); White Blood Count 4.4 10^3/uL (3.5-10.8)
[2021-08-08 07:41] LABS: Calcium 9.1 mg/dL (8.6-10.3)
[2021-08-08] MEDS: Magnesium Hydroxide LIQ 30 ML UDC PO SCH (07:55)
[2021-08-08] MEDS: Multivitamins/Minerals TAB PO SCH (08:19)
[2021-08-08] MEDS: Vitamin THERAPEUTIC TAB PO SCH (08:20)
[2021-08-08] MEDS: Morphine ER 30 mg TAB ** extended release PO SCH ×2 (08:20→22:01)
[2021-08-08] MEDS: Tiotropium Brom/Olodaterol MDI INH SCH (10:16)
[2021-08-08 10:28] LABS: C Reactive Protein 22.26 mg/L (<8.01)
[2021-08-08] MEDS: DAPTOmycin SDV 500 MG in NS 0.9% 50 ML 50 ML IVPB SCH (17:34)
[2021-08-09] MEDS: Magnesium Hydroxide LIQ 30 ML UDC PO SCH ×2 (01:48→08:47)
[2021-08-09 08:38] VITALS: BP 106/61
[2021-08-09] MEDS: Tiotropium Brom/Olodaterol MDI INH SCH (08:38)
[2021-08-09] MEDS: Vitamin THERAPEUTIC TAB PO SCH (08:45)
[2021-08-09] MEDS: Morphine ER 30 mg TAB ** extended release PO SCH (08:45)
[2021-08-09] MEDS: Multivitamins/Minerals TAB PO SCH (08:46)
== END 2021-08-09 12:30 | disposition home or self-care (01) | DRG 302 ==
LOC: ED 09:51 → AA 10:20 → ED 14:36 → MEDTELE 21:37
PROVIDERS: ADMIT Orthopaedic Surgery; ATTEND Orthopaedic Surgery

== ENCOUNTER 2021-08-13 03:13 | Inpatient (IN) ==
[2021-08-13] MEDS ORDERED: Morphine 4 MG/ML VIAL (1 ml) IV ONE (03:58)
[2021-08-13] MEDS: DAPTOmycin SDV 500 MG in NS 0.9% 50 ML 50 ML IVPB SCH (04:43)
[2021-08-13 04:48] LABS: ABS Eosinophils 0.1 10^3/ul (0-0.6); ABS Lymphocytes 1.2 10^3/ul (1.0-4.8); ABS Monocytes 0.5 10^3/ul (0-0.8); ABS Neutrophils 2.3 10^3/ul (1.5-7.7); Eosinophil % 3.6 %; Hematocrit 26 % (42-52); Hemoglobin 8.4 g/dL (14.0-18.0); Lymphocyte % 28.5 %; Mean Corpuscular HGB Conc 33 g/dL (31-36); Mean Corpuscular Hemoglobin 24 pg (27-31); Mean Corpuscular Volume 74 fL (80-94); Mean Platelet Volume 8.5 fL (7.4-10.4); Platelet Count 209 10^3/uL (150-450); Red Blood Count 3.47 10^6 /uL (4.18-5.48); Red Cell Distribution Width 17 % (10-15); White Blood Count 4.2 10^3/uL (3.5-10.8)
[2021-08-13 04:51] LABS: Albumin 3.4 g/dL (3.2-5.2); Potassium 3.8 mmol/L (3.5-5.0); Total Protein 6.3 g/dL (6.4-8.9)
[2021-08-13 04:52] LABS: Albumin/Globulin Ratio 1.2 (1-3); C Reactive Protein 17.25 mg/L (<8.01); Globulin 2.9 g/dL (2-4); Total Bilirubin 0.3 mg/dL (0.2-1.0)
[2021-08-13 07:05] LABS: Rapid COVID-19 Molecular Undetected (Undetected)
[2021-08-13] MEDS ORDERED: Albuterol HFA INHALER 8 gm MDI INH PRN (09:15)
[2021-08-13] MEDS ORDERED: Albuterol/Ipratropium NEB.SOL (2.5/0.5 MG) 3 ML NEB.SOLN INH PRN (09:15)
[2021-08-13] MEDS: Morphine ER 30 mg TAB ** extended release PO PRN (17:18)
[2021-08-14] MEDS: Morphine ER 30 mg TAB ** extended release PO PRN (06:06)
[2021-08-14 06:11] LABS: ABS Basophils 0.1 10^3/ul (0-0.2); ABS Eosinophils 0.2 10^3/ul (0-0.6); ABS Lymphocytes 1.3 10^3/ul (1.0-4.8); ABS Monocytes 0.4 10^3/ul (0-0.8); Eosinophil % 4.1 %; Hematocrit 26 % (42-52); Hemoglobin 8.7 g/dL (14.0-18.0); Lymphocyte % 33.7 %; Mean Corpuscular HGB Conc 33 g/dL (31-36); Mean Corpuscular Hemoglobin 25 pg (27-31); Mean Corpuscular Volume 75 fL (80-94); Mean Platelet Volume 8.2 fL (7.4-10.4); Platelet Count 218 10^3/uL (150-450); Red Blood Count 3.54 10^6 /uL (4.18-5.48); Red Cell Distribution Width 17 % (10-15); White Blood Count 3.9 10^3/uL (3.5-10.8)
[2021-08-14] MEDS: DAPTOmycin SDV 500 MG in NS 0.9% 50 ML 50 ML IVPB SCH (06:43)
[2021-08-14 06:50] LABS: CKMB ng/mL 0.8 ng/mL (0.6-6.3)
[2021-08-14] MEDS: CYANOCOBALAMIN 100 MCG PO SCH (08:01)
[2021-08-14] MEDS: Multivitamins/Minerals TAB PO SCH (08:01)
[2021-08-14] MEDS: TESTOSTERONE CYPIONATE 200 MG/ML IM SCH (08:02)
[2021-08-14] MEDS: Tiotropium Brom/Olodaterol MDI INH SCH (08:12)
[2021-08-14] MEDS ORDERED: TESTOSTERONE CYPIONATE 200 MG/ML IM SCH (09:00)
[2021-08-15] MEDS: DAPTOmycin SDV 500 MG in NS 0.9% 50 ML 50 ML IVPB SCH (05:03)
[2021-08-15 05:17] LABS: ABS Eosinophils 0.2 10^3/ul (0-0.6); ABS Lymphocytes 1.4 10^3/ul (1.0-4.8); ABS Monocytes 0.4 10^3/ul (0-0.8); ABS Neutrophils 1.8 10^3/ul (1.5-7.7); Eosinophil % 4.4 %; Hematocrit 27 % (42-52); Hemoglobin 8.9 g/dL (14.0-18.0); Lymphocyte % 36.6 %; Mean Corpuscular HGB Conc 33 g/dL (31-36); Mean Corpuscular Hemoglobin 24 pg (27-31); Mean Corpuscular Volume 75 fL (80-94); Mean Platelet Volume 8.9 fL (7.4-10.4); Platelet Count 224 10^3/uL (150-450); Red Blood Count 3.64 10^6 /uL (4.18-5.48); Red Cell Distribution Width 17 % (10-15); White Blood Count 3.8 10^3/uL (3.5-10.8)
[2021-08-15 05:33] LABS: Calcium 9.3 mg/dL (8.6-10.3); Magnesium 1.9 mg/dL (1.9-2.7); Potassium 4.1 mmol/L (3.5-5.0)
[2021-08-15] MEDS: Morphine ER 30 mg TAB ** extended release PO PRN ×2 (06:08→17:28)
[2021-08-15 07:59] LABS: C Reactive Protein 7.43 mg/L (<8.01)
[2021-08-15] MEDS: Tiotropium Brom/Olodaterol MDI INH SCH (08:44)
[2021-08-15] MEDS: Multivitamins/Minerals TAB PO SCH (09:05)
[2021-08-15] MEDS: CYANOCOBALAMIN 100 MCG PO SCH (09:06)
[2021-08-16] MEDS: DAPTOmycin SDV 500 MG in NS 0.9% 50 ML 50 ML IVPB SCH (05:04)
[2021-08-16] MEDS: Tiotropium Brom/Olodaterol MDI INH SCH (06:59)
[2021-08-16] MEDS: Multivitamins/Minerals TAB PO SCH (09:25)
[2021-08-16] MEDS: CYANOCOBALAMIN 100 MCG PO SCH (09:27)
[2021-08-16] MEDS: Morphine ER 30 mg TAB ** extended release PO PRN (15:05)
[2021-08-16] MEDS: Morphine ER 30 mg TAB ** extended release PO SCH (23:12)
[2021-08-17] MEDS: DAPTOmycin SDV 500 MG in NS 0.9% 50 ML 50 ML IVPB SCH (05:13)
[2021-08-17] MEDS: Tiotropium Brom/Olodaterol MDI INH SCH (07:35)
[2021-08-17] MEDS: Multivitamins/Minerals TAB PO SCH (08:43)
[2021-08-17] MEDS: Morphine ER 30 mg TAB ** extended release PO SCH ×2 (08:45→21:20)
[2021-08-17] MEDS: CYANOCOBALAMIN 100 MCG PO SCH (08:46)
[2021-08-18] MEDS: DAPTOmycin SDV 500 MG in NS 0.9% 50 ML 50 ML IVPB SCH (05:31)
[2021-08-18] MEDS: Multivitamins/Minerals TAB PO SCH (08:52)
[2021-08-18] MEDS: Morphine ER 30 mg TAB ** extended release PO SCH ×2 (08:53→21:54)
[2021-08-18] MEDS: CYANOCOBALAMIN 100 MCG PO SCH (08:55)
[2021-08-18] MEDS: Tiotropium Brom/Olodaterol MDI INH SCH (09:20)
[2021-08-19] MEDS: DAPTOmycin SDV 500 MG in NS 0.9% 50 ML 50 ML IVPB SCH (05:27)
[2021-08-19] MEDS: Tiotropium Brom/Olodaterol MDI INH SCH (08:05)
[2021-08-19] MEDS: Multivitamins/Minerals TAB PO SCH (08:21)
[2021-08-19] MEDS: CYANOCOBALAMIN 100 MCG PO SCH (08:22)
[2021-08-19] MEDS: Morphine ER 30 mg TAB ** extended release PO SCH (08:22)
[2021-08-19] MEDS ORDERED: Alteplase (CATHFLO) 2 MG VIAL IV ONE (14:27)
[2021-08-19 15:12] LABS: ABS Basophils 0.1 10^3/ul (0-0.2); ABS Eosinophils 0.2 10^3/ul (0-0.6); ABS Lymphocytes 1.5 10^3/ul (1.0-4.8); ABS Monocytes 0.4 10^3/ul (0-0.8); ABS Neutrophils 2.9 10^3/ul (1.5-7.7); Eosinophil % 4.2 %; Hematocrit 33 % (42-52); Hemoglobin 10.6 g/dL (14.0-18.0); Lymphocyte % 29.7 %; Mean Corpuscular HGB Conc 32 g/dL (31-36); Mean Corpuscular Hemoglobin 24 pg (27-31); Mean Corpuscular Volume 74 fL (80-94); Mean Platelet Volume 9.1 fL (7.4-10.4); Platelet Count 213 10^3/uL (150-450); Red Blood Count 4.43 10^6 /uL (4.18-5.48); Red Cell Distribution Width 17 % (10-15); White Blood Count 5.1 10^3/uL (3.5-10.8)
[2021-08-19 15:35] LABS: Albumin/Globulin Ratio 1.3 (1-3); Calcium 9.8 mg/dL (8.6-10.3); Magnesium 1.9 mg/dL (1.9-2.7); Potassium 4.2 mmol/L (3.5-5.0); Total Bilirubin 0.4 mg/dL (0.2-1.0)
[2021-08-19] MEDS: Morphine ER 15 mg TAB ** extended release PO SCH (21:23)
[2021-08-20] MEDS: DAPTOmycin SDV 500 MG in NS 0.9% 50 ML 50 ML IVPB SCH (05:39)
[2021-08-20] MEDS: Tiotropium Brom/Olodaterol MDI INH SCH (07:58)
[2021-08-20] MEDS: CYANOCOBALAMIN 100 MCG PO SCH (09:05)
[2021-08-20] MEDS: Morphine ER 15 mg TAB ** extended release PO SCH ×2 (09:06→20:13)
[2021-08-20] MEDS: Multivitamins/Minerals TAB PO SCH (09:06)
[2021-08-20 15:34] LABS: Urine Creatinine Concentration 42.47 mg/dL
[2021-08-20] MEDS ORDERED: NS 0.9% 1000 ml BAG 1,000 ML IV ONE (16:09)
[2021-08-21] MEDS: DAPTOmycin SDV 500 MG in NS 0.9% 50 ML 50 ML IVPB SCH (05:37)
[2021-08-21] MEDS: Tiotropium Brom/Olodaterol MDI INH SCH (07:53)
[2021-08-21 08:14] LABS: Calcium 9.4 mg/dL (8.6-10.3); Potassium 4.1 mmol/L (3.5-5.0)
[2021-08-21] MEDS: TESTOSTERONE CYPIONATE 200 MG/ML IM SCH (08:55)
[2021-08-21] MEDS: Polyethylene Glycol 3350 17 GM PACKET PO SCH (08:57)
[2021-08-21] MEDS: Multivitamins/Minerals TAB PO SCH (08:58)
[2021-08-21] MEDS: Morphine ER 15 mg TAB ** extended release PO SCH ×2 (08:59→20:36)
[2021-08-22] MEDS: DAPTOmycin SDV 500 MG in NS 0.9% 50 ML 50 ML IVPB SCH (06:04)
[2021-08-22] MEDS: Tiotropium Brom/Olodaterol MDI INH SCH (08:02)
[2021-08-22 09:31] LABS: C Reactive Protein 3.1 mg/L (<8.01)
[2021-08-22] MEDS: Multivitamins/Minerals TAB PO SCH (09:42)
[2021-08-22] MEDS: Polyethylene Glycol 3350 17 GM PACKET PO SCH (09:43)
[2021-08-22] MEDS: Morphine ER 15 mg TAB ** extended release PO SCH ×2 (09:43→21:33)
[2021-08-22 14:48] LABS: Rapid COVID-19 Molecular Undetected (Undetected)
[2021-08-23] MEDS: DAPTOmycin SDV 500 MG in NS 0.9% 50 ML 50 ML IVPB SCH (05:48)
[2021-08-23 06:54] LABS: Calcium 9.6 mg/dL (8.6-10.3); Potassium 3.8 mmol/L (3.5-5.0)
[2021-08-23] MEDS: Multivitamins/Minerals TAB PO SCH (07:52)
[2021-08-23] MEDS: Morphine ER 15 mg TAB ** extended release PO SCH (07:52)
[2021-08-23] MEDS: Polyethylene Glycol 3350 17 GM PACKET PO SCH (07:54)
[2021-08-23] MEDS: Tiotropium Brom/Olodaterol MDI INH SCH (08:00)
[2021-08-23 11:49] LABS: Anaplasma phagocytophilum Negative (Negative); B. miyamotoi PCR, B Negative (Negative); Babesia divergens/MO-1 Negative (Negative); Babesia ducani Negative (Negative); Ehrlichia chaffeensis Negative (Negative); Ehrlichia ewingii/canis Negative (Negative); Ehrlichia muris eauclairensis Negative (Negative)
[2021-08-23 12:12] VITALS: BP 110/71
== END 2021-08-23 08:51 | DRG 349 ==
LOC: ED 03:13 → EDHOLD 09:23 → SUATTDRO 09:23 → SSU 13:20
PROVIDERS: ADMIT Internal Medicine; ATTEND Internal Medicine

== ENCOUNTER 2022-11-01 14:10 | Inpatient (IN) ==
[2022-11-01 15:00] LABS: ABS Lymphocytes 0.9 10^3/ul (1.0-4.8); ABS Monocytes 0.5 10^3/ul (0-0.8); Eosinophil % 0.1 %; Hematocrit 39 % (42-52); Hemoglobin 12.3 g/dL (14.0-18.0); Lymphocyte % 11.8 %; Mean Corpuscular HGB Conc 31 g/dL (31-36); Mean Corpuscular Hemoglobin 21 pg (27-31); Mean Corpuscular Volume 68 fL (80-94); Mean Platelet Volume 9.7 fL (7.4-10.4); Platelet Count 162 10^3/uL (150-450); Red Blood Count 5.76 10^6 /uL (4.18-5.48); Red Cell Distribution Width 18 % (10-15); White Blood Count 7.4 10^3/uL (3.5-10.8)
[2022-11-01 15:25] LABS: ALT 18 U/L (7-52); Acetaminophen < 15 mcg/mL; Albumin 4.7 g/dL (3.2-5.2); Albumin/Globulin Ratio 1.7 (1-3); Alcohol, S < 13 mg/dL (<13); Alkaline Phosphatase 78 U/L (35-149); Blood Urea Nitrogen 18 mg/dL (6-24); CO2 Carbon Dioxide 23 mmol/L (22-32); Calcium 9.7 mg/dL (8.6-10.3); Chloride 108 mmol/L (101-111); Creatine Kinase 462 U/L (10-223); Creatinine, Serum 1.65 mg/dL (0.67-1.17); Globulin 2.8 g/dL (2-4); Glucose 132 mg/dL (70-100); Salicylate < 2.50 mg/dL (<30); Sodium 137 mmol/L (135-145); Total Protein 7.5 g/dL (6.4-8.9)
[2022-11-01 15:33] LABS: Anion Gap 6 mmol/L (2-11)
[2022-11-01] MEDS ORDERED: NS 0.9% 1000 ml BAG 1,000 ML IV ONE (16:26)
[2022-11-01 17:16] LABS: Potassium Redraw 4.5 mmol/L (3.5-5.0)
[2022-11-01 17:31] LABS: TSH Ultra Thyroid Stim Horm 0.55 mcIU/mL (0.34-5.60)
[2022-11-01 21:49] LABS: Urine Benzodiazepine Screen Presumptive Positive (None Detect); Urine Cannabinoids Screen Presumptive Positive (None Detect); Urine Opiates Screen None Detected (None Detect)
[2022-11-02] MEDS ORDERED: Al Hydrox/Mg Hydrox/Simet LIQ 30 ML UDC PO PRN (02:35)
[2022-11-02] MEDS: Vitamin THERAPEUTIC TAB PO SCH (08:30)
[2022-11-02] MEDS ORDERED: Albuterol 2.5mg/3 ml (0.083%) NEB.SOLN INH PRN (15:13)
[2022-11-02] MEDS: Albuterol HFA INHALER 8 gm MDI INH PRN (15:25)
[2022-11-02] MEDS: Miconazole TOPICAL CREAM 2% 30 GM TOPICAL SCH (22:00)
[2022-11-03 07:42] LABS: HDL Cholesterol 34.1 mg/dL
[2022-11-03] MEDS: Tiotropium Brom/Olodaterol MDI INH SCH (08:03)
[2022-11-03] MEDS: Vitamin THERAPEUTIC TAB PO SCH (08:04)
[2022-11-03] MEDS: Miconazole TOPICAL CREAM 2% 30 GM TOPICAL SCH ×2 (08:07→19:57)
[2022-11-03] MEDS ORDERED: EPINEPHrine Anaphylaxis SYR CERTADOSE SYR KIT IM PRN (14:42)
[2022-11-03] MEDS ORDERED: DOXYCYCLINE HYCLATE 100 MG PO SCH (21:00)
[2022-11-04] MEDS: Albuterol HFA INHALER 8 gm MDI INH PRN (03:22)
[2022-11-04] MEDS: Vitamin THERAPEUTIC TAB PO SCH (07:19)
[2022-11-04] MEDS: Miconazole TOPICAL CREAM 2% 30 GM TOPICAL SCH ×2 (07:19→19:30)
[2022-11-04] MEDS: Tiotropium Brom/Olodaterol MDI INH SCH (07:19)
[2022-11-05] MEDS: Tiotropium Brom/Olodaterol MDI INH SCH (07:53)
[2022-11-05] MEDS: Vitamin THERAPEUTIC TAB PO SCH (07:54)
[2022-11-05] MEDS: Miconazole TOPICAL CREAM 2% 30 GM TOPICAL SCH ×2 (07:55→20:37)
[2022-11-06] MEDS: Tiotropium Brom/Olodaterol MDI INH SCH (08:04)
[2022-11-06] MEDS: Vitamin THERAPEUTIC TAB PO SCH (08:04)
[2022-11-06] MEDS: Miconazole TOPICAL CREAM 2% 30 GM TOPICAL SCH ×2 (10:17→20:21)
[2022-11-07] MEDS: Tiotropium Brom/Olodaterol MDI INH SCH (07:22)
[2022-11-07] MEDS: Vitamin THERAPEUTIC TAB PO SCH (07:23)
[2022-11-07] MEDS: Miconazole TOPICAL CREAM 2% 30 GM TOPICAL SCH (07:25)
[2022-11-07 07:47] VITALS: BP 119/73
== END 2022-11-07 12:44 | disposition home or self-care (01) | DRG 753 ==
LOC: ED 14:10 → EDHOLD 11-02 02:20 → BSU 11-02 02:47
PROVIDERS: ADMIT Psychiatry & Neurology Psychiatry; ATTEND Psychiatry & Neurology Psychiatry